=== PATIENT | male | born 1945 | race Caucasian/White ===

== ENCOUNTER → 2020-10-20 14:34 | Outpatient (BNVA) | payer MEDICARE, MEDICAID, SELFPAY | PROVIDERS: PCP Internal Medicine Geriatric Medicine; Visit Provider Urology | DX: N40.1 Benign prostatic hyperplasia with lower urinary tract symptoms (principal); R39.12 Poor urinary stream; N39.0 Urinary tract infection, site not specified; N13.8 Other obstructive and reflux uropathy | CPT/HCPCS: 81002; 99202 ==

== ENCOUNTER 2020-12-27 09:46 | Outpatient (REF) | payer MEDICARE, MEDICAID, SELFPAY ==
--- NOTE | ~2020-12-27 | US_ITS ---
EXAMINATION: US PELVIS LIMITED (BLADDER) CLINICAL INFORMATION: Poor urinary stream. COMPARISON: None TECHNIQUE: Real-time imaging of the bladder. FINDINGS: BLADDER: Well distended. The bladder wall appears thickened and trabeculated. There are 2 bladder diverticuli measuring 2.8 x 1.8 x 1.8 cm on the right and 1.2 x 1.3 x 1.1 cm on the left. There is increased soft tissue seen at the base of the bladder, question representing lobular contour of the prostate gland. The prostate gland protrudes into the base of the bladder. Bilateral ureteral jets are demonstrated. Prevoid bladder volume is 161 mL. Postvoid bladder volume is 34 mL. US/US bladder IMPRESSION: Thickened trabeculated bladder wall with small bilateral bladder diverticuli. 34 mL post void bladder residual. Abnormal soft tissue at the base of the bladder, question related to lobulated contour of the prostate gland.
[2020-12-27 12:50] LABS: Prostate Specific Antigen 0.49 ng/mL (<0.05-4.0)
== END 2020-12-27 09:47 | disposition home or self-care (01) ==
LOC: HO.US 09:46
PROVIDERS: PCP Internal Medicine Geriatric Medicine; Visit Provider Urology
DX: Z12.5 Encounter for screening for malignant neoplasm of prostate (principal); N13.8 Other obstructive and reflux uropathy; R39.12 Poor urinary stream
CPT/HCPCS: 36415; 76857; 84153

== ENCOUNTER → 2021-01-04 13:38 | Outpatient (BNVA) | payer MEDICARE, MEDICAID, SELFPAY | PROVIDERS: PCP Internal Medicine Geriatric Medicine; Visit Provider Urology | DX: N40.1 Benign prostatic hyperplasia with lower urinary tract symptoms (principal); N13.8 Other obstructive and reflux uropathy; N39.0 Urinary tract infection, site not specified; R39.12 Poor urinary stream | CPT/HCPCS: 52000; 99212 ==

== ENCOUNTER 2021-01-24 10:28 | Day surgery (SDC) | payer MEDICARE, MEDICAID, SELFPAY ==
[2021-01-18 13:12] VITALS: BMI 19.3
[2021-01-18 13:15] VITALS: BP 182/78; PULSE 65; RESP 16; O2SAT 98
--- NOTE | 2021-01-18 13:24 | HO.ANESPROP2 ---
Documented by User: Cleopatra Cliffordney 01/18/21 13:45 HPI - Anesthesia Eval Consult details Narrative: 75yo M for Laser Ablation Prostate w/Green Light Routine cardiac visit 11/2020: some SOB non cardiac, probably r/t long smoking hx (denies SOB at [facility]) Suboxone daily PMFSH Active Problems Active Problems: All Active Problems (Updated 01/18/21 @ 13:19 by America Lin) BPH w urinary obs/LUTS (Acute) Recurrent UTI (urinary tract infection) (Acute) Weak urinary stream (Acute) Past Medical History Medical History (Updated 01/24/21 @ 13:27 by Preethi Faye) BPH (benign prostatic hyperplasia) Chronic low back pain Constipation Erectile dysfunction History of endocarditis History of transesophageal echocardiography (RUDDY) HTN (hypertension) Hx of shortness of breath Hx: UTI (urinary tract infection) Opioid dependence PAF (paroxysmal atrial fibrillation) Family History Family history of problems with anesthesia: No Surgical History Surgical History History of back surgery Hx of cardiac catheterization Hx of mitral valve replacement History of Problems with Anesthesia: No Social History Social History Patient Tobacco Use Status: Former Tobacco user Quit Date: 2018 Tobacco use type: Cigarette Years Smoked: 50 Smoked in Last 30 Days: No Are you DNR?: No Advance Directives: No Advance Directives Information Provided: No Advance Directives on File: No Narrative Narrative: No recent illness. No CP or SOB with minimal actvity Meds Allergies Allergy/AdvReac Type Severity Reaction Status Date / Time enalapril [ENALAPRIL] Allergy Severe Angioedema Verified 01/18/21 09:32 hydrochlorothiazide Allergy Severe Angioedema Verified 01/18/21 09:32 trish inhibitors Allergy Severe Angioedema Uncoded 01/18/21 09:32 Home Medications Medication Instructions Recorded Confirmed Last Taken Type amlodipine 10 mg tablet 10 mg PO QAM 10/20/20 01/24/21 01/24/21 05:30 History aspirin 81 mg tablet,delayed 81 mg PO QAM 10/20/20 01/18/21 Unknown History release buprenorphine 8 mg-naloxone 2 mg 5 mg SUBLINGUAL BID 10/20/20 01/24/21 01/24/21 05:30 History sublingual film 4 mg docusate sodium 100 mg capsule 100 mg PO BID 10/20/20 01/18/21 Unknown History finasteride 5 mg tablet 5 mg PO BEDTIME 10/20/20 01/18/21 Unknown History folic acid 1 mg tablet 1 mg PO BEDTIME 10/20/20 01/18/21 Unknown History hydralazine 50 mg tablet 50 mg PO TID 10/20/20 01/24/21 01/24/21 05:30 History lisinopril 10 mg tablet 10 mg PO QAM 10/20/20 01/18/21 Unknown History mirtazapine 30 mg tablet 30 mg PO BEDTIME 10/20/20 Unknown History propranolol 120 mg capsule,24 120 mg PO QAM 10/20/20 01/24/21 01/24/21 05:30 History hr,extended release albuterol sulfate 2 puff PO Q4-6H PRN 01/18/21 01/18/21 Unknown History Exam Exam Date and Time: January 18, 2021 1324 Height,Weight and Vital Signs: Height 5 ft 6 in Weight 54.3 kg Last Vital Signs Pulse 65 01/18/21 13:15 Resp 16 01/18/21 13:15 BP 182/78 H 01/18/21 13:15 Pulse Ox 98 01/18/21 13:15 Pertinent Lab Results Pertinent Lab Results: Outside labs 08/2020 BMP WNL CBC WBC 4.5 HGB 10.8 (L) HCT 33.2 (L) PLT 111 (L) Narrative Narrative: EKG 11/2020 SB @ 59 Low voltage QRS Lateral infarct (unchanged from prior) ECHO 10/2019 Nml LV chamber size. Nml LV wall thickness Nml Regional wall motion. Nml LV systolic function. EF 55-60%. Indeterminate LV diastolic function. Mild dilated RV with nml sys function. Pulm artery sys pressure is elevated. Mod dilated LA. Mod dilated RA [place] bioprosthetic mitral valve well seated and functioning normally. Airway Mallampati Class: II TM Dist: >3cm Neck ROM: Full Denture: Upper and Lower Heart: RRR +M Lungs: CTAB Assessment and Plan Assessment Anesthesia Assessment: Anesthesia Plan Discussed and PAT Visit Documented by User: Preethi Faye 01/24/21 13:28 [facility] Past Medical History Medical History (Updated 01/24/21 @ 13:27 by Preethi Faye) BPH (benign prostatic hyperplasia) Chronic low back pain Constipation Erectile dysfunction History of endocarditis History of transesophageal echocardiography (RUDDY) HTN (hypertension) Hx of shortness of breath Hx: UTI (urinary tract infection) Opioid dependence PAF (paroxysmal atrial fibrillation) Surgical History Surgical History History of back surgery Hx of cardiac catheterization Hx of mitral valve replacement Social History Social History Patient Tobacco Use Status: Former Tobacco user Quit Date: 2018 Tobacco use type: Cigarette Years Smoked: 50 Smoked in Last 30 Days: No Are you DNR?: No Advance Directives: No Advance Directives Information Provided: No Advance Directives on File: No Meds Allergies Allergy/AdvReac Type Severity Reaction Status Date / Time enalapril [ENALAPRIL] Allergy Severe Angioedema Verified 01/18/21 09:32 hydrochlorothiazide Allergy Severe Angioedema Verified 01/18/21 09:32 trish inhibitors Allergy Severe Angioedema Uncoded 01/18/21 09:32 Home Medications Medication Instructions Recorded Confirmed Last Taken Type amlodipine 10 mg tablet 10 mg PO QAM 10/20/20 01/24/21 01/24/21 05:30 History aspirin 81 mg tablet,delayed 81 mg PO QAM 10/20/20 01/18/21 Unknown History release buprenorphine 8 mg-naloxone 2 mg 5 mg SUBLINGUAL BID 10/20/20 01/24/21 01/24/21 05:30 History sublingual film 4 mg docusate sodium 100 mg capsule 100 mg PO BID 10/20/20 01/18/21 Unknown History finasteride 5 mg tablet 5 mg PO BEDTIME 10/20/20 01/18/21 Unknown History folic acid 1 mg tablet 1 mg PO BEDTIME 10/20/20 01/18/21 Unknown History hydralazine 50 mg tablet 50 mg PO TID 03/06/0201/24/21 01/24/21 05:30 History lisinopril 10 mg tablet 10 mg PO QAM 10/20/20 01/18/21 Unknown History mirtazapine 30 mg tablet 30 mg PO BEDTIME 10/20/20 Unknown History propranolol 120 mg capsule,24 120 mg PO QAM 10/20/20 01/24/21 01/24/21 05:30 History hr,extended release albuterol sulfate 2 puff PO Q4-6H PRN 01/18/21 01/18/21 Unknown History Exam Height,Weight and Vital Signs: Vital Signs Temp Pulse Resp BP Pulse Ox 01/24/21 11:25 97.3 F 62 16 167/65 H 99 Airway Mallampati Class: II TM Dist: >3cm Neck ROM: Full Denture: Upper and Lower Heart: RRR + murmur Lungs: CTAB Assessment and Plan Assessment Anesthesia Assessment: Anesthesia Plan Discussed and Chart Reviewed Final Anesthetic Review NPO: Yes ASA Class: III Final Preanesthetic Review: No Changes in Pt Med Stat, Meds/Allgs Chart Reviewed, Consent Obtained/Reviewed and Anes Risks/Benef Reviewed Patient Risk: Intermediate Procedure Risk: Intermediate Assessment/Block/Sedation in SS: Assess/Block/Sedation-SS Anesthetic Plan Anesthetic Plan: GA Disposition: Standard PACU
[2021-01-24] MEDS: levoFLOXacin/D5W 500 MG/100 ML PIGGYBACK 100 MG IV (11:24)
[2021-01-24] MEDS: Lactated Ringers 1,000 ML 50 ML IVCONT (11:24)
[2021-01-24 11:25] VITALS: BP 167/65; PULSE 62; RESP 16; TEMP 36.3; O2SAT 99
--- NOTE | 2021-01-24 12:30 | P.HPSUR_ITS ---
Pre-Procedural Eval Section B Chief Complaint: Hyperplasia Details of Present Illness: BPH Relevant Family History (Specify if Yes): No Relevant Social History: None Present Medications: see Short Stay Collaborative assessment Medical History: No relevant PMH History of Previous Operations: Relevant previous surgery/procedure and date(s) Allergies: Allergies Allergy/AdvReac Type Severity Reaction Status Date / Time enalapril [ENALAPRIL] Allergy Severe Angioedema Verified 01/18/21 09:32 hydrochlorothiazide Allergy Severe Angioedema Verified 01/18/21 09:32 trish inhibitors Allergy Severe Angioedema Uncoded 01/18/21 09:32 Review of Systems Sugical H&P ROS: Negative: Constitution, Cardiovascular, Respiratory, Neurological, Psychiatric, Hem-Onc, Allergic/Immunologic, Gastrointestinal, Genitourinary, Musculoskeletal, Integumentary, Endocrine and Eyes/Ea rs/Nose/Throat Exam Surgical H&P Exam: Normal: HEENT, Normal: Heart, Normal: Lungs, Normal: Extremities, Normal: Abdomen, Normal: Skin and Normal: Neurological Plan Diagnosis/Plan: Unchanged (GreenLight laser prostatectomy) I have reviewed the history and physical and performed a pertinent physical examination on my patient. No changes have occurred unless specified.
--- NOTE | 2021-01-24 13:41 | W.PM.OPN ---
Operative Note Operative Note Date of Service: 01/24/21 Narrative: PreOperative Diagnosis: Bladder outlet obstruction Post Operative Diagnosis: Bladder outlet obstruction Procedure: GreenLight laser enucleation of the prostate Surgeon: Dr Bernardo Jones Anesthesia: General Indications for procedure: History of bladder outlet obstruction. Treated with alpha-chula and other medications. Still with symptoms. On cystoscopy in office has - prominent median lobe Recommendation for prostate procedure with laser enucleation of prostate. It has been discussed. Focus was placed on development of retrograde examination which is a normal part of this procedure. Procedure: After informed consent was verified the patient was brought to the operating room and placed in a supine position. Anesthesia was administered per protocol. Patient was placed in modified dorsal lithotomy position and prepped and draped in a sterile fashion. Safety pause time-out was confirmed. Antibiotics have been given. Twenty-four [place] laser cystoscope was inserted per urethra. No abnormalities found the anterior posterior urethra. The bladder was filled on both ureteric orifices were seen in normal position away from our area of interest. Using a GreenLight laser settings of 80 w incisions were made at the 5 and 7 o'clock position. They were taken down and then laterally on each side. They were brought from the bladder neck down to the level of the veru. These defined the lateral aspects of the median lobe area. The median lobe was ablated and enucleated tissue removed. Once the median lobe area had been cleaned attention was directed to the lateral lobes. We started with the patient's left lateral lobe. Firstly the 05:00 o'clock groove was further developed. This was moved in the lateral position to undermine the tissue on the lateral side. Focus was then placed on the laser at the 1 o'clock position in developing a secondary groove down to the level of bladder fibers. The intervening tissue between these 2 grooves was removed with a combination of enucleation ablation working from the apex toward the bladder neck. A similar procedure was repeated on the patient's right-hand side. When this was completed debris and pieces of prostate removed from the bladder. Both ureteric orifices were reviewed again in shown to be patent in away from any areas of energy damage. The apical area was reviewed in any stray ooze was controlled. A 22 [place] 30 cc balloon Monroy catheter was placed over stylet into the bladder. Clear efflux was obtained. 30 cc was placed in the balloon and gentle traction was placed. A snap was used to hold tension once the patient will be moved and transported. Once transportation its finish this novel be removed. A belladonna and opiate suppository was placed for postprocedure pain management. He tolerated procedure well was extubated in the operating and transferred in a stable condition to the recovery area. One hundred six kilojoule, lasing time 14 minutes Pathology: Prostate tissue Drains: Monroy catheter
[2021-01-24 13:50] VITALS: BP 134/51; PULSE 61; RESP 12; TEMP 36.3; O2SAT 99
[2021-01-24 13:55] VITALS: BP 148/66; PULSE 61; RESP 16; O2SAT 96
[2021-01-24 14:00] VITALS: BP 159/61; PULSE 60; RESP 16; O2SAT 96
[2021-01-24 14:05] VITALS: BP 158/66; PULSE 66; RESP 16; O2SAT 95
[2021-01-24 14:20] VITALS: BP 152/64; PULSE 63; RESP 16; TEMP 36.3; O2SAT 96
== END 2021-01-24 15:10 | disposition home or self-care (01) ==
PROVIDERS: PCP Internal Medicine Geriatric Medicine; Visit Provider Urology
PROC: (CPT 52648; principal; 2021-01-24 12:20)
DX: N40.1 Benign prostatic hyperplasia with lower urinary tract symptoms (principal); N13.8 Other obstructive and reflux uropathy; I10 Essential (primary) hypertension; I48.0 Paroxysmal atrial fibrillation; Z79.01 Long term (current) use of anticoagulants; Z79.82 Long term (current) use of aspirin; Z79.899 Other long term (current) drug therapy; Z87.891 Personal history of nicotine dependence; Z88.8 Allergy status to other drugs, medicaments and biological substances
CPT/HCPCS: 52649; 88305; J1100; J1956; J2405; J3010

== ENCOUNTER → 2021-01-27 11:18 | Outpatient (BNVA) | payer MEDICARE, MEDICAID, SELFPAY | PROVIDERS: PCP Internal Medicine Geriatric Medicine; Visit Provider Urology | DX: N40.1 Benign prostatic hyperplasia with lower urinary tract symptoms (principal); N13.8 Other obstructive and reflux uropathy; N39.0 Urinary tract infection, site not specified; R39.12 Poor urinary stream | CPT/HCPCS: 51700; 99212 ==

== ENCOUNTER 2021-05-04 16:33 | Outpatient (REF) | payer MEDICARE, MEDICAID, SELFPAY ==
--- NOTE | ~2021-05-04 | XR_ITS ---
EXAMINATION: XR CHEST CLINICAL INFORMATION: Abnormal weight loss COMPARISON: Previous chest x-ray February 2017 TECHNIQUE: 2 views of the chest were obtained. FINDINGS: The heart does not appear enlarged. There are new postsurgical changes. Hilar and mediastinal contours are unremarkable. The lungs are clear. There is no pleural effusion or pneumothorax. There are old left posterior lower rib fractures. There are median sternotomy wires. XR/XR chest 2V IMPRESSION: No evidence for acute disease in the chest. Cardiac postsurgical changes new in the interval from February 2017.
== END 2021-05-04 16:34 | disposition home or self-care (01) ==
LOC: HO.XRAY 16:33
PROVIDERS: PCP Internal Medicine Geriatric Medicine; Visit Provider Internal Medicine Geriatric Medicine
DX: R63.4 Abnormal weight loss (principal)
CPT/HCPCS: 71046

== ENCOUNTER 2021-06-21 13:41 | Outpatient (REF) | payer MEDICARE, MEDICAID, SELFPAY ==
[2021-06-21 16:15] LABS: Alanine Aminotransferase 10 U/L (0-40); Albumin Level 4.2 g/dL (3.5-5.0); Alkaline Phosphatase 62 U/L (39-117); Anion Gap 10 (12-20); Aspartate Amino Transferase 16 U/L (5-37); Bilirubin Total 0.4 mg/dL (0.0-1.0); Blood Urea Nitrogen 16 mg/dL (9-16); Calcium 9.1 mg/dL (8.4-10.2); Carbon Dioxide 30 mmol/L (22-29); Chloride 102 mmol/L (96-108); Estimated Glomerular Filt Rate 48; Glucose Random 102 mg/dL (60-115); Sodium 138 mmol/L (135-145); Total Protein 7.3 g/dL (6.5-8.0)
== END 2021-06-21 13:42 | disposition home or self-care (01) ==
LOC: HO.LAB 13:41
PROVIDERS: PCP Internal Medicine Geriatric Medicine; Referring Provider Internal Medicine Geriatric Medicine; Visit Provider Nurse Practitioner
DX: R63.4 Abnormal weight loss (principal); R09.89 Other specified symptoms and signs involving the circulatory and respiratory systems; R25.1 Tremor, unspecified
CPT/HCPCS: 36415; 80053; 99202

== ENCOUNTER 2023-07-18 10:31 | Outpatient (REF) | payer MEDICARE, MEDICAID, SELFPAY ==
[2023-07-18 11:13] LABS: MANUAL DIFF FLAG NO
[2023-07-18 11:36] LABS: Basophils Absolute Auto 0.1 X10*3/uL (0.0-0.2); Basophils Percent Auto 1.1 % (0-2); Eosinophils Absolute Auto 0.1 X10*3/uL (0.0-0.4); Eosinophils Percent Auto 1.1 % (0-4); Hemoglobin 13.3 g/dl (14.0-18.0); Imm Gran Abs Auto 0.02 X10*3/uL (0.00-0.03); Imm Gran Pct Auto 0.3 % (0.0-0.4); Lymphocytes Absolute Auto 2.8 X10*3/uL (1.2-4.9); Lymphocytes Percent Auto 38.9 % (20-40); Mean Corpuscular HGB Conc 31.7 g/dl (31.0-36.0); Mean Corpuscular Hemoglobin 28.2 pg (27.0-33.0); Mean Corpuscular Volume 89.2 fL (80.0-98.0); Monocytes Absolute Auto 0.6 X10*3/uL (0.1-1.2); Monocytes Percent Auto 7.5 % (2-11); Neutrophils Absolute Auto 3.7 x10*3/uL (2.0-8.3); Neutrophils Percent Auto 51.1 % (45-73); Platelet Count 196 X10*3/uL (160-400); Red Blood Count 4.71 X10*6/uL (4.60-5.80); Red Cell Distribution Width 12.2 % (11.0-16.0); White Blood Count 7.3 X10*3/uL (4.8-10.8)
[2023-07-18 12:12] LABS: Alanine Aminotransferase 9 U/L (0-40); Albumin Level 4.2 g/dL (3.5-5.0); Alkaline Phosphatase 78 U/L (39-117); Anion Gap 14 (12-20); Aspartate Amino Transferase 19 U/L (5-37); Bilirubin Direct 0.2 mg/dL (0.0-0.5); Bilirubin Total 0.6 mg/dL (0.0-1.0); Blood Urea Nitrogen 16 mg/dL (9-16); Calcium 9.7 mg/dL (8.4-10.2); Carbon Dioxide 29 mmol/L (22-29); Chloride 99 mmol/L (96-108); Estimated Glomerular Filt Rate > 60; Glucose Random 97 mg/dL (60-115); Potassium 3.4 mmol/L (3.3-5.1); Sodium 139 mmol/L (135-145); Total Protein 8.3 g/dL (6.5-8.0)
== END 2023-07-18 10:32 | disposition home or self-care (01) ==
LOC: HO.HHCL 10:31
PROVIDERS: Visit Provider Internal Medicine Geriatric Medicine
DX: I10 Essential (primary) hypertension (principal)
CPT/HCPCS: 36415; 80048; 80076; 85025

== ENCOUNTER 2023-09-12 10:27 | Outpatient (REF) | payer MEDICARE, MEDICAID, SELFPAY ==
[2023-09-12 12:26] LABS: Cholesterol 154 mg/dL (<200); HDL Cholesterol 33 mg/dL (>40); LDL Cholesterol Calculated 104 mg/dL (<100); Triglycerides 87 mg/dL (<150)
== END 2023-09-12 10:28 | disposition home or self-care (01) ==
LOC: HO.HHCL 10:27
PROVIDERS: Visit Provider Internal Medicine Geriatric Medicine
DX: I25.10 Atherosclerotic heart disease of native coronary artery without angina pectoris (principal)
CPT/HCPCS: 36415; 80061

== ENCOUNTER 2023-11-07 10:17 | Outpatient (REF) | payer MEDICARE, MEDICAID, SELFPAY ==
[2023-11-07 11:58] LABS: Anion Gap 9 (12-20); Blood Urea Nitrogen 15 mg/dL (9-16); Calcium 9.5 mg/dL (8.4-10.2); Carbon Dioxide 32 mmol/L (22-29); Chloride 103 mmol/L (96-108); Estimated Glomerular Filt Rate > 60; Glucose Random 103 mg/dL (60-115); Potassium 3.8 mmol/L (3.3-5.1); Sodium 140 mmol/L (135-145)
== END 2023-11-07 10:18 | disposition home or self-care (01) ==
LOC: HO.HHCL 10:17
PROVIDERS: Visit Provider Internal Medicine Geriatric Medicine
DX: I10 Essential (primary) hypertension (principal); F32.A Depression, unspecified
CPT/HCPCS: 36415; 80048

== ENCOUNTER 2024-05-29 13:54 | Outpatient (REF) | payer MEDICARE, MEDICAID, SELFPAY | END 2024-05-29 13:55 | disposition home or self-care (01) | LOC: HO.LNP 13:54 | PROVIDERS: PCP Internal Medicine Geriatric Medicine; Visit Provider Surgery | DX: L72.0 Epidermal cyst (principal) | CPT/HCPCS: 11403; 88304; 99202 ==

== ENCOUNTER 2024-05-29 13:54 | Outpatient (AMB) | payer MEDICARE, MEDICAID, SELFPAY ==
--- NOTE | 2024-05-29 13:57 | MHC.OFFVIS ---
Vital Signs 05/29/24 14:05 Height 5 ft 6 in Weight 121 lb BMI 19.5 Intake Visit Reasons: Skin cyst Intake Note: This patient presents for skin cyst assessment. Pt c/o; reports large cyst left chest wall, reports he developed this after heart surgery for valve 4-5 years ago, reports was never given antibiotics for this issue. Senior Medical Writer Required: Yes Senior Medical Writer Language: Appliance Assembler Services: Senior Medical Writer Offered & Declined (Daughter present during visit) Accompanied by: Daughter Allergies enalapril [ENALAPRIL] Allergy (Severe, Verified 05/29/24 14:06) Angioedema hydrochlorothiazide Allergy (Severe, Verified 05/29/24 14:06) Angioedema trish inhibitors Allergy (Severe, Uncoded 05/29/24 14:06) Angioedema Medication List - Last Reconciled 05/29/24 by Aubrey Evans MD albuterol sulfate 90 mcg/actuation 2 puffs PO Q4-6H PRN amlodipine 10 mg PO QAM aspirin 81 mg PO QAM buprenorphine-naloxone 8-2 mg 5 mg sublingual BID docusate sodium 100 mg PO BID finasteride 5 mg PO BEDTIME finasteride 5 mg PO DAILY 30 days folic acid 1 mg PO BEDTIME furosemide 20 mg PO DAILY hydralazine 50 mg PO TID hydralazine 25 mg PO BID lisinopril 10 mg PO QAM mirtazapine 30 mg PO BEDTIME naloxone 4 mg/actuation (Narcan) 1 spray intranasal ONCE PRN propranolol ER 120 mg PO QAM sertraline 50 mg PO DAILY tamsulosin 0.4 mg PO BEDTIME tramadol 50 mg PO Q6H PRN trimethoprim 100 mg PO Q12H 10 days HPI HPI Skin cyst: Details: 78-year-old male here for a cyst on the anterior chest wall. He has had this for years. This has been increasing in size. He occasionally notices some foul-smelling drainage. Wants this removed therefore. [facility] Medical History (Updated 05/29/24 @ 14:31 by Aubrey Evans MD) Epidermal inclusion cyst Opioid dependence PAF (paroxysmal atrial fibrillation) History of transesophageal echocardiography (RUDDY) History of endocarditis BPH (benign prostatic hyperplasia) HTN (hypertension) Hx of shortness of breath Hx: UTI (urinary tract infection) Erectile dysfunction Constipation Chronic low back pain Surgical History History of back surgery Hx of cardiac catheterization Hx of mitral valve replacement Social History Patient Tobacco Use Status: Former Tobacco user Tobacco use type: Cigarette Years Smoked: 50 Review of Systems Const Denies chills and Denies fever(s) Card Denies chest pain, Denies dyspnea and Denies dyspnea on exertion Resp Denies cough, Denies dyspnea and Denies dyspnea on exertion GI Denies hematochezia and Denies change in bowel habits Denies hematuria and Denies difficulty urinating Musc Denies back pain and Denies limited range of motion Neuro Denies focal weakness and Denies convulsions Psych Denies depression and Denies mood swings Physical Exam Vital Signs: BMI result Body Mass Index 19.5 Const General: comfortable and no acute distress Orientation/consciousness: patient oriented x3 Neck Neck: Yes no lymphadenopathy Chest Other: Well-defined cystic mass on the left anterior chest wall consistent with epidermal inclusion cyst, measuring about 2.5 cm Resp Auscultation: clear to auscultation bilaterally Cardio Rhythm: regular rhythm GI Palpation (GI): Soft to palpation, nontender and no guarding Neuro General: patient oriented x3 Office Procedures Excision Details: He was in supine position. The area of the cyst was prepped and draped. Lidocaine 1% was used for local anesthesia. I made an incision on the skin overlying the cyst using blade 15. And this was carried down through the full-thickness of the skin. I did sharp dissection with fine scissors until was able to visualize the cyst capsule. I sharply dissected around the cyst capsule until I was able to circumferentially separate this. This was sent as a specimen. This measured about 2.5 cm. I irrigated. I closed the incision with full-thickness nylon 3-0 simple interrupted sutures. Dressings were applied. The procedure was completed. There was minimal blood loss. 28874-zfdef/arms/legs 2.1-3cm Procedure code (CPT) selection complete Assessment & Plan Assessment & Plan (1) Epidermal inclusion cyst: Code(s): L72.0 - Epidermal cyst Category: Medical Plan: Excision of this epidermal inclusion cyst was done under local anesthesia. He tolerated the procedure well. He was given wound care instructions. He can take Tylenol or ibuprofen p.r.n. for pain. I will see him in the office in about 2 weeks for removal of sutures. Coding Level of Care Code New Pt Level 3 (72618) Diagnoses Epidermal inclusion cyst L72.0 CPT Codes Trunk/Arms/Legs - CPT: 30234-zciqf/arms/legs 2.1-3cm ([id number])
[2024-05-29 14:05] VITALS: BMI 19.5
== END 2024-05-29 14:21 | disposition home or self-care (01) ==
PROVIDERS: PCP Internal Medicine Geriatric Medicine; Visit Provider Surgery
DX: L72.0 Epidermal cyst (principal)
CPT/HCPCS: 11403; 99203

== ENCOUNTER 2024-06-12 13:17 | Outpatient (AMB) | payer MEDICARE, MEDICAID, SELFPAY ==
--- NOTE | 2024-06-12 13:18 | A.OFFVIS_ITS ---
Intake Visit Reasons: stitches to be removed Intake Note: This patient presents for suture removal status post excision of epidermal inclusion cyst. Pt c/o; reports some bleeding from the incision, reports no fever, chills, nausea or vomiting. Real Estate Sales Supervisor Required: Yes Real Estate Sales Supervisor Language: Patient Appointment Coordinator Services: Real Estate Sales Supervisor Present Real Estate Sales Supervisor Name: Jane Information Interpreted: non-clinical & clinical Accompanied by: Other Relationship Allergies enalapril [ENALAPRIL] Allergy (Severe, Verified 06/12/24 13:27) Angioedema hydrochlorothiazide Allergy (Severe, Verified 06/12/24 13:27) Angioedema trish inhibitors Allergy (Severe, Uncoded 06/12/24 13:27) Angioedema HPI HPI stitches to be removed: Details: He underwent excision of a cyst from the anterior chest wall last May 29, 2024. This was done under local anesthesia. He tolerated procedure well. He currently denies complaints. [facility] Medical History Epidermal inclusion cyst Opioid dependence PAF (paroxysmal atrial fibrillation) History of transesophageal echocardiography (RUDDY) History of endocarditis BPH (benign prostatic hyperplasia) HTN (hypertension) Hx of shortness of breath Hx: UTI (urinary tract infection) Erectile dysfunction Constipation Chronic low back pain Surgical History History of excision of epidermal inclusion cyst (~05/29/24) History of back surgery Hx of cardiac catheterization Hx of mitral valve replacement Social History Patient Tobacco Use Status: Former Tobacco user Tobacco use type: Cigarette Years Smoked: 50 Review of Systems Const Denies chills and Denies fever(s) Physical Exam Const General: comfortable and no acute distress Chest Other: Excision site is well healed, not infected, sutures intact Assessment & Plan Assessment & Plan (1) Epidermal inclusion cyst: Code(s): L72.0 - Epidermal cyst Category: Medical Plan Status post excision. I removed his sutures. The incision is well healed although there is some scabbing. His path report shows an epidermal cyst. He can follow up on a p.r.n. basis. Coding Level of Care Code Global (86462) Diagnoses Epidermal inclusion cyst L72.0
== END 2024-06-12 13:40 | disposition home or self-care (01) ==
LOC: HO.HGS 13:18
PROVIDERS: PCP Internal Medicine Geriatric Medicine; Visit Provider Surgery
DX: L72.0 Epidermal cyst (principal)
CPT/HCPCS: 99024

== ENCOUNTER → 2024-06-12 13:17 | Outpatient (BNVA) | payer MEDICARE, MEDICAID, SELFPAY | PROVIDERS: PCP Internal Medicine Geriatric Medicine; Visit Provider Surgery | DX: Z48.02 Encounter for removal of sutures (principal); Z87.2 Personal history of diseases of the skin and subcutaneous tissue | CPT/HCPCS: 99212 ==

== ENCOUNTER 2024-07-02 11:09 | Outpatient (REF) | payer MEDICARE, MEDICAID, SELFPAY ==
[2024-07-02 13:26] LABS: MANUAL DIFF FLAG NO
[2024-07-02 13:31] LABS: Basophils Absolute Auto 0.1 X10*3/uL (0.0-0.2); Basophils Percent Auto 1.2 % (0-2); Eosinophils Absolute Auto 0.1 X10*3/uL (0.0-0.4); Eosinophils Percent Auto 1.7 % (0-4); Hematocrit 34.7 % (42.0-52.0); Hemoglobin 10.9 g/dl (14.0-18.0); Imm Gran Abs Auto 0.01 X10*3/uL (0.00-0.03); Imm Gran Pct Auto 0.2 % (0.0-0.4); Lymphocytes Absolute Auto 1.5 X10*3/uL (1.2-4.9); Lymphocytes Percent Auto 26.4 % (20-40); Mean Corpuscular HGB Conc 31.4 g/dl (31.0-36.0); Mean Corpuscular Hemoglobin 29.1 pg (27.0-33.0); Mean Corpuscular Volume 92.5 fL (80.0-98.0); Mean Platelet Volume 12.4 fL (9.4-12.4); Monocytes Absolute Auto 0.4 X10*3/uL (0.1-1.2); Monocytes Percent Auto 7.6 % (2-11); Neutrophils Absolute Auto 3.7 x10*3/uL (2.0-8.3); Neutrophils Percent Auto 62.9 % (45-73); Platelet Count 167 X10*3/uL (160-400); Red Blood Count 3.75 X10*6/uL (4.60-5.80); Red Cell Distribution Width 13.2 % (11.0-16.0); White Blood Count 5.8 X10*3/uL (4.8-10.8)
[2024-07-02 13:50] LABS: Alanine Aminotransferase 10 U/L (0-40); Albumin Level 4.1 g/dL (3.5-5.0); Alkaline Phosphatase 70 U/L (39-117); Anion Gap 9 (12-20); Aspartate Amino Transferase 21 U/L (5-37); Bilirubin Total 0.5 mg/dL (0.0-1.0); Blood Urea Nitrogen 17 mg/dL (9-16); Calcium 9.1 mg/dL (8.4-10.2); Carbon Dioxide 32 mmol/L (22-29); Chloride 102 mmol/L (96-108); Estimated Glomerular Filt Rate 50; Glucose Random 100 mg/dL (60-115); Potassium 3.9 mmol/L (3.3-5.1); Sodium 139 mmol/L (135-145); Total Protein 7.4 g/dL (6.5-8.0)
[2024-07-02 14:02] LABS: HIV AB/AG Nonreactive (Nonreactive); HIV Num 1 0.04 S/CO (0.00-0.99); ~HepC Num1 0.41 S/CO (0.00-0.79); ~Hepatitis C Antibody Nonreactive (Nonreactive)
[2024-07-02 14:09] LABS: TSH reflex Free T4 2.24 uIU/mL (0.32-4.0)
[2024-07-02 14:10] LABS: Erythrocyte Sedimentation Rate 18 MM/HR (0-15)
== END 2024-07-02 11:10 | disposition home or self-care (01) ==
LOC: HO.HHCL 11:09
PROVIDERS: Visit Provider Internal Medicine Geriatric Medicine
DX: R63.4 Abnormal weight loss (principal)
CPT/HCPCS: 36415; 80053; 84443; 85025; 85652; 86803; 87389

== ENCOUNTER 2024-07-23 12:41 | Outpatient (REF) | payer MEDICARE, MEDICAID, SELFPAY ==
--- NOTE | 2024-07-24 08:01 | MHC.AU.MED ---
Medical Clearance for Hearing Instrumentation Date: 07/24/24 Patient Name: Samuel Escudero Date of : 1945 Primary Care Provider: Dr Harvinder Melvin We have seen your patient on 07/24/24 and have determined that they are a candidate for amplification (See accompanying report). Specifically, they would benefit from: Hearing aid use in both ears There is a statute that addresses Medical Evaluation Requirements prior to fitting a patient with a hearing aid. According to [place] statute [facility] CMR:6.03(1), (a) General. Except as provided in 265 CMR 6.03(1)(b), a scanner supervisor shall not sell a hearing aid unless the prospective user has presented to the scanner supervisor a written statement signed by a licensed physician that states that the patient's hearing loss has been medically evaluated and the patient may be considered a candidate for a hearing aid. The medical evaluation must have taken place within the preceding six months. Please note: Due to the [place] Statute referenced above, we cannot accept a signature other than that of a licensed physician. FIRE SAFETY INSPECTOR and PA signatures cannot be accepted. I am in agreement with the above recommendation. There is no medical contraindication for hearing instrumentation. Physician Signature Date Physician Name (Printed)
--- NOTE | 2024-07-24 08:15 | MHC.AU.HA1 ---
Hearing Aid Evaluation Date of Visit: 07/23/24 Physiology Teacher Used: Historical Information: Description of Hearing: Right ear: normal sloping to severe SNHL Left ear: profound SNHL Summary: Serbian is here for evaluation and hearing aid selection with his daughter who interpreted. He reportedly wore hearing aids over 20 years ago but has not worn any amplification since. Initially reported hesitation about trying hearing aids again but became more enthusiastic about the idea as we spoke about new options, acknowledges frustration with not being able to understand people. Discussed unilateral fitting vs bicros, would like to try bicros to start. Will request medical clearance and contact pt once aids arrive. Hearing Aid Prescription: Based on the individual?s shared listening needs, communication environments, dexterity, desire for connectivity, and personal preferences, the following prescription for amplification has been made: Right ear: Make, Model, Color: Oticon Real 2 miniRITE R, kayleigh black Battery Size: Rechargeable Medical Dir/Slim Tube: 2 85g Type of Earmold/Dome/CShell/SlimTip: 8mm dbl weaver Left ear: Left ear prescription to be same as Right Hearing Aid above: Make, Model, Color: Oticon Real 2 miniRITE R CROS, kayleigh black Battery Size: Rechargeable Medical Dir/Slim Tube: 2 cros Type of Earmold/Dome/CShell/SlimTip: 8mm open Accessories/Assistive Technology Recommended: manager psychology Plan of Care: Patient wishes to purchase hearing aids as prescribed Action Taken/Action Needed: Medical Clearance to be requested from PCP/ENT Hearing Instrument Fitting to be scheduled when materials arrive Primary Diagnosis: H90.3 Bilateral Sensorineural Hearing Loss Signature: Provider: Urban Martinez, CCC-A
== END 2024-07-23 12:42 | disposition home or self-care (01) ==
LOC: HO.SH 12:41
PROVIDERS: Visit Provider Family Medicine
DX: Z01.118 Encounter for examination of ears and hearing with other abnormal findings (principal); Z46.1 Encounter for fitting and adjustment of hearing aid; H90.3 Sensorineural hearing loss, bilateral
CPT/HCPCS: 92557; 92591

== ENCOUNTER 2024-08-28 10:35 | Outpatient (REF) | payer MEDICARE, MEDICAID, SELFPAY | END 2024-08-28 10:36 | disposition home or self-care (01) | LOC: HO.HAP 10:35 | PROVIDERS: Visit Provider Internal Medicine Geriatric Medicine | DX: Z46.1 Encounter for fitting and adjustment of hearing aid (principal); H90.3 Sensorineural hearing loss, bilateral | CPT/HCPCS: V5011; V5020; V5221; V5240 ==

== ENCOUNTER 2024-11-03 13:53 | Outpatient (REF) | payer MEDICARE, MEDICAID, SELFPAY ==
--- NOTE | ~2024-11-03 | XR_ITS ---
EXAMINATION: XR CHEST 2 VIEWS HISTORY: weight loss COMPARISON: Comparison is made with the prior examination dated 05/04/2021. FINDINGS: PA and lateral views of the chest are submitted. In the hyperinflated, consistent with COPD. The lungs are clear. There is no pleural effusion, pneumothorax, or pulmonary vascular congestion. The heart is normal in size. The patient is status post median sternotomy and valve replacement. The aorta is calcified. The bones are intact. XR/XR chest 2V IMPRESSION: COPD. No acute cardiopulmonary abnormality. Electronically signed by: Mic Dumont MD 11/03/2024 02:35 PM EDT
[2024-11-03 16:12] LABS: MANUAL DIFF FLAG NO
[2024-11-03 16:25] LABS: Basophils Absolute Auto 0.1 X10*3/uL (0.0-0.2); Basophils Percent Auto 1.5 % (0-2); Eosinophils Absolute Auto 0.1 X10*3/uL (0.0-0.4); Eosinophils Percent Auto 1.1 % (0-4); Hematocrit 35.5 % (42.0-52.0); Imm Gran Abs Auto 0.01 X10*3/uL (0.00-0.03); Imm Gran Pct Auto 0.2 % (0.0-0.4); Lymphocytes Absolute Auto 2.1 X10*3/uL (1.2-4.9); Lymphocytes Percent Auto 31.8 % (20-40); Mean Corpuscular Volume 93.7 fL (80.0-98.0); Mean Platelet Volume 12.9 fL (9.4-12.4); Monocytes Absolute Auto 0.5 X10*3/uL (0.1-1.2); Monocytes Percent Auto 6.9 % (2-11); Neutrophils Absolute Auto 3.8 x10*3/uL (2.0-8.3); Neutrophils Percent Auto 58.5 % (45-73); Platelet Count 211 X10*3/uL (160-400); Red Blood Count 3.79 X10*6/uL (4.60-5.80); Red Cell Distribution Width 12.8 % (11.0-16.0); White Blood Count 6.5 X10*3/uL (4.8-10.8)
[2024-11-03 16:42] LABS: Alanine Aminotransferase 9 U/L (0-40); Albumin Level 4.1 g/dL (3.5-5.0); Anion Gap 12 (12-20); Aspartate Amino Transferase 25 U/L (5-37); Bilirubin Total 0.5 mg/dL (0.0-1.0); Blood Urea Nitrogen 23 mg/dL (9-16); Calcium 9.7 mg/dL (8.4-10.2); Carbon Dioxide 29 mmol/L (22-29); Chloride 104 mmol/L (96-108); Estimated Glomerular Filt Rate 44; Glucose Random 85 mg/dL (60-115); Iron 57 mcg/dL (45-160); Percent Iron Saturation 26 % (15-50); Potassium 4.9 mmol/L (3.3-5.1); Sodium 140 mmol/L (135-145); Total Iron Binding Capacity 221 mcg/dL (228-428); Total Protein 7.6 g/dL (6.5-8.0); Unsaturated Iron Binding 164 ug/dL
[2024-11-03 17:02] LABS: Alkaline Phosphatase 55 U/L (39-117)
[2024-11-03 17:03] LABS: Erythrocyte Sedimentation Rate 20 MM/HR (0-15); Vitamin D 25-OH Total 14.2 ng/mL (>30)
[2024-11-03 17:17] LABS: Ferritin 240 ng/mL (20-250)
[2024-11-04 05:21] LABS: HIV AB/AG Nonreactive (Nonreactive); HIV Num 1 0.09 S/CO (0.00-0.99); ~HepC Num1 0.35 S/CO (0.00-0.79); ~Hepatitis C Antibody Nonreactive (Nonreactive)
[2024-11-04 05:33] LABS: HBS Num1 0.66 mIU/mL (0-7.99); HBc Num1 0.09 S/CO (0.00-0.79); HBsAGNum1 0.27 S/CO (0.00-0.99); Hepatitis B Core Antibody Nonreactive (Nonreactive); Hepatitis B Surface Antigen Negative (Negative); ~Hepatitis B Surface Antibody NONREACTIVE (Nonreactive)
== END 2024-11-03 13:54 | disposition home or self-care (01) ==
LOC: HO.HHCL 13:53
PROVIDERS: Family Medicine; Visit Provider Internal Medicine Geriatric Medicine
DX: Z00.01 Encounter for general adult medical examination with abnormal findings (principal); R63.4 Abnormal weight loss; D64.9 Anemia, unspecified; Z91.81 History of falling
CPT/HCPCS: 36415; 71046; 80053; 82306; 82728; 83540; 84443; 85025; 85652; 86704; 86706; 86803; 87340; 87389

== ENCOUNTER → 2024-11-03 14:08 | Outpatient (BNV) | payer MEDICARE, MEDICAID, SELFPAY | PROVIDERS: Visit Provider Radiology Diagnostic Radiology | DX: J44.9 Chronic obstructive pulmonary disease, unspecified (principal) | CPT/HCPCS: 71046 ==

== ENCOUNTER 2025-02-17 10:23 | Outpatient (REF) | payer MEDICARE, MEDICAID, SELFPAY ==
--- OUTSIDE RECORDS SUMMARY | 2025-02-17 11:16 | XMS_ITS | Clinical Summary ---
Author Organization [facility] Facility Address [address] [address] Care Team Providers Care Automation Architect Name Role Phone Luis Perdomo MD Primary Care Provider [phone] Allergies Active Allergy Reactions Criticality Noted Date Comments Tomi Inhibitors Swelling 09/02/2021 Hydrochlorothiazide 09/02/2021 Medications Aspirin Low Dose 81 MG EC tablet Take 81 mg by mouth 1 Active Suboxone 8-2 MG per SL film DISSOLVE 1/2 FILM UNDER THE TONGUE TWICE DAILY 1 Active docusate sodium (COLACE) 100 MG capsule TAKE 1 CAPSULE BY MOUTH TWICE DAILY IN THE MORNING AND IN THE EVENING 1 Active finasteride (PROSCAR) 5 MG tablet Take 5 mg by mouth at bed time 1 Active folic acid (FOLVITE) 1 MG tablet Take 1,000 mcg by mouth at bed time 1 Active Narcan 4 MG/0.1ML liquid FOR SUSPECTED OPIOID OVERDOSE. SPRAY 0.1mL IN ONE NOSTRIL. REPEAT IN ALTERNATE NOSTRIL 2-3 MINUTES IF NEEDED. SEEK MEDICAL ATTENTION IMMEDIATELY EVEN IF PT RESPONDS. 1 Active propranolol LA (INDERAL LA) 120 MG 24 hr capsule Take 120 mg by mouth 1 Active sertraline (ZOLOFT) 50 MG tablet 1 Active cyanocobalamin (VITAMIN B-12) 1000 MCG tablet Take 1,000 mcg by mouth 1 (one) time each day Active albuterol HFA (PROVENTIL HFA;VENTOLIN HFA) 108 (90 Base) MCG/ACT inhaler Inhale 2 puffs every 6 (six) hours if needed for wheezing Active terazosin (HYTRIN) 2 MG capsule Take 2 mg by mouth every night Active amLODIPine (NORVASC) 10 MG tabletIndicatio ns:Essential (primary) hypertension,St age 3b chronic kidney disease (HCC) TAKE 1 TABLET BY MOUTH EVERY EVENING 90 tablet 3 3 Active Active Problems Problem Noted Date Diagnosed Date Stage 3b chronic kidney disease 09/05/2021 Essential (primary) hypertension 07/11/2021 Vitamin B12 deficiency 07/11/2021 Social History Tobacco Use Types Packs/Day Years Used Date Smoking Tobacco: Never Assessed Sex and Gender Information Value Date Recorded Sex Assigned at Not on file Legal Sex Male 4:54 PM EST Gender Identity Not on file Sexual Orientation Not on file Last Filed Vital Signs Vital Sign Reading Time Taken Comments Blood Pressure 160/60 09/05/2021 1:31 PM EST Pulse 75 09/05/2021 1:31 PM EST Temperature - - Respiratory Rate - - Oxygen Saturation 98% 09/05/2021 1:31 PM EST Inhaled Oxygen Concentration - - Weight 54.7 kg (120 lb 9.6 oz) 09/05/2021 1:31 P M EST Height - - Body Mass Index - - Plan of Treatment Health Maintenance Due Date Last Done Comments Pneumococcal Vaccine: 50+ Ye ars (1 of 2 - PCV) 1966 Influenza Vaccine (#1) 2025 Hepatitis B Vaccine Aged Out No longe r eligible based on patient's age to complete this topic Insurance Medicare Medicaid [place] Care Teams Automation Architect Relationship Specialty Start Date End Date Luis Perdomo MD PCP - General Nephrology 09/05/21
--- OUTSIDE RECORDS SUMMARY | 2025-02-17 11:16 | XMS_ITS | Clinical Summary ---
Author Organization [employer] Address [address] [place] [address] Care Team Providers Care Sexual Assault Counselor Name Role Phone Name, Harvinder CLAROS Primary Care Provider [phone] Laz Smith MD Unavailable [phone] Letha Luna MD Unavailable Allergies Active Allergy Reactions Criticality Noted Date Comments Tomi Inhibitors Angioedema,Swelling 03/10/2011 Hydrochlorothiazide 03/10/2011 Other reaction(s): Question allergic reaction Medications * This document contains information received from the source organization and may not represent a complete record from that organization. naloxone (Narcan) 4 mg/0.1 mL nasal spray Administer 0.1 mL into affected nostril(s). spray 0.1 milliliter by intranasal route in 1 nostril may repeat dose every 2-3 minutes as needed alternating nostrils with each dose 04/06/20 21 Active Blood Pressure Monitor kitIndications :Hypertension, unspecified type Use to check blood pressure daily as directed 1 kit 05/30/20 23 Active albuterol 108 (90 Base) MCG/ACT inhaler Inhale 2 puffs every 4 (four) hours. 18 g 2 11/05/19 24 Active hydrALAZINE (Apresoline) 25 MG tablet Take 25 mg by mouth 3 times daily. 05/05/20 24 Active atorvastatin (Lipitor) 40 MG tablet TAKE 1 Tablet BY MOUTH EVERY MORNING 90 tablet 1 09/16/19 25 Active fluticasone (Flonase) 50 MCG/ACT nasal sprayIndicatio ns:Postnasal drip INSTILL 2 SPRAYS IN EACH NOSTRIL ONCE DAILY IN THE MORNING 48 g 1 10/16/19 25 Active cholecalcifero l (Vitamin D-3) 25 MCG (1000 UT) tabletIndicati ons:Vitamin D Deficiency Take 1 tablet (25 mcg) by mouth Once per day. 90 tablet 3 11/11/19 25 026 Active sertraline (Zoloft) 50 MG tablet TAKE 2 TABLETS BY MOUTH EVERY MORNING 60 tablet 11 11/27/19 25 Active propranolol LA (Inderal LA) 60 MG 24 hr capsule TAKE 1 CAPSULE BY MOUTH EVERY MORNING DO NOT BREAK, CRUSH, DISSOLVE OR CHEW 30 capsule 11 11/27/19 25 Active amLODIPine-brodie sartan (Exforge) 10-320 MG tablet TAKE 1 TABLET BY MOUTH EVERY MORNING 30 tablet 11 11/27/19 25 Active Aspirin Low Dose 81 MG EC tablet TAKE 1 TABLET BY MOUTH EVERY MORNING 90 tablet 1 12/09/19 25 Active Multiple Vitamin (Multivitamin) tablet TAKE 1 TABLET BY MOUTH EVERY EVENING 90 tablet 1 12/09/19 25 Active furosemide (Lasix) 20 MG tablet TAKE 1 TABLET BY MOUTH EVERY MORNING 30 tablet 3 12/20/19 25 Active docusate sodium (Colace) 100 MG capsule TAKE 1 CAPSULE BY MOUTH TWICE DAILY IN THE MORNING AND IN THE EVENING 180 capsule 1 01/08/20 25 Active Buprenorphine HCl-Naloxone HCl (Suboxone) 8-2 MG SL filmIndication s:Uncomplicate d opioid dependence (CMS/HCC) Place 1 Film under the tongue Once per day. 28 Film 02/05/20 25 025 Active nicotine (Nicoderm, Step 3) 7 MG/24HR patchIndicatio ns:Nicotine Dependence Place 1 patch on the skin 1 (one) time each day at the same time. 30 patch 2 02/18/20 25 Active Buprenorphine HCl-Naloxone HCl (Suboxone) 8-2 MG SL filmIndication s:Uncomplicate d opioid dependence (CMS/HCC) Place 1 Film under the tongue Once per day. 28 Film 01/08/20 25 025 Discontinued(R eorder (will not trigger notification to Pharmacy)) Active Problems Problem Noted Date Diagnosed Date Mild depression 12/05/2023 Coronary artery disease invo lving [place] coronary artery of [place] heart without angina pectoris 08/21/2023 Essential tremor 05/31/2023 History of open reduction an d internal fixation (ORIF) procedure 07/13/2022 Stage 3b chronic kidney disease 09/05/2021 Mitral valve replaced 12/03/2018 Paroxysmal atrial fibrillation 12/03/2018 Overview (02/20/2023): Brief episode post MVR back in 2019 Acute bacterial endocarditis 10/18/2018 Anemia 10/18/2018 Benign prostatic hyperplasia with urinary obstru ction 10/18/2018 Memory problem 10/18/2018 Lacunar infarction 10/18/2018 Vitamin B12 deficiency 10/18/2018 Constipation 07/28/2016 Opioid dependence 06/16/2016 Assessment & Plan (11/04/2024 9:15 PM EDT): - long-term maintenance stage - overdose risk: Average (risk factors are age and chronic medical conditions) - co-prescribing of high-risk medications: none - continue current Suboxone dose - continue current recovery effort & support - review harm reduction and overdose prevention Assessment & Plan (12/04/2023 11:03 PM EDT): - long-term maintenance stage - overdose risk: Average (risk factors are age and chronic medical conditions) - co-prescribing of high-risk medications: none - continue current Suboxone dose - continue current recovery effort & support - review harm reduction and overdose prevention Assessment & Plan (11/07/2023 5:03 AM EDT): - long-term maintenance stage - overdose risk: Average (risk factors are age and chronic medical conditions) - co-prescribing of high-risk medications: none - continue current Suboxone dose - continue current recovery effort & support - review harm reduction and overdose prevention Assessment & Plan (10/10/2023 5:34 AM EST): - long-term maintenance stage - overdose risk: Average (risk factors are age and chronic medical conditions) - continue current Suboxone dose - continue current recovery effort & support - review harm reduction and overdose prevention Assessment & Plan (06/20/2023 10:01 AM EST): - long-term maintenance stage - overdose risk: Average (risk factors are age and chronic medical conditions) - continue current Suboxone dose - continue current recovery effort & support - review harm reduction and overdose prevention Assessment & Plan (12/06/2022 1:33 PM EDT): - long-term maintenance stage - continue current Suboxone dose - improve recovery support - continue education on the importance of medication adherence - improve communication - pt will be starting CDTM; our pharmacist will also be able to help patient improve adherence Assessment & Plan (09/13/2022 12:16 PM EST): - long-term maintenance stage - continue current Suboxone dose - continue current recovery support - continue education on overdose prevention and harm reduction Chronic pain syndrome 08/15/2013 Hypertension 08/21/2012 Kidney stone 08/21/2012 Smoker 08/21/2012 Erectile dysfunction 08/21/2012 Resolved Problems Problem Noted Date Diagnosed Date Resolved Date Blurring of visual image 07/13/2022 Creatinine elevation 07/13/2022 023 Adverse effect of anticoagulant 07/13/2022 07/13/2022 Overview (07/13/2022): Anticoagulated on Coumadin ( as per nextgen) Anticoagulated 07/13/2022 02/20/2023 Bacteremia 10/18/2018 05/31/2023 Encounters Date Type Department Care Team Description 02/17/2025 9:30 AM EDT Office Visit [address] [address] Harvinder Melvin MD Memory problem (Primary Dx); Smoker; Stage 3b chronic kidney disease (CMS/HCC) 02/17/2025 Travel 02/16/2025 Telephone [facility] [address] [place], [place] [phone] Radha Trejo MA CHARTPREP 02/16/2025 Telephone [facility] [address], [place] [phone] Arianne Dukes, KATHLEEN OBAT Communication 02/09/[address] [facility] [address], [place] [phone] Harvinder Melvin MD Chart Prep 02/04/2025 Refill [facility] [address] [place] [address] Karie Mondragon RN Uncomplicated opioid dependence ([facility]/HCC) 02/03/2025 Patient Outreach [facility] [address] [place] [phone] Harvinder Melvin MD Pre-visit Planning ([facility] screening unable to complete. ) 01/14/2025 9:30 AM EDT Clinical Support [facility] [address] [place] [phone] Arianne Dukes RN Uncomplicated opioid dependence (CMS/HCC) (Primary Dx) 01/14/2025 Travel 01/07/2025 Refill [facility] [address] [place] [phone] Nilesh Lazo RN Uncomplicated opioid dependence ([facility]/HCC) 01/06/2025 Refill [facility] [address] [place] [phone] Harvinder Melvin MD 12/22/2024 11:00 AM EDT Clinical Support [facility] [address] [place] [phone] Arianne Dukes RN Uncomplicated opioid dependence ([facility]/HCC) (Primary Dx) 12/22/2024 Travel 12/19/2024 Refill [facility] [address] [place] [phone] Harvinder Melvin MD 12/10/2024 Refill [facility] [address] [place] [phone] Arianne Dukes RN Uncomplicated opioid dependence ([facility]/HCC) 12/07/2024 Refill [facility] [address] [place] [phone] Harvinder Melvin MD 11/26/2024 Refill [facility] [address] [place] [phone] Harvinder Melvin MD 11/19/2024 9:45 AM EDT Telemedicine [facility] [address] [place] [phone] Arianne Dukes RN Uncomplicated opioid dependence ([facility]/HCC) 11/19/2024 Travel from Last 3 Months Immunizations Immunization Administration Dates Next Due Influenza High-dose Quadriva lent Preservative Free 05/30/2023,05/01/2022,06/09/2021,05/05 Influenza injectable quadriv alent IIV4 with preservative 06/16/2016,05/04/2015 Influenza, High Dose Seasona l, Preservative Free 05/12/2024,07/23/2019 Influenza, Split (incl. mannie [place] antigen) 08/21/2012 Moderna Covid-19 Vaccine 12+ 11/30/2021, 07/06/2021,11/04/2020,10/07 Pfizer Covid-19 Vaccine 12+ 05/12/2024, Pneumococcal Conjugate PCV 13 02/17/2016 Pneumococcal Polysaccharide PPSV23 09/17/2019, RSV Bivalent 09/20/2023 TD (adult), 2 Lf tetanus tox oid, preservative free, adsorbed 08/13/2003 Tdap 09/29/2014 Zoster, Recombinant 02/17/2020,08/14/2019 Family History Medical History Relation Name Comments No Known Problems Brother 1 Macho No Known Problems Brother 2 Kvng No Known Problems Brother 3 David Not that maria dolores villegas is aware of Anxiety disorder Daughter 1 Amy Arthritis Daughter 1 Amy Asthma Daughter 1 Amy Depression Daughter 1 Amy Fibromyalgia Daughter 1 Amy Asthma Daughter 2 Jamitza No Known Problems Father [place] No Known Problems Maternal Grandfather No Known Problems Maternal Grandmother Pa ssed away at 102-was blind Arthritis Mother Alejandria No Known Problems Paternal Grandfather No Known Problems Paternal Grandmother No Known Problems Sister 1 Radha No Known Problems Sister 2 Amy Cancer Sister 3 Lashell No Known Problems Sister 5 Cancer Son [place] Relation Name Status Comments Brother 1 Macho Alive Brother 2 Kvng Alive Brother 3 David Alive Daughter 1 Amy Alive Daughter 2 Jamitza Alive Father [place] Maternal Grandfather Maternal Grandmother Mother Alejandria Paternal Grandfather Paternal Grandmother Sister 1 Radha Alive Sister 2 Amy Alive Sister 3 Lashell Alive Sister 4 Kaben Alive Sister 5 Alive Son [place] Social History Tobacco Use Types Packs/Day Years Used Date Smoking Tobacco: Former Cigarettes 2 64.6 S tarted: 07/02/1960 Smokeless Tobacco: Never Tobacco Cessation:Counseling Given: Not Answered Alcohol Use Standard Drinks/Week Comments Never 0 (1 standard drink = 0.6 oz pure alcohol) (Previous Alcoholic) Started drinking alcohol at 8-9 years old for approx 40 years and stopped approx 20 years ago Depression Answer Date Recorded Patient Health Questionnaire-9 Score 1 07/02/2024 Patient Health Questionnaire-9 Score 1 07/02/2024 Last PHQ-9: Questionnaire Data Not on file 1 09/01/2023 Housing Stability Answer Date Recorded What is your housing situation today? I have emerald leal 05/30/[address] you li ve. Do you have problems with any of the following? None of the above 05/30/2023 Food Insecurity Answer Date Recorded Within the past 12 months, y ou worried that your food would run out before you got money to buy more: Never True 2023 Within the past 12 months,th e food you bought just didn't last and you didn't have enough money to get more: Sometimes True 07/02/2024 Transportation Answer Date Recorded In the past 12 months, has l ack of transportation kept you from medical appts, meetings, work or from getting things needed for daily living? No 05/30/2023 Utilities Answer Date Recorded In the past 12 months, has t he electric, gas, oil or water company threatened to shut off services in your home? No 05/30/2023 Depression Answer Date Recorded Patient Health Questionnaire-2 Score 0 07/02/2024 Internet Access Answer Date Recorded Internet Access Q1 No 07/02/2024 Internet Access Q2 I do not want or need it 06/14 Sex and Gender Information Value Date Recorded Sex Assigned at Male 06/12/2022 10:15 AM EDT Legal Sex Male 10:15 AM EDT Gender Identity Male 06/12/2022 10:15 AM EDT Sexual Orientation Straight 06/12/2022 10 :15 AM EDT Last Filed Vital Signs Vital Sign Reading Time Taken Comments Blood Pressure 110/64 02/17/2025 9:51 AM EDT Pulse 67 02/17/2025 9:51 AM EDT Temperature 36.4 C (97.5 F) 02/17/2025 9:51 AM EDT Respiratory Rate 18 02/17/2025 9:51 AM EDT Oxygen Saturation 94% 11/03/2024 1:31 PM EDT Inhaled Oxygen Concentration - - Weight 50.2 kg (110 lb 9.6 oz) 02/17/2025 9:51 A M EDT Height 167.6 cm (5' 6 ) 02/17/2025 9:51 AM EDT Body Mass Index 17.85 02/17/2025 9:51 AM EDT Plan of Treatment Upcoming Encounters Date Type Department Care Team (Late st Contact Info) Description 02/18/2025 11:30 AM EDT Office Visit [address] [address] Letha Luna MD [address] [place] [phone] 03/11/2025 9:30 AM EDT Clinical Support [address] [address] Karie Mondragon RN 05/21/2025 9:00 AM EDT Office Visit [address] [phone] Name, MD Harvinder [address] [place] [phone] Health Maintenance Due Date Last Done Comments DTaP/Tdap/Td Vaccines (2 - Td or Tdap) 09/29/2024 09/29/2014, 08/13/2003 COVID-19 Vaccine ( season) 2024 05/12/2024, 11/12/2023, 11/30/2021, Additional history exists Influenza Vaccine (#1) 2025 , 05/30/2023, 05/01/2022, Additional history exists Alcohol/Substance Use Screening 07/02/2025 07/02/2024 Depression Screening 07/02/2025 07/02/2024, 07/02/20 24 SDOH Screening 07/02/2025 07/02/2024 Tobacco Screening 02/17/2026 02/17/2025 Lipid Panel 09/12/2028 09/12/2023, 05/30/2022 Pneumococcal Vaccine: 50+ Years Completed 09/17/2019, 02/17/2016, 01/15/2000 Zoster Vaccines Completed 02/17/2020, 08/14/2019 RSV Patients and Patients Aged 60 years or older Completed 09/20/2023 Hepatitis C Screening Completed 11/03/2024, 024 HIB Vaccines Aged Out No longer eligi ble based on patient's age to complete this topic HPV Vaccines Aged Out No longer eligi ble based on patient's age to complete this topic Hepatitis A Vaccines Aged Out No long er eligible based on patient's age to complete this topic Hepatitis B Vaccines Aged Out No long er eligible based on patient's age to complete this topic IPV Vaccines Aged Out No longer eligi ble based on patient's age to complete this topic Meningococcal B Vaccine Aged Out No l onger eligible based on patient's age to complete this topic Meningococcal Vaccine Aged Out No artur madeleine eligible based on patient's age to complete this topic RSV under 20 months Aged Out No longe r eligible based on patient's age to complete this topic Rotavirus Vaccines Aged Out No longer eligible based on patient's age to complete this topic Goals Goal Patient Goal Type Associated Problems Recent Progress Patient-Stated? Author Record your blood pressure once per day Blood Pressure No Puia, Christina, PharmD Blood Pressure < 140/90 Blood Pressure 110/64(2024 9:51 AM EDT) No Tucker, Christina, PharmD Increase coping skills to promote long-term recovery and improve ability to perform daily activities General On track( 025 11:47 AM EDT) No Arianne Dukes, packing room inspector Procedure Name Priority Date/Time Associated Diagnosis Comments POCT NEIL-14 URINE DRUG SCREEN Routine 01/14/2025 10:20 AM EDT Uncomplicated opioid dependence (CMS/HCC) POCT NEIL-14 URINE DRUG SCREEN Routine 12/22/2024 11:23 AM EDT Uncomplicated opioid dependence (CMS/HCC) HEPATITIS C AB W/REFL TO HCV RNA, QN, PCR Routine 11/03/2024 2:01 PM EDT Weight loss Anemia, unspecified type LIPID PANEL, STANDARD Routine 09/12/2023 10:29 AM EST Coronary artery disease involving [place] coronary artery of [place] heart without angina pectoris from Last 3 Months or Most Recently Relevant to Health Maintenance Results * POCT NEIL-14 Urine Drug Screen (01/14/2025 10:20 AM EDT) Only the most recent of2 resultswithin the time period is included. THC Negative Cocaine Screen, Urine Negative Opiate Screen, Urine Negative Methamphetamine Screen Urine Negative Amphetamine Screen, Urine Negative Benzodiazepines Screen, Urine Negative Barbiturate Screen, Urine Negative Methadone Screen, Urine Negative Buprenophine Screen, Urine Positive TCA, Urine Negative MDMA Urine Negative ng/mL Oxycodone Screen, Urine Negative Phencyclidine (PCP), Urine Negative Fentanyl, Urine Negative Urine Urine specimen obtained by clean catch procedure / Unknown 01/14/2025 10:20 AM EDT Letha Luna MD POINT OF CARE TEST ENTER/EDIT OR DERABLES Final Result * Hepatitis C Antibody with Reflex to HCV, RNA, Quantitative, Real-Time PCR (11/03/2024 2:01 PM EDT) Pathologist [facility] Hepatitis C Antibody Nonreactive Nonreactive [facility] Comment:Antibodies to HCV no t detected; does not exclude early acuteHCV infection. Blood Venous blood specimen / Unknown 11/03/2024 2:01 PM EDT 11/03/2024 4:02 PM EDT Harvinder Melvin MD LAB BLOOD ORDERABLES Final Resul t [facility] [address] [place] [phone] * (ABNORMAL) Lipid Panel, Standard (09/12/2023 10:29 AM EST) Triglycerides 87 <150 mg/dL [facility] Comment:Desirable Triglyceri de: less than 150 mg/dLBorderline High Triglyceride 150-199 mg/dLHigh Triglyceride: 200-499 mg/dLVery High Triglyceride: greater than or equal to 5OO mg/dL Cholesterol 154 <200 mg/dL [facility] Comment:Desirable Cholestero l: less than 200 mg/dLBorderline High Cholesterol: 200-239 mg/dLHigh Cholesterol: greater than 239 mg/dL LDL Cholesterol Calculated 104(H) <100 mg/dL [facility] Comment:Desirable LDL: less than 100 mg/dLNear Optimal/Above Optimal LDL: 110- 129 mg/dLBorderline High LDL: 130-159 mg/dLHigh LDL: 160-189 mg/dLVery High LDL: greater than or equal to 190 mg/dL HDL Cholesterol 33(L) >40 mg/dL [facility] Comment:Desirable HDL: great er than 40 mg/dL Note: This HDL assay may give artificially low results in patients with liver disease. Blood Venous blood specimen / Unknown 09/12/2023 10:29 AM EST 09/12/2023 11:51 AM EST us Harvinder Name LAB BLOOD ORDERABLES Final Resul t [facility] [address] [place] [phone] from Last 3 Months or Most Recently Relevant to Health Maintenance Insurance [facility] STANDARD MEDICARE Care Teams Sexual Assault Counselor Relationship Specialty Start Date End Date Name, MD Harvinder [address] [place] [address] PCP - General Family Medicine 11/17/15 Laz Smith MD [address] [place] [address] Cardiology 12/10/18 Letha Luna MD [address] [place] [address] Referring Physician Alcohol and Drug Specialist 07/05/16
--- OUTSIDE RECORDS SUMMARY | 2025-02-17 11:16 | XMS_ITS | Clinical Summary ---
Author Organization [facility] [address] [facility] Address [address] [facility] [place] [address] Phone Care Team Providers Care Athletic Director Name Role Phone Name, Harvinder CLAROS Primary Care Provider [phone] Allergies No known active allergies Medications amLODIPine-vals anson (EXFORGE) 10-320 mg per tablet Take 1 Tablet by mouth daily. Active aspirin 81 mg EC tablet TAKE 1 TABLET BY MOUTH EVERY MORNING 10/26/2022 Active atorvastatin (LIPITOR) 40 mg tablet Take 1 Tablet by mouth daily. Active buprenorphine-n aloxone (SUBOXONE) 8-2 mg per SL film Place under the tongue daily. Active docusate sodium (COLACE) 100 mg capsule Take 100 mg by mouth 2 times daily. Active folic acid (FOLVITE) 1 mg tablet Take 1 mg by mouth daily. Active furosemide (LASIX) 20 mg tablet TAKE 1 TABLET BY MOUTH EVERY MORNING 02/16/2023 Active hydrALAZINE (APRESOLINE) 25 mg tablet Take 2 Tablets by mouth 3 times daily. 03/05/2024 Active losartan (COZAAR) 50 mg tablet Take 1 Tablet by mouth daily. Active propranolol LA (INDERAL LA) 60 mg 24 hr capsule Take 1 Tablet by mouth every morning. Active Active Problems Problem Noted Date Diagnosed Date A-fib (CMS/HCC V24, CMS/HCC V28) 06/25/2023 Assessment & Plan (10/06/2024 3:18 PM EST): Denies perception of recurrence of arrhythmia. Status post left atrial appendage closure as outlined above. Will update monitor to further evaluate for recurrence. Continue propranolol Orders: ECG 12 lead Cardiac event monitor; Future CAD (coronary artery disease) 06/25/2023 Assessment & Plan (10/06/2024 3:18 PM EST): Denies any anginal symptoms at this time. He will continue on his current medications including aspirin, statin and beta-chula. Orders: Lipid panel with reflex to direct LDL; Future Essential hypertension 11/15/2020 Overview (10/03/2024): Last Assessment & Plan: BP reasonably well controlled. Follow on current regimen with BB, CCB, and VIKTORIA- I. Assessment & Plan (10/06/2024 3:18 PM EST): Acceptable during today's exam with a reading of 130/60. Continue his current dose of amlodipine/valsartan, hydralazine, losartan and Lasix. Educated on the importance of diet lifestyle to help further assist in reducing blood pressure. The patient was encouraged to follow low-salt low-fat diet, make purposeful strides towards weight loss, and engage in routine aerobic exercise as tolerated. Social History Tobacco Use Types Packs/Day Years Used Date Smoking Tobacco: Former Smokeless Tobacco: Never Alcohol Use Standard Drinks/Week Comments Not Currently 0 (1 standard drink = 0.6 oz pur e alcohol) Sex and Gender Information Value Date Recorded Sex Assigned at Not on file Legal Sex Male 4:34 AM EST Gender Identity Not on file Sexual Orientation Not on file Obstetrics History Last Filed Vital Signs Vital Sign Reading Time Taken Comments Blood Pressure 130/60 10/06/2024 9:34 AM EST Pulse 61 10/06/2024 9:34 AM EST Temperature - - Respiratory Rate - - Oxygen Saturation 95% 10/06/2024 9:34 AM EST Inhaled Oxygen Concentration - - Weight 49.9 kg (110 lb) 10/06/2024 9:34 AM EST Height 167.6 cm (5' 6 ) 10/06/2024 9:34 AM EST Body Mass Index 17.75 10/06/2024 9:34 AM EST Plan of Treatment Upcoming Encounters Date Type Department Care Team (Late st Contact Info) Description 04/21/2025 1:00 PM EDT Office Visit [facility] - [facility] [address] [facility] [address] [place] [phone] Laz Smith MD [address] [facility] [address] [place] [address] Health Maintenance Due Date Last Done Comments Hepatitis A Vaccines (1 of 2 - Risk 2-dose series) 1964 Falls Risk Assessment 07/16/2022 Medicare Annual Wellness Visit 07/16/2022 Social Influencers of Health Screening 07/16/2022 DTaP,Tdap,and Td Vaccines (3 - Td or Tdap) 09/29/2024 09/29/2014, 08/13/2003 COVID-19 Vaccine (2023- season) 2024 05/12/2024, 11/12/2023, 11/30/2021, Additional history exists Hypertension/CHF/CAD Annual BMP Blood Test 02/04/2025 02/05/2024, 02/05/2024 Influenza Vaccine (#1) 2025 , 05/30/2023, 05/01/2022, Additional history exists Depression Screening 07/02/2025 07/02/2024 Cholesterol Screening (Lipid Panel) 09/12/2028 09/12/2023 Pneumococcal Vaccine: 50+ Years Completed 09/17/2019, 02/17/2016, 01/15/2000 Zoster Vaccines Completed 02/17/2020, 08/14/2019 RSV Immunization Adult Patients Completed 09/20/2023 Hepatitis C Screening Completed 07/02/2024 HIB Vaccines Aged Out No longer eligi [...] on patient's age to complete this topic MMR Vaccines Aged Out No longer eligi ble based on patient's age to complete this topic Meningococcal ACWY Vaccine Aged Out N o longer eligible based on patient's age to complete this topic Meningococcal B Vaccine Aged Out No l onger eligible based on patient's age to complete this topic RSV Immunization Patients Under 20 months Aged Out No longer eligible based on patient's age to complete this topic Varicella Vaccines Aged Out No longer eligible based on patient's age to complete this topic Procedures Procedure Name Priority Date/Time Associated Diagnosis Comments ANNUAL BMP BLOOD TEST Routine 02/05/2024 from Last 3 Months or Most Recently Relevant to Health Maintenance Results * Annual BMP Blood Test (02/05/2024) Annual BMP Blood Test abstracted Historical Provider HEALTH MAINTENANCE Final Result from Last 3 Months or Most Recently Relevant to Health Maintenance Insurance MEDICARE MEDICAID - [place] Advance Directives Documents on File Type Date Recorded Patient [employer] Professional Expl anation Health Care Decision (hx) 08/15/2020 AD CANTRELL DIRECTIVE Health Care Decision (hx) 08/15/2020 AD CANTRELL DIRECTIVE Health Care Decision (hx) 08/15/2020 AD CANTRELL DIRECTIVE Health Care Decision (hx) 08/15/2020 AD CANTRELL DIRECTIVE Care Teams Athletic Director Relationship Specialty Start Date End Date Name, MD Harvinder [address] [place] [address] PCP - General 10/27/18
[2025-02-17 12:23] LABS: MANUAL DIFF FLAG NO
[2025-02-17 12:28] LABS: Hematocrit 35.6 % (42.0-52.0); Hemoglobin 11.3 g/dl (14.0-18.0); Imm Gran Abs Auto 0.02 X10*3/uL (0.00-0.03); Imm Gran Pct Auto 0.3 % (0.0-0.4); Lymphocytes Absolute Auto 2.7 X10*3/uL (1.2-4.9); Mean Corpuscular HGB Conc 31.7 g/dl (31.0-36.0); Mean Corpuscular Hemoglobin 29.4 pg (27.0-33.0); Mean Corpuscular Volume 92.5 fL (80.0-98.0); NRBC Abs Auto 0.000 X10*3/uL (0.0-0.012); NRBC Pct Auto 0.0 /100WBC (0.0-0.2); Platelet Count 211 X10*3/uL (160-400); Red Blood Count 3.85 X10*6/uL (4.60-5.80); White Blood Count 7.6 X10*3/uL (4.8-10.8)
[2025-02-17 12:52] LABS: Microalbum/Creatinine Ratio Ur 6.6 ug/mg cr (<30)
[2025-02-17 12:54] LABS: Anion Gap 12 (12-20); Blood Urea Nitrogen 21 mg/dL (9-16); Calcium 9.1 mg/dL (8.4-10.2); Carbon Dioxide 28 mmol/L (22-29); Chloride 101 mmol/L (96-108); Estimated Glomerular Filt Rate 31; Potassium 4.2 mmol/L (3.3-5.1); Sodium 137 mmol/L (135-145)
== END 2025-02-17 10:24 | disposition home or self-care (01) ==
LOC: HO.HHCL 10:23
PROVIDERS: PCP Internal Medicine Geriatric Medicine; Visit Provider Internal Medicine Geriatric Medicine
DX: N18.32 Chronic kidney disease, stage 3b (principal)
CPT/HCPCS: 36415; 80048; 82043; 82570; 85025

== ENCOUNTER 2025-03-27 14:49 | Outpatient (AMB) | payer MEDICARE, MEDICAID, SELFPAY ==
--- OUTSIDE RECORDS SUMMARY | 2025-03-27 14:52 | XMS_ITS | Clinical Summary ---
Author Organization [facility] Address [address] [facility] [place] [address] Phone Care Team Providers Care Inspector Multifocal Lens Name Role Phone Name, Harvinder CLAROS Primary Care Provider [phone] Allergies No known active allergies Medications amLODIPine-valsar arteaga (EXFORGE) 10-320 mg per tablet Take 1 Tablet by mouth daily. Active aspirin 81 mg EC tablet TAKE 1 TABLET BY MOUTH EVERY MORNING 3 Active atorvastatin (LIPITOR) 40 mg tablet Take 1 Tablet by mouth daily. Active buprenorphine-nal oxone (SUBOXONE) 8-2 mg per SL film Place under the tongue daily. Active docusate sodium (COLACE) 100 mg capsule Take 100 mg by mouth 2 times daily. Active folic acid (FOLVITE) 1 mg tablet Take 1 mg by mouth daily. Active furosemide (LASIX) 20 mg tablet TAKE 1 TABLET BY MOUTH EVERY MORNING 3 Active losartan (COZAAR) 50 mg tablet Take 1 Tablet by mouth daily. Active propranolol LA (INDERAL LA) 60 mg 24 hr capsule Take 1 Tablet by mouth every morning. Active hydrALAZINE (APRESOLINE) 25 mg tabletIndications :Essential (primary) hypertension Take 2 tablets by mouth 3 times a day 504 tablet 1 5 Active Active Problems Problem Noted Date Diagnosed [...] Description 04/21/2025 1:00 PM EDT Office Visit [facility] - [facility] [address] [facility] 154 [place] [phone] Laz Smith MD 300 [facility] 154 [place] [address] Health Maintenance Due Date Last Done Comments Hepatitis A Vaccines (1 of 2 - Risk 2-dose series) 1964 Falls Risk Assessment 07/16/2022 Medicare Annual Wellness Visit 07/16/2022 Social Influencers of Health Screening 07/16/2022 Depression Screening 08/13/2024 DTaP,Tdap,and Td Vaccines (3 - Td or Tdap) 09/29/2024 09/29/2014, 08/13/2003 COVID-19 Vaccine ( season) 2024 05/12/2024, 11/12/2023, 11/30/2021, Additional history exists Hypertension/CHF/CAD Annual BMP Blood Test 02/04/2025 02/05/2024, 02/05/2024 Influenza Vaccine (#1) 2025 , 05/30/2023, 05/01/2022, Additional history exists Cholesterol Screening (Lipid Panel) 09/12/2028 09/12/2023 Pneumococcal [...] Test (02/05/2024) Annual BMP Blood Test abstracted us Historical Provider HEALTH MAINTENANCE Final Result from Last 3 Months or Most Recently Relevant to Health Maintenance Insurance [place]ICARE [place] - [place] Advance Directives Documents on File Type Date Recorded 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
--- OUTSIDE RECORDS SUMMARY | 2025-03-27 14:52 | XMS_ITS | Clinical Summary ---
Author Organization [facility] Address [address] [address] Care Team Providers Care Barge Pilot Name Role Phone Luis Perdomo MD Primary Care Provider [phone] Allergies Active Allergy Reactions Criticality Noted Date [...] Medicaid [place] Care Teams Barge Pilot Relationship Specialty Start Date End Date Luis Perdomo MD PCP - General Nephrology 09/05/21
--- OUTSIDE RECORDS SUMMARY | 2025-03-27 14:52 | XMS_ITS | Clinical Summary ---
Author Organization [employer] Address [address] [facility] 7[address] [place] [address] Care Team Providers Care Travel Trailer Components Assembler Name Role Phone Name, Harvinder CLAROS Primary Care Provider [phone] Laz Smith MD Unavailable [phone] Letha Luna MD Unavailable Allergies Active Allergy [...] BREAK, CRUSH, DISSOLVE OR CHEW 30 capsule 11/27/19 25 Active amLODIPine-brodie sartan (Exforge) 10-320 [...] EVENING 180 capsule 1 01/08/20 25 Active nicotine (Nicoderm, Step 3) 7 MG/24HR patchIndicatio ns:Nicotine Dependence Place 1 patch on the skin 1 (one) time each day at the same time. 30 patch 2 02/18/20 25 Active empagliflozin (Jardiance) 10 MGIndications: Stage 3b chronic kidney disease (CMS/HCC) Take 1 tablet (10 mg) by mouth Once per day. 30 tablet 02/20/20 25 026 Active Buprenorphine HCl-Naloxone HCl (Suboxone) 8-2 MG SL filmIndication s:Uncomplicate d opioid dependence (CMS/HCC) Place 1 Film under the tongue Once per day. 28 Film 03/12/20 25 025 Active Buprenorphine HCl-Naloxone HCl (Suboxone) 8-2 MG SL filmIndication s:Uncomplicate d opioid dependence (CMS/HCC) Place 1 Film under the tongue Once per day. 28 Film 02/05/20 25 025 Discontinued(R eorder (will not trigger notification to Pharmacy)) Active Problems Problem Noted Date Diagnosed Date Mild depression 12/05/2023 Coronary artery disease invo lving [place] coronary artery of [place] heart without angina pectoris 08/21/2023 Essential tremor [...] 07/28/2016 Opioid dependence 06/16/2016 Assessment & Plan (03/25/2025 10:28 AM EDT): - long-term maintenance stage - overdose risk: Average (risk factors are age and chronic medical conditions) - co-prescribing of high-risk medications: none - continue current Suboxone dose - continue current recovery effort & support - review harm reduction and overdose prevention Assessment & Plan (02/18/2025 5:57 AM EDT): - long-term maintenance stage - overdose risk: Average (risk factors are age and chronic medical conditions) - co-prescribing of high-risk medications: none - continue current Suboxone dose - continue current recovery effort & support - review harm reduction and overdose prevention Assessment & Plan (11/04/2024 9:15 PM EDT): [...] Encounters Date Type Department Care Team Description 03/25/2025 9:15 AM EDT Telemedicine [facility] [place] [address] Letha Luna MD Uncomplicated opioid dependence (CMS/HCC) (Primary Dx) 03/25/2025 Travel 03/12/2025 Refill [facility] [place] [address] Karie Mondragon RN Uncomplicated opioid dependence (CMS/HCC) 02/24/2025 [address] [place] [place] [address] Karie Mondragon RN 02/19/2025 Results Follow-Up [address] [place] [address] Harvinder Melvin MD Basic Metabolic Panel, CBC auto differential, Albumin, Random Urine W/Creatinine 02/18/2025 11:30 AM EDT Office Visit [facility] [address] Letha Luna MD Uncomplicated opioid dependence (CMS/HCC) (Primary Dx) 02/18/2025 Travel 02/17/2025 9:30 AM EDT Office Visit [facility] [place] [address] Harvinder Melvin MD Memory problem (Primary Dx); Weight loss; History of falling; Stage 3b chronic kidney disease (CMS/HCC); Smoker 02/17/2025 Travel 02/16/[address] [address] Radha Trejo [place] CHARTPREP 02/16/[address] [address] Arianne Dukes, KATHLEEN OBAT Communication 02/09/[address] [address] Harvinder Melvin MD Chart Prep 02/04/[address] [address] Karie Mondragon RN Uncomplicated opioid dependence (CMS/HCC) 02/03/2025 Patient Outreach [facility] [address] [place] [phone] Harvinder Melvin MD Pre-visit Planning ([facility] screening unable to complete. ) 01/14/2025 9:30 AM EDT Clinical Support [address] [address] Arianne Dukes, KATHLEEN Uncomplicated opioid dependence ([facility]) (Primary Dx) 01/14/2025 Travel 01/07/[address] [address] Nilesh Lazo RN Uncomplicated opioid dependence ([facility]/HCC) 01/06/[address] [address] Harvinder Melvin MD from Last 3 Months Immunizations Immunization Administration [...] Known Problems Brother 3 David Not that d bakari is aware of Anxiety disorder Daughter 1 Amy Arthritis Daughter 1 Amy Asthma Daughter 1 Amy Depression Daughter 1 Amy Fibromyalgia Daughter 1 Amy Asthma Daughter 2 Jamitza No Known Problems Father [place] Citizen No Known Problems Maternal Grandfather No Known Problems Maternal Grandmother Pa ssed away at 102-was blind Arthritis Mother Alemathewdrankush No Known Problems Paternal Grandfather No Known Problems Paternal Grandmother No Known Problems Sister 1 Radha No Known Problems Sister 2 Amy Cancer Sister 3 Lashell No Known Problems Sister 5 Cancer Son [place] Citizen Relation Name Status Comments Brother 1 Macho Alive Brother 2 Kvng Alive Brother 3 David Alive Daughter 1 Amy Alive Daughter 2 Jamitza Alive Father [place] Citizen Maternal Grandfather Maternal Grandmother Mother Lisa Paternal Grandfather Paternal Grandmother Sister 1 Radha Alive Sister 2 Amy Alive Sister 3 Lashell Alive Sister 4 Kaben Alive Sister 5 Alive Son [place] Citizen Social History Tobacco Use Types Packs/Day Years Used Date Smoking Tobacco: Former Cigarettes 2 64.7 S tarted: 07/02/1960 Smokeless Tobacco: Never Tobacco [...] is your housing situation today? I have emeraldrowena leal 05/30/[address] you [...] Care Team (Late st Contact Info) Description 04/15/2025 10:45 AM EDT Clinical Support [facility] [address] [place] [phone] Arianne Dukes, KATHLEEN [address] [place] [phone] 05/21/2025 9:00 AM EDT Office Visit [facility] [address] [place] [phone] Name, MD Harvinder [address] [place] [phone] Health Maintenance Due Date Last Done Comments DTaP/Tdap/Td Vaccines (2 - Td or Tdap) 09/29/2024 09/29/2014, 08/13/2003 COVID-19 Vaccine ( season) 2024 05/12/2024, 11/12/2023, 11/30/2021, Additional history exists Influenza Vaccine (#1) 2025 , 05/30/2023, 05/01/2022, Additional history exists Alcohol/Substance Use Screening 07/02/2025 07/02/2024 Depression Screening 07/02/2025 07/02/2024, 07/02/20 SDOH Screening 07/02/2025 07/02/2024 Tobacco Screening 03/25/2026 03/25/2025 Lipid Panel 09/12/2028 09/12/2023, 05/30/2022 Pneumococcal Vaccine: [...] pressure once per day Blood Pressure No Christina Ceballos, PharmD Blood Pressure < 140/90 Blood Pressure 110/64(2024 9:51 AM EDT) No Christina Ceballos PharmD Increase coping skills to promote long-term recovery and improve ability to perform daily activities General On track( 025 11:47 AM EDT) No Arianne Dukes, personal lines account executive Procedure Name Priority Date/Time Associated Diagnosis Comments ALBUMIN, RANDOM URINE W/CREATININE Routine 02/17/2025 10:30 AM EDT Stage 3b chronic kidney disease (CMS/HCC) CBC WITH AUTO DIFFERENTIAL Routine 02/17/2025 10:30 AM EDT Stage 3b chronic kidney disease (CMS/HCC) BASIC METABOLIC PANEL Routine 02/17/2025 10:30 AM EDT Stage 3b chronic kidney disease (CMS/HCC) POCT NEIL-14 URINE DRUG SCREEN Routine 01/14/2025 10:20 AM EDT Uncomplicated opioid dependence (CMS/HCC) HEPATITIS C AB W/REFL TO HCV RNA, QN, PCR Routine 11/03/2024 2:01 PM EDT Weight loss Anemia, unspecified type LIPID PANEL, STANDARD Routine 09/12/2023 10:29 AM EST Coronary artery disease involving [place] coronary artery of [place] heart without angina pectoris from Last 3 Months or Most Recently Relevant to Health Maintenance Results * Albumin, Random Urine W/Creatinine (02/17/2025 10:30 AM EDT) Creatinine, Urine 196.68 mg/dL [facility] Microalbumin Urine 13.0 mg/L [facility] Microalbum Creatinine Ratio Ur 6.6 <30 ug/mg cr [facility] Comment:Albumin/Creatinine R atio Reference Ranges: Normal: < 30 ug/mg creatinine Microalbuminuria: 30 - 300 ug/mg creatinineClinical Albuminuria: > 300 ug/mg creatinine Urine (Urine, Random) 02/17/2025 10:30 AM EDT 02/17/2025 12:14 PM EDT us Harvinder Melvin MD LAB URINE ORDERABLES Final Resul t [facility] [address] [place] [phone] * (ABNORMAL) CBC auto differential (02/17/2025 10:30 AM EDT) White Blood Count 7.6 4.8 - 10.8 X10*3/uL [facility] Red Blood Count 3.85(L) 4.60 - 5.80 X10*6/uL [facility] Hemoglobin 11.3(L) 14.0 - 18.0 g/dl [facility] Hematocrit 35.6(L) 42.0 - 52.0 % [facility] Mean Corpuscular Volume 92.5 80.0 - 98.0 fL [facility] Mean Corpuscular Hemoglobin 29.4 27.0 - 33.0 pg [facility] Mean Corpuscular HGB Conc 31.7 31.0 - 36.0 g/dl [facility] Red Cell Distribution Width 13.0 11.0 - 16.0 % [facility] Platelet Count 211 160 - 400 X10*3/uL [facility] Mean Platelet Volume 11.3 9.4 - 12.4 fL [facility] Neutrophils Percent Auto 54.0 45 - 73 % [facility] Imm Gran Pct Auto 0.3 0.0 - 0.4 % [facility] Lymphocytes Percent Auto 35.3 20 - 40 % [facility] Monocytes Percent Auto 7.4 2 - 11 % [facility] Eosinophils Percent Auto 1.4 0 - 4 % [facility] Basophils Percent Auto 1.6 0 - 2 % [facility] NRBC Pct Auto 0.0 0.0 - 0.2 /100WBC [facility] Neutrophils Absolute Auto 4.1 2.0 - 8.3 x10*3/uL [facility] Imm Gran Abs Auto 0.02 0.00 - 0.03 X10*3/uL [facility] Lymphocytes Absolute Auto 2.7 1.2 - 4.9 X10*3/uL [facility] Monocytes Absolute Auto 0.6 0.1 - 1.2 X10*3/uL [facility] Eosinophils Absolute Auto 0.1 0.0 - 0.4 X10*3/uL [facility] Basophils Absolute Auto 0.1 0.0 - 0.2 X10*3/uL [facility] NRBC Abs Auto 0.000 0.0 - 0.012 X10*3/uL [facility] Blood Venous blood specimen / Unknown 02/17/2025 10:30 AM EDT 02/17/2025 12:18 PM EDT us Harvinder Melvin MD LAB BLOOD ORDERABLES Final Resul t Performing Organization Address City/[facility]/ZIP Co de Phone Number [facility] [address] [place] [address] [phone] * (ABNORMAL) Basic Metabolic Panel (02/17/2025 10:30 AM EDT) Sodium 137 135 - 145 mmol/L [facility] Potassium 4.2 3.3 - 5.1 mmol/L [facility] Chloride 101 96 - 108 mmol/L [facility] Carbon Dioxide 28 22 - 29 mmol/L [facility] Anion Gap 12 12 - 20 [facility] Urea Nitrogen (BUN) 21(H) 9 - 16 mg/dL [facility] Creatinine, Serum 2.11(H) 0.5 - 1.4 mg/dL [facility] Estimated Glomerular Filt Rate 31 [facility] Comment:Chronic Kidney Disea se: Estimated GFR < 60 mL/min/1.79q5Ddqerw Kidney Disease: Estimated GFR < 15 mL/min/1.73m2 Glucose 95 60 - 115 mg/dL [facility] Calcium 9.1 8.4 - 10.2 mg/dL [facility] Blood Venous blood specimen / Unknown 02/17/2025 10:30 AM EDT 02/17/2025 12:16 PM EDT us Harvinder Melvin MD LAB BLOOD ORDERABLES Final Resul t [facility] [address] [place] [phone] [phone] * POCT NEIL-14 Urine Drug Screen (01/14/2025 10:20 AM EDT) Pathologist [facility] THC Negative Cocaine Screen, Urine Negative Opiate [...] Real-Time PCR (11/03/2024 2:01 PM EDT) Pathologist [facility] Hepatitis C Antibody Nonreactive Nonreactive [facility] Comment:Antibodies to HCV no t detected; does not exclude early acuteHCV infection. Blood Venous blood specimen / Unknown 11/03/2024 2:01 PM EDT 11/03/2024 4:02 PM EDT Harvinder Melvin MD LAB BLOOD ORDERABLES Final Resul t [facility] [address] [place] [phone] [phone] * (ABNORMAL) Lipid Panel, Standard (09/12/2023 10:29 AM EST) Pathologist [facility] Triglycerides 87 <150 mg/dL [facility] Comment:Desirable Triglyceri de: less than 150 mg/dLBorderline High Triglyceride 150-199 mg/dLHigh Triglyceride: 200-499 mg/dLVery High Triglyceride: greater than or equal to 5OO mg/dL Cholesterol 154 <200 mg/dL [facility] Comment:Desirable Cholestero l: less than 200 mg/dLBorderline High Cholesterol: 200-239 mg/dLHigh Cholesterol: greater than 239 mg/dL LDL Cholesterol Calculated 104(H) <100 mg/dL [facility] Comment:Desirable LDL: less than 100 mg/dLNear Optimal/Above Optimal LDL: 110- 129 mg/dLBorderline High LDL: 130-159 mg/dLHigh LDL: 160-189 mg/dLVery High LDL: greater than or equal to 190 mg/dL HDL Cholesterol 33(L) >40 mg/dL [facility] Comment:Desirable HDL: great er than 40 mg/dL Note: This HDL assay may give artificially low results in patients with liver disease. Blood Venous blood specimen / Unknown 09/12/2023 10:29 AM EST 09/12/2023 11:51 AM EST us Harvinder Name LAB BLOOD ORDERABLES Final Resul t [facility] [address] [place] [phone] from Last 3 Months or Most Recently Relevant to Health Maintenance Insurance [facility] STANDARD MEDICARE Care Teams Travel Trailer Components Assembler Relationship Specialty Start Date End Date Name, MD [place] [address] PCP - General Family Medicine 11/17/15 [place] [address] Cardiology 12/10/18 Leth[place] [address] Referring Physician Alcohol and Drug Specialist 07/05/16
--- NOTE | 2025-03-27 15:11 | HO.NEPHOV ---
Vital Signs 03/27/25 15:12 Height 5 ft 6 in Weight 110 lb BMI 17.8 BP 100/32 L Blood Pressure Location Lt brachial Position Sitting Pulse 63 Pulse Source Pulse Oximeter Pulse Oximetry (%) 97 Intake Visit Reasons: ENP: CKD STG 3-# not in service Ssis Ssrs Developer Required: No Ssis Ssrs Developer Services: Ssis Ssrs Developer Offered & Declined Ssis Ssrs Developer Name: Daughter will translate Accompanied by: Daughter Allergies enalapril (ENALAPRIL) Allergy (Severe, Verified 03/27/25 15:15) Angioedema hydrochlorothiazide Allergy (Severe, Verified 03/27/25 15:15) Angioedema trish inhibitors Allergy (Severe, Uncoded 06/12/24 13:27) Angioedema HPI Comments Details: The patient is a 79-year-old male presenting with decreased kidney function. Chronic kidney disease has been present for years, with a recent decline to 31% kidney function. No prior nephrology consultation. Essential hypertension is managed with medication, but recent low blood pressure led to dosage adjustment. Early dementia is noted. Former smoker, now quit. Reports fatigue and low fluid intake. MEDICAL HISTORY: - Chronic Kidney Disease - Essential Hypertension - Early Dementia MEDICATIONS: - Amlodipine/Valsartan 10/320 mg for hypertension, reduced to 5/160 mg due to low blood pressure SOCIAL HISTORY: - Former smoker, currently abstinent - Reports low fluid intake, advised to increase water consumption DIAGNOSTIC RESULTS: - Labs: Kidney function at 31% [facility] Medical History (Updated 03/27/25 @ 15:20 by Dick Garcia MD) Chronic kidney disease, stage 3b Epidermal inclusion cyst Opioid dependence PAF (paroxysmal atrial fibrillation) History of transesophageal echocardiography (RUDDY) History of endocarditis BPH (benign prostatic hyperplasia) HTN (hypertension) Hx of shortness of breath Hx: UTI (urinary tract infection) Erectile dysfunction Constipation Chronic low back pain Surgical History History of excision of epidermal inclusion cyst (~05/29/24) History of back surgery Hx of cardiac catheterization Hx of mitral valve replacement Social History Patient Tobacco Use Status: Former Tobacco user Tobacco use type: Cigarette Years Smoked: 50 Physical Exam Vital Signs: Last Vital Signs Pulse 63 03/27/25 15:12 BP 100/32 L 08/15/25 15:12 Pulse Ox 97 03/27/25 15:12 BMI result Body Mass Index 17.8 Const General: comfortable Nutritional Appearance: well nourished Orientation/consciousness: patient oriented x3 HEENT Head: No normal to inspection Mouth: moist mucous membranes Neck Neck: Yes supple and Yes no JVD Resp Auscultation: clear to auscultation bilaterally and no rales Cardio Jugular venous distension: no JVD Palpation: no palpable S3 and no palpable S4 Heart sounds: no rubs GI Palpation (GI): Soft to palpation and nontender Percussion: No Fluid wave present General: Yes no CVA tenderness Back/Spine/Pelvis Back: no CVA tenderness Skin General skin exam: no rashes or lesions noted Neuro General: patient oriented x3 Extrem General: Yes no pedal edema and No clubbing Results Reviewed Nephrology Results: Hgb, (14.0-18.0) 11.3 g/dl L 02/17/25 WBC, (4.8-10.8) 7.6 X10*3/uL 02/17/25 Plt Count, (160-400) 211 X10*3/uL 02/17/25 Sodium, (135-145) 137 mmol/L 02/17/25 Potassium, (3.3-5.1) 4.2 mmol/L 02/17/25 Chloride, (96-108) 101 mmol/L 02/17/25 Carbon Dioxide, (22-29) 28 mmol/L 02/17/25 BUN, (9-16) 21 mg/dL H 02/17/25 Creatinine, (0.5-1.4) 2.11 mg/dL H 02/17/25 Calcium, (8.4-10.2) 9.1 mg/dL Δ 02/17/25 Urine Creatinine 196.68 mg/dL 02/17/25 Assessment & Plan Assessment & Plan (1) KEDAR (acute kidney injury): Code(s): N17.9 - Acute kidney failure, unspecified Category: Medical Plan KEDAR superimposed on CKD. KEDAR may be due to hypoperfusion. Obstruction should be ruled out. Other less likely causes include glomerular nephritis/interstitial disease. We will rule that out. For now since the blood pressure is low, I will decrease amlodipine/valsartan 10/320 down to 5/160 Workup as outlined below. Returned to clinic in the next few weeks Orders: Orders Creatinine Urine 3 Weeks N17.9 - Acute kidney failure, unspecified Comprehensive Met. Panel 3 Weeks N17.9 - Acute kidney failure, unspecified Complete Blood Count Auto Diff 3 Weeks N17.9 - Acute kidney failure, unspecified US renal BI 03/27/25 N17.9 - Acute kidney failure, unspecified UA and rflx microscopic 3 Weeks N17.9 - Acute kidney failure, unspecified Total Protein Urine Random 3 Weeks N17.9 - Acute kidney failure, unspecified Medications: New amlodipine-valsartan 5-160 mg 1 tab PO DAILY 30 tabs 1RF Coding Level of Care Code New Pt Level 4 (82563) Diagnoses KEDAR (acute kidney injury) N17.9
[2025-03-27 15:12] VITALS: BP 100/32; PULSE 63; O2SAT 97; BMI 17.8
== END 2025-03-27 15:33 | disposition home or self-care (01) ==
LOC: HO.HKA 14:50
PROVIDERS: PCP Internal Medicine Geriatric Medicine; Visit Provider Internal Medicine Hypertension Specialist
DX: N17.9 Acute kidney failure, unspecified (principal)
CPT/HCPCS: 99204

== ENCOUNTER → 2025-03-27 14:49 | Outpatient (BNVA) | payer MEDICARE, MEDICAID, SELFPAY | PROVIDERS: PCP Internal Medicine Geriatric Medicine; Visit Provider Internal Medicine Hypertension Specialist | DX: N17.9 Acute kidney failure, unspecified (principal) | CPT/HCPCS: 99202 ==

== ENCOUNTER 2025-04-15 13:11 | Outpatient (REF) | payer MEDICARE, MEDICAID, SELFPAY ==
--- OUTSIDE RECORDS SUMMARY | 2025-04-15 10:45 | XMS_ITS | Encounter Summary ---
Author Organization [employer] Address [address] [facility] 7t [place] [address] Care Team Providers Care Ceo And Founder Name Role Phone Name, Harvinder CLAROS Primary Care Provider [phone] Laz Smith MD Unavailable [phone] Letha Luna MD Unavailable Reason for Visit * Reason Comments OBAT F/U Encounter Details Date Type Department Care Team (Latest Contact Info) Description 04/15/2025 10:45 AM EDT Clinical Support [facility] [address] [place] [address] Arianne Dukes, RN [address] [place] [address] Uncomplicated opioid dependence (CMS/HCC) (Primary Dx) Social [...] the past 12 months, has t he [employer], gas, oil or water [employer] threatened to shut off services in your [...] 11/03/25 Behavioral health - sees Radha BILLY TECHNICAL SERVICES REPRESENTATIVE reviewed by provider. Last PCP visit: 02/17/25 [...] Today 04/15/25 Mouthswab collected, unable to urinate Macanese seen today for follow up for opioid use disorder. Reports he often does not need his whole Rx and has been cutting his films. He would like to taper down in the future. Today he would like to picker / packer 8/2 mg Rx but will cue 4/1 [...] Description 05/13/2025 10:15 AM EDT Clinical Support [facility] [address] [place] [phone] Arianne Dukes RN [address] [place] [phone] 05/21/2025 9:00 AM EDT Office Visit [facility] [address] [place] [phone] Name, MD Harvinder [address] [place] [address] Scheduled Orders Name Type Priority Associated Diagnoses Orde r Schedule Drug Toxicology Monitoring Base Panel, w/Confirmation, Oral Fluid Lab Routine Uncomplicated opioid dependence (CMS/[facility]) Ordered: 04/15/2025 documented as of this encounter [...] documented as of this encounter Care Teams Ceo And Founder Relationship Specialty Start Date End Date Name, MD Harvinder [address] [place] [phone] PCP - General Family Medicine 11/17/15 Laz Smith MD [address] [place] [address] Cardiology 12/10/18 Letha Luna MD [address] [place] [address] Referring Physician Alcohol and Drug Specialist 07/05/16 documented as of this encounter
--- OUTSIDE RECORDS SUMMARY | 2025-04-15 15:29 | XMS_ITS | Encounter Summary ---
Author Organization [employer] Address [address] [facility] 7t [place] [address] Care Team Providers Care Performance Makeup Artist Name Role Phone Name, Harvinder CLAROS Primary Care Provider [phone] Aubrey Evans MD Unavailable [phone] Laz Smith MD Unavailable [phone] Letha Luna MD Unavailable Reason for Visit * Reason Comments Med Refill Encounter Details Date Type Department Care Team (Late st Contact Info) Description 01/16/2024 Refill [facility] [address] [place], [place] [phone] Name, MD Harvinder [address] [place], [place] [phone] Social History Tobacco Use Types Packs/Day Years Used Date Smoking Tobacco: Never Smokeless Tobacco: Never Alcohol Use Standard Drinks/Week Comments Never 0 (1 standard drink = 0.6 oz pur e alcohol) Depression Answer Date Recorded Patient Health Questionnaire-9 Score 6 01/10/2024 Patient Health Questionnaire-9 Score 6 01/10/2024 Last PHQ-9: Questionnaire Data Not on file 0 01/10/2024 Housing Stability Answer Date Recorded What is [...] got money to buy more: Never True 05/30/2023 Within the past 12 months,th e food you bought just didn't last and you didn't have enough money to get more: Never True Transportation Answer Date Recorded In the past [...] Answer Date Recorded Patient Health Questionnaire-2 Score 2 01/10/2024 Sex and Gender Information Value Date Recorded Sex Assigned at Male 06/12/2022 10:15 AM EDT Legal Sex Male 10:15 AM EDT Gender Identity Male 06/12/2022 10:15 AM EDT Sexual Orientation Straight 06/12/2022 10 :15 AM EDT documented as of this encounter Plan of Treatment Upcoming Encounters Date Type Department Care Team (Late st Contact Info) Description 05/13/2025 10:15 AM EDT Clinical Support [facility] [address] [place] [phone] Arianne Dukes, KATHLEEN [address] [place] [address] 05/21/2025 9:00 AM EDT Office Visit [facility] [address] [place] [phone] NameHarvinder MD [address] [place] [address] documented as of this encounter Goals Goal Patient Goal Type Associated Problems Recent Progress Patient-Stated? Author Record your blood pressure once per day Blood Pressure No Puia, Christina, PharmD Blood Pressure < 140/90 Blood Pressure 110/64( 025 9:51 AM EDT) No Puia, Christina, PharmD documented as of this encounter Visit Diagnoses Not on filedocumented in this encounter Additional Health Concerns Assessment Noted Time PHQ-9 Depression Total Score: 6 01/10/20 24 9:13 AM EDT documented as of this encounter Care Teams Performance Makeup Artist Relationship Specialty Start Date End Date NameHarvinder MD [address] [place] [phone] PCP - General Family Medicine 11/17/15 Aubrey Evans MD [address] [place] [address] General Surgery 05/29/24 06/12/24 Laz Smith MD [address] [place] [address] [place] [address] Cardiology 12/10/18 Letha Luna MD [address] [place] [address] Referring Physician Alcohol and Drug Specialist 07/05/16 documented as of this encounter
--- OUTSIDE RECORDS SUMMARY | 2025-04-15 15:29 | XMS_ITS | Encounter Summary ---
Author Organization [employer] Address [address] [facility] [address] [place] [address] Care Team Providers Care Freight Solicitor Name Role Phone Name, Harvinder CLAROS Primary Care Provider [phone] Aubrey Evans MD Unavailable [phone] Laz Smith MD Unavailable [phone] Letha Luna MD Unavailable Reason for Visit * Reason Comments Med Refill Encounter Details Date Type Department Care Team (Late st Contact Info) Description 01/23/2024 Refill [facility] [address] [place], [place] [phone] Letha Luna MD [address] [place] [address] Uncomplicated opioid dependence (CMS/HCC) Social History Tobacco Use Types Packs/Day Years [...] Description 05/13/2025 10:15 AM EDT Clinical Support [facility] [address] [place] [address] Arianne Dukes, RN [address] [place] [phone] 05/21/2025 9:00 AM EDT Office Visit [facility] [address] [place] [phone] Harvinder Melvin MD [address] [place] [phone] documented as of this encounter Goals Goal Patient Goal Type Associated Problems Recent Progress Patient-Stated? Author Record your blood pressure once per day Blood Pressure No Puia, Christina, PharmD Blood Pressure < 140/90 Blood Pressure 110/64( 025 9:51 AM EDT) No Puia, Christina, PharmD documented as of this encounter Visit Diagnoses Diagnosis Uncomplicated opioid dependence (CMS/HCC) documented in this encounter Additional Health Concerns Assessment Noted Time PHQ-9 Depression Total Score: 6 01/10/20 24 9:13 AM EDT documented as of this encounter Care Teams Freight Solicitor Relationship Specialty Start Date End Date Harvinder Melvin MD [address] [place] [address] PCP - General Family Medicine 11/17/15 Aubrey Evans MD [address] [place] [address] General Surgery 05/29/24 06/12/24 Laz Smith MD [address] [place] [phone] Cardiology 12/10/18 Letha Luna MD [address] [place] [address] Referring Physician Alcohol and Drug Specialist 07/05/16 documented as of this encounter
--- OUTSIDE RECORDS SUMMARY | 2025-04-15 15:29 | XMS_ITS | Clinical Summary ---
Author Organization [employer] Address [address] [facility] 7t [place] [address] Care Team Providers Care Mattress Weaver Name Role Phone Name, Harvinder CLAROS Primary Care Provider [phone] Laz Smith MD Unavailable Letha Luna MD Unavailable Allergies Active Allergy [...] 1 Film under the tongue Once per day for 28 days. 28 Film 04/08/20 25 025 Active Buprenorphine HCl-Naloxone HCl (Suboxone) 8-2 MG SL filmIndication s:Uncomplicate d opioid dependence (CMS/HCC) Place 1 Film under the tongue Once per day. 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 08/21/2023 Essential tremor [...] Encounters Date Type Department Care Team Description 04/15/2025 10:45 AM EDT Clinical Support [facility] [place] [address] Arianne Dukes RN Uncomplicated opioid dependence (CMS/HCC) (Primary Dx) 04/15/2025 Travel 04/08/2025 Refill [facility] [place] [address] Arianne Dukes RN Uncomplicated opioid dependence (CMS/HCC) 03/25/2025 9:15 AM EDT Telemedicine [facility] [place] [address] Letha Luna MD Uncomplicated opioid dependence (CMS/HCC) (Primary Dx) 03/25/2025 Travel 03/12/2025 Refill [facility] [place] [address] Karie Mondragon RN Uncomplicated opioid dependence (CMS/HCC) 02/24/2025 Telephone [facility] [place] [address] Karie Mondragon RN 02/19/2025 Results Follow-Up [facility] [place] [address] Harvinder Melvin MD Basic Metabolic Panel, CBC auto differential, Albumin, Random Urine W/Creatinine 02/18/2025 11:30 AM EDT Office Visit [facility] [place] [address] Letha Luna MD Uncomplicated opioid dependence (CMS/HCC) (Primary Dx) 02/18/2025 Travel 02/17/2025 9:30 AM EDT Office Visit [facility] [place] [address] Harvinder Melvin MD Memory problem (Primary Dx); Weight loss; History of falling; Stage 3b chronic kidney disease (CMS/HCC); Smoker 02/17/2025 Travel 02/16/2025 Telephone [facility] [place] [address] Radha Trejo MA CHARTPREP 02/16/[address] [address] Arianne Dukes, KATHLEEN OBAT Communication 02/09/[address] [address] Harvinder Melvin MD Chart Prep 02/04/[address] [address] Karie Mondragon RN Uncomplicated opioid dependence (CMS/HCC) 02/03/2025 Patient Outreach [address] [address] Harvinder Melvin MD Pre-visit Planning (SDOH screening unable to complete. ) 01/14/2025 9:30 AM EDT Clinical Support [address] [address] Arianne Dukes RN Uncomplicated opioid dependence ([facility]/HCC) (Primary Dx) 01/14/2025 Travel from Last 3 Months Immunizations Immunization Administration Dates Next Due Influenza High-dose Quadriva lent Preservative Free 05/30/2023,05/01/2022,06/09/2021,05/05 Influenza injectable quadriv alent IIV4 with preservative 06/16/2016,05/04/2015 Influenza, High Dose Seasona l, Preservative Free 05/12/2024,07/23/2019 Influenza, Split (incl. mannie fied surface antigen) 08/21/2012 Moderna Covid-19 Vaccine 12+ 11/30/2021, 07/06/2021,11/04/2020,10/07 Pfizer Covid-19 Vaccine 12+ 05/12/2024, 4 Pneumococcal Conjugate PCV 13 02/17/2016 Pneumococcal Polysaccharide [...] Daughter 2 Jamitza No Known Problems Father Icelandic No Known Problems Maternal Grandfather No Known Problems Maternal Grandmother Domingo ssed away at 102-was blind Arthritis Mother Alemathewdrankush No Known Problems Paternal Grandfather No Known Problems Paternal Grandmother No Known Problems Sister 1 Radha No Known Problems Sister 2 Amy Cancer Sister 3 Lashell No Known Problems Sister 5 Cancer Son Icelandic Relation Name Status Comments Brother 1 Macho Alive Brother 2 Kvng Alive Brother 3 David Alive Daughter 1 Amy Alive Daughter 2 Jamitza Alive Father Icelandic Maternal Grandfather Maternal Grandmother Mother Lisa Paternal Grandfather Paternal Grandmother Sister 1 Radha Alive Sister 2 Amy Alive Sister 3 Lashell Alive Sister 4 Kaben Alive Sister 5 Alive Son Icelandic Social History Tobacco Use Types Packs/Day Years Used Date Smoking Tobacco: Former Cigarettes 2 64.8 S tarted: 07/02/1960 Smokeless Tobacco: Never Tobacco [...] Description 05/13/2025 10:15 AM EDT Clinical Support [facility] [address] [place] [address] Arianne Dukes, RN [address] [place] [address] 05/21/2025 9:00 AM EDT Office Visit [facility] [address] [place] [address] Name, MD Harvinder [address] [place] [address] Health Maintenance Due Date Last Done Comments DTaP/Tdap/Td Vaccines (2 - Td or Tdap) 09/29/2024 09/29/2014, 08/13/2003 COVID-19 Vaccine ( season) 2025 05/12/2024, 11/12/2023, 11/30/2021, Additional history exists Influenza [...] this topic Meningococcal Vaccine Aged Out No atrur madeleine eligible based on patient's age to [...] Blood Pressure 110/64(2024 9:51 AM EDT) No Damienia, Christina, PharmD Increase coping skills to promote long-term recovery and improve ability to perform daily activities General On track( 025 12:14 PM EDT) No Arianne Dukes, reinforcing metal worker Procedure Name Priority Date/Time Associated Diagnosis Comments [...] 10:29 AM EST Coronary artery disease involving 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 from Last 3 Months or Most Recently Relevant to Health Maintenance Results * Albumin, Random Urine W/Creatinine (02/17/2025 10:30 AM EDT) Creatinine, Urine 196.68 mg/dL [facility] Microalbumin Urine 13.0 mg/L [facility] Microalbum Creatinine Ratio Ur 6.6 <30 ug/mg cr [facility] Comment:Albumin/Creatinine R atio Reference Ranges: Normal: < 30 ug/mg creatinine Microalbuminuria: 30 - 300 ug/mg creatinineClinical Albuminuria: > 300 ug/mg creatinine Urine (Urine, Random) 02/17/2025 10:30 AM EDT 02/17/2025 12:14 PM EDT us Harvinder Name MD LAB URINE ORDERABLES Final Resul t [facility] [address] [place], [place] [phone] * (ABNORMAL) CBC auto differential (02/17/2025 10:30 AM EDT) White Blood Count 7.6 4.8 - 10.8 X10*3/uL [facility] Red Blood Count 3.85(L) 4.60 - 5.80 X10*6/uL [facility] Hemoglobin 11.3(L) 14.0 - 18.0 g/dl [facility] Hematocrit 35.6(L) 42.0 - 52.0 % [facility] Mean Corpuscular Volume 92.5 80.0 - 98.0 fL [facility] Mean Corpuscular Hemoglobin 29.4 27.0 - 33.0 pg [facility] Mean Corpuscular HGB Conc 31.7 31.0 - 36.0 g/dl [facility] Red Cell Distribution Width 13.0 11.0 - 16.0 % [facility] Platelet Count 211 160 - 400 X10*3/uL [facility] Mean Platelet Volume 11.3 9.4 - 12.4 fL [facility] Neutrophils Percent Auto 54.0 45 - 73 % [facility] Imm Gran Pct Auto 0.3 0.0 - 0.4 % [facility] Lymphocytes Percent Auto 35.3 20 - 40 % [facility] Monocytes Percent Auto 7.4 2 - 11 % [facility] Eosinophils Percent Auto 1.4 0 - 4 % [facility] Basophils Percent Auto 1.6 0 - 2 % [facility] NRBC Pct Auto 0.0 0.0 - 0.2 /100WBC [facility] Neutrophils Absolute Auto 4.1 2.0 - 8.3 x10*3/uL [facility] Imm Gran Abs Auto 0.02 0.00 - 0.03 X10*3/uL [facility] Lymphocytes Absolute Auto 2.7 1.2 - 4.9 X10*3/uL [facility] Monocytes Absolute Auto 0.6 0.1 - 1.2 X10*3/uL [facility] Eosinophils Absolute Auto 0.1 0.0 - 0.4 X10*3/uL [facility] Basophils Absolute Auto 0.1 0.0 - 0.2 X10*3/uL [facility] NRBC Abs Auto 0.000 0.0 - 0.012 X10*3/uL [facility] Blood Venous blood specimen / Unknown 02/17/2025 10:30 AM EDT 02/17/2025 12:18 PM EDT us Harvinder Melvin MD LAB BLOOD ORDERABLES Final Resul t [facility] [address] [place] [address] [phone] * (ABNORMAL) Basic Metabolic Panel (02/17/2025 10:30 AM EDT) Sodium 137 135 - 145 mmol/L [facility] Potassium 4.2 3.3 - 5.1 mmol/L [facility] Chloride 101 96 - 108 mmol/L [facility] Carbon Dioxide 28 22 - 29 mmol/L [facility] Anion Gap 12 12 - 20 [facility] Urea Nitrogen (BUN) 21(H) 9 - 16 mg/dL [facility] Creatinine, Serum 2.11(H) 0.5 - 1.4 mg/dL [facility] Estimated Glomerular Filt Rate 31 [facility] Comment:Chronic Kidney Disea se: Estimated GFR < 60 mL/min/1.27e3Ofixfi Kidney Disease: Estimated GFR < 15 mL/min/1.73m2 Glucose 95 60 - 115 mg/dL [facility] Calcium 9.1 8.4 - 10.2 mg/dL [facility] Blood Venous blood specimen / Unknown 02/17/2025 10:30 AM EDT 02/17/2025 12:16 PM EDT us Harvinder Melvin MD LAB BLOOD ORDERABLES Final Resul t Performing Organization Address [facility] Co de Phone Number [facility] [address] [place] [phone] * POCT NEIL-14 Urine Drug Screen (01/14/2025 10:20 AM EDT) THC Negative Cocaine Screen, Urine Negative Opiate [...] PCR (11/03/2024 2:01 PM EDT) Pathologist [facility] Hepatitis C Antibody Nonreactive Nonreactive [facility] Comment:Antibodies to HCV no t detected; does not exclude early acuteHCV infection. Blood Venous blood specimen / Unknown 11/03/2024 2:01 PM EDT 11/03/2024 4:02 PM EDT us Harvinder Melvin MD LAB BLOOD ORDERABLES Final Resul t Performing Organization Address [facility] Co de Phone Number [facility] [address] [place] [phone] * (ABNORMAL) Lipid Panel, Standard (09/12/2023 10:29 AM EST) Triglycerides 87 <150 mg/dL [facility] Comment:Desirable Triglyceri de: less than 150 mg/dLBorderline High Triglyceride 150-199 mg/dLHigh Triglyceride: 200-499 mg/dLVery High Triglyceride: greater than or equal to 5OO mg/dL Cholesterol 154 <200 mg/dL [facility] Comment:Desirable Cholestero l: less than 200 mg/dLBorderline High Cholesterol: 200-239 mg/dLHigh Cholesterol: greater than 239 mg/dL LDL Cholesterol Calculated 104(H) <100 mg/dL [facility] Comment:Desirable LDL: less than 100 mg/dLNear Optimal/Above Optimal LDL: 110- 129 mg/dLBorderline High LDL: 130-159 mg/dLHigh LDL: 160-189 mg/dLVery High LDL: greater than or equal to 190 mg/dL HDL Cholesterol 33(L) >40 mg/dL [facility] Comment:Desirable HDL: great er than 40 mg/dL Note: This HDL assay may give artificially low results in patients with liver disease. Blood Venous blood specimen / Unknown 09/12/2023 10:29 AM EST 09/12/2023 11:51 AM EST us Harvinder Name LAB BLOOD ORDERABLES Final Resul t [facility] [address] [place] [phone] [phone] from Last 3 Months or Most Recently Relevant to Health Maintenance Insurance [facility] STANDARD MEDICARE Care Teams Mattress Weaver Relationship Specialty Start Date End Date Name, MD Harvinder [address] [place] [address] PCP - General Family Medicine 11/17/15 Laz Smith MD [address] [place] [address] Cardiology 12/10/18 Letha Luna MD [address] [place] [address] Referring Physician Alcohol and Drug Specialist 07/05/16
--- OUTSIDE RECORDS SUMMARY | 2025-04-15 15:29 | XMS_ITS | Clinical Summary ---
Author Organization [facility] Facility Address [address] [address] Care Team Providers Care Homicide Squad Lieutenant Name Role Phone Luis Perdomo MD Primary Care Provider [phone] Allergies Active Allergy Reactions Criticality Noted Date [...] Medicaid [place] Care Teams Homicide Squad Lieutenant Relationship Specialty Start Date End Date Luis Perdomo MD PCP - General Nephrology 09/05/21
--- OUTSIDE RECORDS SUMMARY | 2025-04-15 15:29 | XMS_ITS | Encounter Summary ---
Author Organization [employer] Address [address] [facility] [address]t [place] [address] Care Team Providers Care Human Resources Representative Name Role Phone Name, Harvinder CLAROS Primary Care Provider [phone] Aubrey Evans MD Unavailable [phone] Laz Smith MD Unavailable [phone] Letha Luna MD Unavailable Reason for Visit * Reason Comments Med Refill Encounter Details Date Type Department Care Team (Late st Contact Info) Description 06/09/2024 Refill [facility] [address] [place], [place] [phone] Name, MD Harvinder [address] [place], [place] [phone] Social History Tobacco Use Types Packs/Day Years Used Date Smoking Tobacco: Never Smokeless Tobacco: Never Alcohol Use Standard Drinks/Week Comments Never 0 (1 standard drink = 0.6 oz pur e alcohol) Depression Answer Date Recorded Patient Health Questionnaire-9 Score 3 04/29/2024 Patient Health Questionnaire-9 Score 3 04/29/2024 Last PHQ-9: Questionnaire Data Not on file 0 04/29/2024 Housing Stability Answer Date Recorded What is [...] Date Recorded Patient Health Questionnaire-2 Score 2 04/29/2024 Sex and Gender Information Value Date Recorded Sex Assigned at Male 06/12/2022 10:15 AM EDT Legal Sex Male 10:15 AM EDT Gender Identity Male 06/12/2022 10:15 AM EDT Sexual Orientation Straight 06/12/2022 10 :15 AM EDT documented as of this encounter Plan of Treatment Upcoming Encounters Date Type Department Care Team (Late st Contact Info) Description 05/13/2025 10:15 AM EDT Clinical Support [facility] [address] [place] [phone] Arianne Dukes, KATHLEEN [address] [place] [address] 05/21/2025 9:00 AM EDT Office Visit [facility] [address] [place] [phone] NameHarvinder MD [address] [place] [address] documented as of this encounter Goals Goal [...] Assessment Noted Time PHQ-9 Depression Total Score: 3 04/29/20 24 8:52 AM EDT documented as of this encounter Care Teams Human Resources Representative Relationship Specialty Start Date End Date NameHarvinder MD [address] [place] [address] PCP - General Family Medicine 11/17/15 Aubrey Evans MD [address] [place] [address] General Surgery 05/29/24 06/12/24 Laz Smith MD [address] [place] [address] [place] [address] Cardiology 12/10/18 Letha Luna MD [address] [place] [address] Referring Physician Alcohol and Drug Specialist 07/05/16 documented as of this encounter
--- OUTSIDE RECORDS SUMMARY | 2025-04-15 15:29 | XMS_ITS | Clinical Summary ---
Author Organization [facility] Address [address] [facility] [place] [address] Phone Care Team Providers Care Cold Press Operator Name Role Phone Name, Harvinder CLAROS Primary Care Provider [phone] Allergies No known active allergies Medications amLODIPine-valsar [...] Description 04/21/2025 1:00 PM EDT Office Visit [facility] [address] [facility] [address] [place] [address] Laz Smith MD [address] [place] [address] [place] [address] Health Maintenance Due Date Last Done Comments Hepatitis A Vaccines (1 of 2 - Risk 2-dose series) 1964 Falls Risk Assessment 07/16/2022 Medicare Annual Wellness Visit 07/16/2022 Social Influencers of Health Screening 07/16/2022 Depression Screening 08/13/2024 DTaP,Tdap,and Td Vaccines (3 - Td or Tdap) 09/29/2024 09/29/2014, 08/13/2003 Hypertension/CHF/CAD Annual BMP Blood Test 02/04/2025 02/05/2024, 02/05/2024 COVID-19 Vaccine ( season) 2025 05/12/2024, 11/12/2023, [...] Documents on File Type Date Recorded Patient Edm Operator Expl anation Health Care Decision (hx) 08/15/2020 AD CANTRELL DIRECTIVE Health Care Decision (hx) 08/15/2020 AD CANTRELL DIRECTIVE Health Care Decision (hx) 08/15/2020 AD CANTRELL DIRECTIVE Health Care Decision (hx) 08/15/2020 AD CANTRELL DIRECTIVE Care Teams Cold Press Operator Relationship Specialty Start Date End Date Name, MD Harvinder [address] [place] [address] PCP - General 10/27/18
--- OUTSIDE RECORDS SUMMARY | 2025-04-15 15:29 | XMS_ITS | Encounter Summary ---
Author Organization [employer] Address [address] [facility] 7t [place] [address] Care Team Providers Care Clinical Project Manager Name Role Phone Name, Harvinder CLAROS Primary Care Provider [phone] Aubrey Evans MD Unavailable [phone] Laz Smith MD Unavailable [phone] Letha Luna MD Unavailable Reason for Visit * Reason Comments Med Refill Encounter Details Date Type Department Care Team (Late st Contact Info) Description 06/09/2023 Refill [facility] [address] [place], [place] [phone] Name, MD Harvinder [address] [place], [place] [phone] Hypertension, unspecified type Social History Tobacco Use Types Packs/Day Years Used Date Smoking Tobacco: Never Smokeless Tobacco: Never Alcohol Use Standard Drinks/Week Comments Never 0 (1 standard drink = 0.6 oz pur e alcohol) Depression Answer Date Recorded Patient Health Questionnaire-9 Score 4 02/20/2023 Housing Stability Answer Date Recorded What is [...] Date Recorded Patient Health Questionnaire-2 Score 2 02/20/2023 Sex and Gender Information Value Date Recorded Sex Assigned at Male 06/12/2022 10:15 AM EDT Legal Sex Male 10:15 AM EDT Gender Identity Male 06/12/2022 10:15 AM EDT Sexual Orientation Straight 06/12/2022 10 :15 AM EDT documented as of this encounter Plan of Treatment Upcoming Encounters Date Type Department Care Team (Late st Contact Info) Description 05/13/2025 10:15 AM EDT Clinical Support [address] [address] Arianne Dukes RN [address] [place] [address] 05/21/2025 9:00 AM EDT Office Visit [address] [address] Name, MD Harvinder [address] [place] [address] documented as of this encounter Goals Goal Patient Goal Type Associated Problems Recent Progress Patient-Stated? Author Record your blood pressure once per day Blood Pressure No Puia, Christina, PharmD Blood Pressure < 140/90 Blood Pressure 110/64( 025 9:51 AM EDT) No Puia, Christina, PharmD documented as of this encounter Visit Diagnoses Diagnosis Hypertension, unspecified type documented in this encounter Additional Health Concerns Assessment Noted Time PHQ-9 Depression Total Score: 4 02/21/20 23 3:58 PM EDT documented as of this encounter Care Teams Clinical Project Manager Relationship Specialty Start Date End Date Name, MD Harvinder [address] [place] [address] PCP - General Family Medicine 11/17/15 Aubrey Evans MD [address] [place] [address] General Surgery 05/29/24 06/12/24 Laz Smith MD [address] [place] [address] Cardiology 12/10/18 Letha Luna MD [address] [place] [phone] Referring Physician Alcohol and Drug Specialist 07/05/16 documented as of this encounter
--- OUTSIDE RECORDS SUMMARY | 2025-04-15 15:29 | XMS_ITS | Encounter Summary ---
Author Organization [employer] Address [address] [facility] 7t [place] [address] Care Team Providers Care Dean Of Education Name Role Phone Name, Harvinder CLAROS Primary Care Provider [phone] Aubrey Evans MD Unavailable [phone] Laz Smith MD Unavailable [phone] Letha Luna MD Unavailable Reason for Visit * Reason Comments Med Refill Encounter Details Date Type Department Care Team (Late st Contact Info) Description 01/29/2024 Refill [facility] [address] [place], [place] [phone] Name, MD Harvinder [address] [place], [place] [phone] Social History Tobacco Use Types Packs/Day Years [...] Description 05/13/2025 10:15 AM EDT Clinical Support [facility] [address] [place] [address] Arianne Dukes, KATHLEEN [address] [place] [address] 05/21/2025 9:00 AM EDT Office Visit [facility] [address] [place] [phone] NameHarvinder MD [address] [place] [address] documented as of this encounter Goals Goal [...] documented as of this encounter Care Teams Dean Of Education Relationship Specialty Start Date End Date NameHarvinder MD [address] [place] [address] PCP - General Family Medicine 11/17/15 Aubrey Evans MD [address] [place] [address] General Surgery 05/29/24 06/12/24 Laz Smith MD [address] [place] [address] [place] [address] Cardiology 12/10/18 Letha Luna MD [address] [place] [address] Referring Physician Alcohol and Drug Specialist 07/05/16 documented as of this encounter
--- OUTSIDE RECORDS SUMMARY | 2025-04-15 15:29 | XMS_ITS | Encounter Summary ---
Author Organization [facility] [facility] Address [address] [place] [address] 7 [place] [address] Care Team Providers Care Environmental Health Specialist Name Role Phone Name, Harvinder CLAROS Primary Care Provider [phone] Aubrey Evans MD Unavailable [phone] Laz Smith MD Unavailable [phone] Letha Luna MD Unavailable Reason for Visit * Reason Comments Med Refill Encounter Details Date Type Department Care Team (Late Contact Info) Description 05/14/2023 Refill [facility] [address] [place] [address] [phone] Name, MD Harvinder [address] [place] [address] [phone] Social History Tobacco Use Types Packs/Day Years Used Date Smoking Tobacco: Never Smokeless Tobacco: Never Alcohol Use Standard Drinks/Week Comments Never 0 (1 standard drink = 0.6 oz pur e alcohol) Depression Answer Date Recorded Patient Health Questionnaire-9 Score 4 02/20/2023 Depression Answer Date Recorded Patient Health Questionnaire-2 Score 2 02/20/2023 Sex and Gender Information Value Date Recorded Sex Assigned at Male 06/12/2022 10:15 AM EDT Legal Sex Male 10:15 AM EDT Gender Identity Male 06/12/2022 10:15 AM EDT Sexual Orientation Straight 06/12/2022 10 :15 AM EDT documented as of this encounter Plan of Treatment Upcoming Encounters Date Type Department Care Team (Late Contact Info) Description 05/13/2025 10:15 AM EDT Clinical Support [facility] [address] [place] [phone] Arianne Dukes, RN [address] [place] [phone] 05/21/2025 9:00 AM EDT Office Visit [facility] [address] [place] [phone] Name, MD Harvinder [address] [place] [address] documented as of this encounter Goals Goal [...] documented as of this encounter Care Teams Environmental Health Specialist Relationship Specialty Start Date End Date Name, MD Harvinder [address] [place] [phone] PCP - General Family Medicine 11/17/15 Aubrey Evans MD [address] [place] [address] General Surgery 05/29/24 06/12/24 Laz Smith MD [address] [place] [address]39 Cardiology 12/10/18 Letha Luna MD [address] [place] [address] Referring Physician Alcohol and Drug Specialist 07/05/16 documented as of this encounter
--- OUTSIDE RECORDS SUMMARY | 2025-04-15 15:29 | XMS_ITS | Encounter Summary ---
Author Organization [employer] Address [address] [facility] 7t [place] [address] Care Team Providers Care Healthcare Administration Internship Name Role Phone Name, Harvinder CLAROS Primary Care Provider [phone] Laz Smith MD Unavailable [phone] Letha Luna MD Unavailable Reason for Visit * Reason Comments Med Refill Encounter Details Date Type Department Care Team (Late st Contact Info) Description 08/31/2024 Refill [facility] [address] [place], [place] [phone] Name, MD Harvinder [address] [place] [address] Postnasal drip Social History Tobacco Use Types Packs/Day Years [...] Description 05/13/2025 10:15 AM EDT Clinical Support [facility] [address] [place] [phone] Arianne Dukes, RN [address] [place] [phone] 05/21/2025 9:00 AM EDT Office Visit [facility] [address] [place] [phone] Name, MD Harvinder [address] [place] [address] 24[address] documented as of this encounter Goals Goal Patient Goal Type Associated Problems Recent Progress Patient-Stated? Author Record your blood pressure once per day Blood Pressure No Puia, Christina, PharmD Blood Pressure < 140/90 Blood Pressure 110/64( 025 9:51 AM EDT) No Puia, Christina, PharmD documented as of this encounter Visit Diagnoses Diagnosis Postnasal drip documented in this encounter Additional Health Concerns Assessment Noted Time PHQ-9 Depression Total Score: 1 11/20/20 24 9:46 AM EST documented as of this encounter Care Teams Healthcare Administration Internship Relationship Specialty Start Date End Date Name, [place] [address] PCP - General Family Medicine 11/17/15 [place] [address] Cardiology 12/10/18 [place] [address] Referring Physician Alcohol and Drug Specialist 07/05/16 documented as of this encounter
--- OUTSIDE RECORDS SUMMARY | 2025-04-15 15:29 | XMS_ITS | Encounter Summary ---
Author Organization [employer] Address [address] [facility] [address] 7t [place] [address] Care Team Providers Care Crew Leader/Control Room Operator Name Role Phone Name, Harvinder CLAROS Primary Care Provider [phone] Laz Smith MD Unavailable [phone] Letha Luna MD Unavailable Encounter Details Date Type Department Care Team (Latest Contact Info) Description 04/15/2025 Travel Social History Tobacco Use Types Packs/Day Years [...] Description 05/13/2025 10:15 AM EDT Clinical Support [facility] [address] [place] [phone] Arianne Dukes, RN [address] [place] [address] 15[address] 05/21/2025 9:00 AM EDT Office Visit [facility] [address] [place] [address] NameHarvinder MD [address] [place] [place] [address] documented as of this encounter Goals Goal [...] documented as of this encounter Care Teams Crew Leader/Control Room Operator Relationship Specialty Start Date End Date Harvinder [place] [address] PCP - General Family Medicine 11/17/15 [place] [address] Cardiology 12/10/18 Letha Luna MD [address] [place] [address] Referring Physician Alcohol and Drug Specialist 07/05/16 documented as of this encounter
--- OUTSIDE RECORDS SUMMARY | 2025-04-15 15:29 | XMS_ITS | Encounter Summary ---
Author Organization [facility] Address [address] [place] [address] 7 [place] [address] Care Team Providers Care Forensic Analyst Name Role Phone Name, Harvinder CLAROS Primary Care Provider Christina Ceballos PharmD Unavailable Aubrey Evans MD Unavailable Laz Smith MD Unavailable Letha Luna MD Unavailable Encounter Details Date Type Department Care Team (Late st Contact Info) Description 07/05/2022 Abstract [facility]INE [address] [place] [address] [phone] Provider, MD Jen Social History Tobacco Use Types Packs/Day Years [...] Description 05/13/2025 10:15 AM EDT Clinical Support [facility] [address] [place] [phone] Arianne Dukes RN [address] [place] [address] 05/21/2025 9:00 AM EDT Office Visit [facility] [address] [place] [address] [phone] Name, MD Harvinder [address] [place] [address] documented as of this encounter Visit Diagnoses Not on filedocumented in this encounter Care Teams Forensic Analyst Relationship Specialty Start Date End Date Name, MD Harvinder [address] [place] [address] PCP - General Family Medicine 11/17/15 Christina Ceballos PharmD [address] [place] [address]39 Pharmacist Internal Medicine 12/28/22 02/21/23 Aubrey Evans MD [address] [place] [address]331 General Surgery 05/29/24 06/12/24 Laz Smith MD [address] [place] [address] Cardiology 12/10/18 Letha Luna MD [address] [place] [address] Referring Physician Alcohol and Drug Specialist 07/05/16 documented as of this encounter
== END 2025-04-15 13:12 | disposition home or self-care (01) ==
LOC: HO.HHCLNP 13:11
PROVIDERS: Visit Provider Family Medicine
DX: F11.20 Opioid dependence, uncomplicated (principal)
CPT/HCPCS: 36415; 80307

== ENCOUNTER 2025-04-17 16:10 | Outpatient (REF) | payer MEDICARE, MEDICAID, SELFPAY ==
--- OUTSIDE RECORDS SUMMARY | 2025-04-15 10:45 | XMS_ITS | Encounter Summary ---
Author Organization [employer] Address [address] [facility] 7t [place] [address] Care Team Providers Care Ocean Export Account Manager Name Role Phone Name, Harvinder CLAROS Primary Care Provider [phone] Laz Smith MD Unavailable [phone] Letha Luna MD Unavailable Reason for Visit * Reason Comments OBAT F/U Encounter Details Date Type Department Care Team (Latest Contact Info) Description 04/15/2025 10:45 AM EDT Clinical Support [facility] [address] [place] [address] Arianne Dukes, RN [address] [place] [address] Uncomplicated opioid dependence (CMS/HCC) (Primary Dx) Social History Tobacco Use Types Packs/Day Years Used Date Smoking Tobacco: Former Cigarettes 2 64.8 S tarted: 07/02/1960 Smokeless Tobacco: Never Alcohol Use Standard Drinks/Week Comments Never 0 [...] the past 12 months, has t he [employer], gas, oil or water [employer] threatened to shut off services in your [...] Orientation Straight 06/12/2022 10 :15 AM EDT documented as of this encounter Progress Notes * Arianne Dukes, KATHLEEN - 04/15/2025 10:45 AM EDT Samuel Escudero is a 79 y.o. male who presents for OBAT RV Patient on current Suboxone dose of 8/2 mg on a 4 week schedule. Pt has been in the program for 8 years, 9 months. Induction date: 07/05/16. LFTs due 11/03/25 Behavioral health - sees Radha BILLY CONDUCTOR YARD reviewed by provider. Last PCP visit: 02/17/25 Oral health: Edentulous. Discussed about oral health. 09/13/22. Last visit: Patient states he is feeling cold, which he attributes it to AC. He states he has not eaten breakfast yet, but has appetite. He states his daughter usually prepares meals for him. He states he will come to an in-person appointment on 04/15/25. Today 04/15/25 Mouthswab collected, unable to urinate Cypriot seen today for follow up for opioid use disorder. Reports he often does not need his whole Rx and has been cutting his films. He would like to taper down in the future. Today he would like to clam picker 8/2 mg Rx but will cue 4/1 mg for next time. Plan: Suboxone dosing schedule of 8/2 mg daily and management of side effects reviewed. Recovery support,harm reduction (including Narcan), and behavioral health attendance reviewed. Appointment for 4 weeks. Patient expressed understanding and agreement with continuing plan of care. This information has been disclosed to you from records protected by federal confidentiality rules (42 CFR Part 2). The federal rules prohibit you from making any further disclosure of information inthis record that identifies a patient as having or having had a substance use disorder either directly, by reference to publicly available information, or through verification of such identification by another person unless further disclosure is expressly permitted by the written consent of the individual whose information is being disclosed or as otherwise permitted by (see2.3.1). The federal rules restrict any use of the information to investigate or prosecute with regard to a crime any patient with a substance use disorder, except as provided at 2.12??(5) and 2.65. documented in this encounter Plan of Treatment Upcoming Encounters Date Type Department Care Team (Late st Contact Info) Description 05/13/2025 10:15 AM EDT Clinical Support [facility] [address] [place] [phone] Arianne Dukes RN [address] [place] [phone] 05/21/2025 9:00 AM EDT Office Visit [facility] [address] [place] [phone] Name, MD Harvinder [address] [place] [phone] Scheduled Orders Name Type Priority Associated Diagnoses Orde r Schedule Drug Toxicology Monitoring Base Panel, w/Confirmation, Oral Fluid Lab Routine Uncomplicated opioid dependence (CMS/[facility]) Ordered: 04/15/2025 documented as of this encounter Goals Goal Patient Goal Type Associated Problems Recent Progress Patient-Stated? Author Record your blood pressure once per day Blood Pressure No Christina Ceballos, PharmD Blood Pressure < 140/90 Blood Pressure 110/64(2024 9:51 AM EDT) No Christina Ceballos, PharmD Increase coping skills to promote long-term recovery and improve ability to perform daily activities General On track( 025 12:14 PM EDT) No Arianne Dukes, RN documented as of this encounter Visit Diagnoses Diagnosis Uncomplicated opioid dependence (CMS/HCC)- Primary documented in this encounter Additional Health Concerns Assessment Noted Time PHQ-9 Depression Total Score: 1 07/02/20 24 9:46 AM EST documented as of this encounter Care Teams Ocean Export Account Manager Relationship Specialty Start Date End Date Name, MD Harvinder [address] [place] [phone] PCP - General Family Medicine 11/17/15 Laz Smith MD [address] [place] [phone] Cardiology 12/10/18 Letha Luna MD [address] [place] [phone] Referring Physician Alcohol and Drug Specialist 07/05/16 documented as of this encounter
--- OUTSIDE RECORDS SUMMARY | 2025-04-17 16:12 | XMS_ITS | Clinical Summary ---
Author Organization [facility] Address [address] [address] Care Team Providers Care Pick Up Name Role Phone Luis Perdomo MD Primary Care Provider [phone] Allergies Active Allergy Reactions Criticality Noted Date [...] Medicaid [place] Care Teams Pick Up Relationship Specialty Start Date End Date Luis Perdomo MD PCP - General Nephrology 09/05/21
--- OUTSIDE RECORDS SUMMARY | 2025-04-17 16:13 | XMS_ITS | Encounter Summary ---
Author Organization [employer] Address [address] [facility] [address] 7t [place] [address] Care Team Providers Care Recruiting Assistant Name Role Phone Name, Harvinder CLAROS Primary Care Provider [phone] Laz Smith MD Unavailable [phone] Letha Luna MD Unavailable Encounter Details Date [...] Description 05/13/2025 10:15 AM EDT Clinical Support [facility] [address] [place] [address] Arianne Dukes, RN [address] [place] [address] 05/21/2025 9:00 AM EDT Office Visit [facility] [address] [place] [address] NameHarvinder MD [address] [place] [address] 132[address] documented as of this encounter Goals Goal [...] documented as of this encounter Care Teams Recruiting Assistant Relationship Specialty Start Date End Date Har[place] [address] PCP - General Family Medicine 11/17/15 [place] [address] Cardiology 12/10/18 Letha Luna MD [address] [place] [address] Referring Physician Alcohol and Drug Specialist 07/05/16 documented as of this encounter
--- OUTSIDE RECORDS SUMMARY | 2025-04-17 16:13 | XMS_ITS | Encounter Summary ---
Author Organization [employer] Address [address] [facility] 7t [place] [address] Care Team Providers Care Social Organization Professor Name Role Phone Name, Harvinder CLAROS Primary Care Provider [phone] Laz Smith MD Unavailable [phone] Letha Luna MD Unavailable Reason for Visit * Reason Comments Med Refill Encounter Details Date Type Department Care Team (Late st Contact Info) Description 08/31/2024 Refill [facility] [address] [place] [address] Name, MD Harvinder [address] [place] [address] Postnasal drip Social History Tobacco Use Types [...] Description 05/13/2025 10:15 AM EDT Clinical Support [facility] MED[facility]INE [address] [place] [address] Arianne Dukes, RN [address] [place] [address] 05/21/2025 9:00 AM EDT Office Visit [facility] [address] [place] [address] 0[address] Name, MD Harvinder [address] [place] [address] 124[address] documented as of this encounter Goals Goal [...] documented as of this encounter Care Teams Social Organization Professor Relationship Specialty Start Date End Date Name, MD [place] [address] PCP - General Family Medicine 11/17/15 Laz [place] [address] Cardiology 12/10/18 Letha [place] [address] Referring Physician Alcohol and Drug Specialist 07/05/16 documented as of this encounter
--- OUTSIDE RECORDS SUMMARY | 2025-04-17 16:13 | XMS_ITS | Clinical Summary ---
Author Organization [employer] Address [address] [facility] 7t [place] [address] Care Team Providers Care Candy Department Manager Name Role Phone Name, Harvinder CLAROS Primary Care Provider [phone] Laz Smith MD Unavailable [phone] Letha Luna MD Unavailable Allergies Active Allergy [...] depression 12/05/2023 Coronary artery disease invo lving [place] coronary artery of [place] heart without angina pectoris 08/21/2023 Essential tremor [...] Description 04/15/2025 10:45 AM EDT Clinical Support [facility] [place] [address] Arianne Dukes RN Uncomplicated opioid dependence (CMS/HCC) (Primary Dx) 04/15/2025 Travel 04/08/2025 Refill [facility] [place] [address] Arianne Dukes RN Uncomplicated opioid dependence (CMS/HCC) 03/25/2025 9:15 AM EDT Telemedicine [facility] [place] [address] Letha Luna MD Uncomplicated opioid dependence (CMS/HCC) (Primary Dx) 03/25/2025 Travel 03/12/2025 Refill [facility] [place] [address] Karie Mondragon RN Uncomplicated opioid dependence (CMS/HCC) 02/24/2025 Telephone [facility] [place] [address] Karie Mondragon RN 02/19/2025 Results Follow-Up [facility] [place] [address] Harvinder Melvin MD Basic Metabolic Panel, CBC auto differential, Albumin, Random Urine W/Creatinine 02/18/2025 11:30 AM EDT Office Visit [facility] [place] [address] Letha Luna MD Uncomplicated opioid dependence (CMS/HCC) (Primary Dx) 02/18/2025 Travel 02/17/2025 9:30 AM EDT Office Visit [facility] [place] [address] Harvinder Melvin MD Memory problem (Primary Dx); Weight loss; History of falling; Stage 3b chronic kidney disease (CMS/HCC); Smoker 02/17/2025 Travel 02/16/2025 Telephone [facility] [place] [address] Radha Trejo MA CHARTPREP 02/16/2025 [address] [place] [address] Arianne Dukes, KATHLEEN OBAT Communication 02/09/[address] [address] Harvinder Melvin MD Chart Prep 02/04/[address] [address] Karie Mondragon RN Uncomplicated opioid dependence ([facility]) 02/03/2025 Patient Outreach [address] [address] Harvinder Melvin MD Pre-visit Planning ([facility] screening unable to complete. ) from Last 3 Months Immunizations Immunization Administration [...] Daughter 2 Jamitza No Known Problems Father Pakistani No Known Problems Maternal Grandfather No Known Problems Maternal Grandmother Domingo ssed away at 102-was blind Arthritis Mother Alejandria No Known Problems Paternal Grandfather No Known Problems Paternal Grandmother No Known Problems Sister 1 Radha No Known Problems Sister 2 Amy Cancer Sister 3 Lashell No Known Problems Sister 5 Cancer Son Pakistani Relation Name Status Comments Brother 1 Macho Alive Brother 2 Kvng Alive Brother 3 David Alive Daughter 1 Amy Alive Daughter 2 Jamitza Alive Father Pakistani Maternal Grandfather Maternal Grandmother Mother Lisa Paternal Grandfather Paternal Grandmother Sister 1 Radha Alive Sister 2 Amy Alive Sister 3 Lashell Alive Sister 4 Kaben Alive Sister 5 Alive Son Pakistani Social History Tobacco Use Types Packs/Day Years [...] Description 05/13/2025 10:15 AM EDT Clinical Support [address] [address] Arianne Dukes, RN [address] [place] [address] 05/21/2025 9:00 AM EDT Office Visit [address] [address] Name, MD Harvinder [address] [place] [address] Health Maintenance Due Date Last Done Comments [...] 025 12:14 PM EDT) No Arianne Dukes, manager balance Procedure Name Priority Date/Time Associated Diagnosis Comments ALBUMIN, RANDOM URINE W/CREATININE Routine 02/17/2025 10:30 AM EDT Stage 3b chronic kidney disease (CMS/HCC) CBC WITH AUTO DIFFERENTIAL Routine 02/17/2025 10:30 AM EDT Stage 3b chronic kidney disease (CMS/HCC) BASIC METABOLIC PANEL Routine 02/17/2025 10:30 AM EDT Stage 3b chronic kidney disease (CMS/HCC) HEPATITIS C AB W/REFL TO HCV RNA, QN, PCR Routine 11/03/2024 2:01 PM EDT Weight loss Anemia, unspecified type LIPID PANEL, STANDARD Routine 09/12/2023 10:29 AM EST Coronary artery disease involving [place] coronary artery of [place] heart without angina pectoris from Last 3 Months or Most Recently Relevant to Health Maintenance Results * Albumin, Random Urine W/Creatinine (02/17/2025 10:30 AM EDT) Creatinine, Urine 196.68 mg/dL [facility] Microalbumin Urine 13.0 mg/L [facility] Microalbum Creatinine Ratio Ur 6.6 <30 ug/mg cr [facility] Comment:Albumin/Creatinine R atio Reference Ranges: Normal: < 30 ug/mg creatinine Microalbuminuria: 30 - 300 ug/mg creatinineClinical Albuminuria: > 300 ug/mg creatinine Urine (Urine, Random) 02/17/2025 10:30 AM EDT 02/17/2025 12:14 PM EDT us Harvinder Name LAB URINE ORDERABLES Final Resul t [facility] [address] [place] [phone] * (ABNORMAL) CBC auto differential (02/17/2025 10:30 AM EDT) White Blood Count 7.6 4.8 - 10.8 X10*3/uL [facility] Red Blood Count 3.85(L) 4.60 - 5.80 X10*6/uL [facility] Hemoglobin 11.3(L) 14.0 - 18.0 g/dl [facility] Hematocrit 35.6(L) 42.0 - 52.0 % [facility] Mean Corpuscular Volume 92.5 80.0 - 98.0 fL [facility] Mean Corpuscular Hemoglobin 29.4 27.0 - 33.0 pg [facility] Mean Corpuscular HGB Conc 31.7 31.0 - 36.0 g/dl [facility] Red Cell Distribution Width 13.0 11.0 - 16.0 % [facility] Platelet Count 211 160 - 400 X10*3/uL [facility] Mean Platelet Volume 11.3 9.4 - 12.4 fL [facility] Neutrophils Percent Auto 54.0 45 - 73 % [facility] Imm Gran Pct Auto 0.3 0.0 - 0.4 % [facility] Lymphocytes Percent Auto 35.3 20 - 40 % [facility] Monocytes Percent Auto 7.4 2 - 11 % [facility] Eosinophils Percent Auto 1.4 0 - 4 % [facility] Basophils Percent Auto 1.6 0 - 2 % [facility] NRBC Pct Auto 0.0 0.0 - 0.2 /100WBC [facility] Neutrophils Absolute Auto 4.1 2.0 - 8.3 x10*3/uL [facility] Imm Gran Abs Auto 0.02 0.00 - 0.03 X10*3/uL [facility] Lymphocytes Absolute Auto 2.7 1.2 - 4.9 X10*3/uL [facility] Monocytes Absolute Auto 0.6 0.1 - 1.2 X10*3/uL [facility] Eosinophils Absolute Auto 0.1 0.0 - 0.4 X10*3/uL [facility] Basophils Absolute Auto 0.1 0.0 - 0.2 X10*3/uL [facility] NRBC Abs Auto 0.000 0.0 - 0.012 X10*3/uL [facility] Blood Venous blood specimen / Unknown 02/17/2025 10:30 AM EDT 02/17/2025 12:18 PM EDT us Harvinder Melvin MD LAB BLOOD ORDERABLES Final Resul t Performing Organization Address [facility] Co de Phone Number [facility] [address] [place] [phone] * (ABNORMAL) Basic Metabolic Panel (02/17/2025 10:30 AM EDT) Sodium 137 135 - 145 mmol/L [facility] Potassium 4.2 3.3 - 5.1 mmol/L [facility] Chloride 101 96 - 108 mmol/L [facility] Carbon Dioxide 28 22 - 29 mmol/L [facility] Anion Gap 12 12 - 20 [facility] Urea Nitrogen (BUN) 21(H) 9 - 16 mg/dL [facility] Creatinine, Serum 2.11(H) 0.5 - 1.4 mg/dL [facility] Estimated Glomerular Filt Rate 31 [facility] Comment:Chronic Kidney Disea se: Estimated GFR < 60 mL/min/1.52d2Upcsoc Kidney Disease: Estimated GFR < 15 mL/min/1.73m2 Glucose 95 60 - 115 mg/dL [facility] Calcium 9.1 8.4 - 10.2 mg/dL [facility] Blood Venous blood specimen / Unknown 02/17/2025 10:30 AM EDT 02/17/2025 12:16 PM EDT us Harvinder Melvin MD LAB BLOOD ORDERABLES Final Resul t Performing Organization Address [facility] Co de Phone Number [facility] [address] [place] [phone] * Hepatitis C Antibody with Reflex to HCV, RNA, Quantitative, Real-Time PCR (11/03/2024 2:01 PM EDT) Hepatitis C Antibody Nonreactive Nonreactive [facility] Comment:Antibodies to HCV no t detected; does not exclude early acuteHCV infection. Blood Venous blood specimen / Unknown 11/03/2024 2:01 PM EDT 11/03/2024 4:02 PM EDT us Harvinder Melvin MD LAB BLOOD ORDERABLES Final Resul t Performing Organization Address [facility] de Phone Number [facility] [address] [place] [phone] * (ABNORMAL) Lipid Panel, Standard (09/12/2023 10:29 AM EST) Triglycerides 87 <150 mg/dL [facility] Comment:Desirable Triglyceri de: less than 150 mg/dLBorderline High Triglyceride 150-199 mg/dLHigh Triglyceride: 200-499 mg/dLVery High Triglyceride: greater than or equal to 5OO mg/dL Cholesterol 154 <200 mg/dL [facility] Comment:Desirable Cholestero l: less than 200 mg/dLBorderline High Cholesterol: 200-239 mg/dLHigh Cholesterol: greater than 239 mg/dL LDL Cholesterol Calculated 104(H) <100 mg/dL [facility] Comment:Desirable LDL: less than 100 mg/dLNear Optimal/Above Optimal LDL: 110- 129 mg/dLBorderline High LDL: 130-159 mg/dLHigh LDL: 160-189 mg/dLVery High LDL: greater than or equal to 190 mg/dL HDL Cholesterol 33(L) >40 mg/dL [facility] Comment:Desirable HDL: great er than 40 mg/dL Note: This HDL assay may give artificially low results in patients with liver disease. Blood Venous blood specimen / Unknown 09/12/2023 10:29 AM EST 09/12/2023 11:51 AM EST us Harvinder Melvin MD LAB BLOOD ORDERABLES Final Resul t Performing Organization Address [facility] Co de Phone Number [facility] [address] [place] [phone] from Last 3 Months or Most Recently Relevant to Health Maintenance Insurance [facility] STANDARD [place]IC[place] [id number] Care Teams Candy Department Manager Relationship Specialty Start Date End Date Name, MD Harvinder [address] [place], [place] PCP - General Family Medicine 11/17/15 Laz Smith MD [address] [place], [place] Cardiology 12/10/18 Letha Luna MD [address] [place] [address] Referring Physician Alcohol and Drug Specialist 07/05/16
--- OUTSIDE RECORDS SUMMARY | 2025-04-17 16:13 | XMS_ITS | Encounter Summary ---
Author Organization [employer] Address [address] [facility] 7t [place] [address] Care Team Providers Care Construction Project Assistant Name Role Phone Name, Harvinder CLAROS Primary Care Provider [phone] Aubrey Evans MD Unavailable [phone] Laz Smith MD Unavailable [phone] Letha Luna MD Unavailable Reason for Visit * Reason Comments Med Refill Encounter Details Date Type Department Care Team (Late st Contact Info) Description 06/09/[address] [facility] [address] [place], [place] [phone] Name, MD Harvinder [address] [place], [place] [phone] Hypertension, unspecified type Social History Tobacco Use [...] Description 05/13/2025 10:15 AM EDT Clinical Support [address] [address] Arianne Dukes RN [address] [place] [address] 05/21/2025 9:00 AM EDT Office Visit [address] [address] Name, MD Harvinder [address] [place] [address] documented as of this encounter Goals Goal [...] documented as of this encounter Care Teams Construction Project Assistant Relationship Specialty Start Date End Date Name, MD Harvinder [address] [place] [phone] PCP - General Family Medicine 11/17/15 Aubrey Evans MD [address] [place] [phone] General Surgery 05/29/24 06/12/24 Laz Smith MD [address] [place] [address] Cardiology 12/10/18 Letha Luna MD [address] [place] [address] Referring Physician Alcohol and Drug Specialist 07/05/16 documented as of this encounter
--- OUTSIDE RECORDS SUMMARY | 2025-04-17 16:13 | XMS_ITS | Encounter Summary ---
Author Organization [employer] Address 75 [facility] 7t [place] [address] Care Team Providers Care Magnetic Resonance Imaging Director Name Role Phone Name, Harvinder CLAROS Primary Care Provider [phone] Aubrey Evans MD Unavailable [phone] Laz Smith MD Unavailable [phone] Letha Luna MD Unavailable Reason for Visit * Reason Comments Med Refill Encounter Details Date Type Department Care Team (Late st Contact Info) Description 01/16/2024 Refill [facility] 230 [place], [place] [phone] Name, MD Harvinder 230 [place], [place] [phone] Social History Tobacco Use Types Packs/Day Years [...] Description 05/13/2025 10:15 AM EDT Clinical Support [facility] [address] [place] [address] 85371 Arianne Dukes, KATHLEEN [address] [place] [address] 11615 05/21/2025 9:00 AM EDT Office Visit [facility] [address] [place] [address] 22087 NameHarvinder MD [address] [place] [address] 16282 documented as of this encounter Goals Goal [...] documented as of this encounter Care Teams Magnetic Resonance Imaging Director Relationship Specialty Start Date End Date NameHarvinder MD [address] [place] [address] 34087 PCP - General Family Medicine 11/17/15 Aubrey Evans MD [address] [place] [address] General Surgery 05/29/24 06/12/24 Laz Smith MD [address] [place] [address] [place] [address] 42768 Cardiology 12/10/18 Letha Luna MD [address] [place] [address] 14031 Referring Physician Alcohol and Drug Specialist 07/05/16 documented as of this encounter
--- OUTSIDE RECORDS SUMMARY | 2025-04-17 16:13 | XMS_ITS | Encounter Summary ---
Author Organization [employer] [facility] Address [address] [place] [address] 7 [place] [address] Care Team Providers Care Medical Affairs Specialist Name Role Phone Name, Harvinder CLAROS Primary Care Provider Christina Ceballos PharmD Unavailable [phone] Aubrey Evans MD Unavailable Laz Smith MD Unavailable [phone] Letha Luna MD Unavailable Encounter Details Date Type Department Care Team (Late st Contact Info) Description 07/05/2022 Abstract [facility] [address] [place] [address] [phone] Provider, MD Jen Social History Tobacco Use [...] Description 05/13/2025 10:15 AM EDT Clinical Support [facility] [address] [place] [address] 14345 Arianne Dukes RN [address] [place] [address] 54347 05/21/2025 9:00 AM EDT Office Visit [facility] [address] [place] [address] [phone] Name, MD Harvinder [address] [place] [address] 51359 documented as of this encounter Visit Diagnoses Not on filedocumented in this encounter Care Teams Medical Affairs Specialist Relationship Specialty Start Date End Date Name, MD Harvinder [address] [place] [address] 87681 PCP - General Family Medicine 11/17/15 Christina Ceballos PharmD [address] [place] [address] 08849 Pharmacist Internal Medicine 12/28/22 02/21/23 Aubrey Evans MD [address] [place] [address] 31640 General Surgery 05/29/24 06/12/24 Laz Smith MD [address] [place] [address] 11605 Cardiology 12/10/18 Letha Luna MD [address] [place] [address] 44162 Referring Physician Alcohol and Drug Specialist 07/05/16 documented as of this encounter
--- OUTSIDE RECORDS SUMMARY | 2025-04-17 16:13 | XMS_ITS | Encounter Summary ---
Author Organization [employer] Address 75 [facility] 7t [place] [address] Care Team Providers Care Narcotics Agent Name Role Phone Name, Harvinder CLAROS Primary Care Provider [phone] Aubrey Evans MD Unavailable [phone] Laz Smith MD Unavailable [phone] Letha Luna MD Unavailable Reason for Visit * Reason Comments Med Refill Encounter Details Date Type Department Care Team (Late st Contact Info) Description 06/09/2024 Refill [facility] 230 [place], [place] [phone] Name, MD Harvinder 230 [place], [place] [phone] Social History Tobacco Use Types Packs/Day Years [...] Description 05/13/2025 10:15 AM EDT Clinical Support [facility] [address] [place] [address] 28024 Arianne Dukes, KATHLEEN [address] [place] [address] 89929 05/21/2025 9:00 AM EDT Office Visit [facility] [address] [place] [address] 24629 NameHarvidner MD [address] [place] [address] 18359 documented as of this encounter Goals Goal [...] documented as of this encounter Care Teams Narcotics Agent Relationship Specialty Start Date End Date NameHarvinder MD [address] [place] [address] 03575 PCP - General Family Medicine 11/17/15 Aubrey Evans MD [address] [place] [address] General Surgery 05/29/24 06/12/24 Laz Smith MD [address] [place] [address] [place] [address] 70277 Cardiology 12/10/18 Letha Luna MD [address] [place] [address] 49793 Referring Physician Alcohol and Drug Specialist 07/05/16 documented as of this encounter
--- OUTSIDE RECORDS SUMMARY | 2025-04-17 16:13 | XMS_ITS | Encounter Summary ---
Author Organization [employer] Address [address] [place] [address] 7 [place] [address] Care Team Providers Care Kiln Firer Name Role Phone Name, Harvinder CLAROS Primary Care Provider [phone] Aubrey Evans MD Unavailable [phone] Laz Smith MD Unavailable [phone] Letha Luna MD Unavailable Reason for Visit * Reason Comments Med Refill Encounter Details Date Type Department Care Team (Late Contact Info) Description 05/14/2023 Refill [facility] [address] [place] [address] [phone] Name, MD Harvinder [address] [place] [address] [phone] Social History Tobacco Use Types Packs/Day Years [...] Description 05/13/2025 10:15 AM EDT Clinical Support [facility] [address] [place] [address] 77626 Arianne Dukes, RN [address] [place] [address] 87568 05/21/2025 9:00 AM EDT Office Visit [facility] [address] [place] [address] 87176 Name, MD Harvinder [address] [place] [address] documented as of this encounter Goals Goal [...] documented as of this encounter Care Teams Kiln Firer Relationship Specialty Start Date End Date Name, MD Harvinder [address] [place] [address] 61151 PCP - General Family Medicine 11/17/15 Aubrey Evans MD [address] [place] [address] 10777 General Surgery 05/29/24 06/12/24 Laz Smith MD [address] [place] [address] 93611 Cardiology 12/10/18 Letha Luna MD [address] [place] [address] 49757 Referring Physician Alcohol and Drug Specialist 07/05/16 documented as of this encounter
--- OUTSIDE RECORDS SUMMARY | 2025-04-17 16:13 | XMS_ITS | Encounter Summary ---
Author Organization [employer] Address [address] [facility] 7t [place] [address] Care Team Providers Care Manager Immunology Name Role Phone Name, Harvinder CLAROS Primary Care Provider [phone] Aubrey Evans MD Unavailable [phone] Laz Smith MD Unavailable [phone] Letha Luna MD Unavailable Reason for Visit * Reason Comments Med Refill Encounter Details Date Type Department Care Team (Late st Contact Info) Description 01/23/2024 Refill [facility] 230 [place], [place] [phone] Letha Luna MD 230 [place] [address] Uncomplicated opioid dependence (CMS/HCC) Social History Tobacco [...] Description 05/13/2025 10:15 AM EDT Clinical Support [facility] [address] [place] [address] 21832 Arianne Dukes, RN [address] [place] [address] 90083 05/21/2025 9:00 AM EDT Office Visit [facility] [address] [place] [address] 41795 Harvinder Melvin MD [address] [place] [address] 14882 documented as of this encounter Goals Goal [...] documented as of this encounter Care Teams Manager Immunology Relationship Specialty Start Date End Date Harvinder Melvin MD 230 [place] [address] PCP - General Family Medicine 11/17/15 Aubrey Evans MD [address] [place] [address] 77484 General Surgery 05/29/24 06/12/24 Laz Smith MD [address] [place] [address] 94980 Cardiology 12/10/18 Letha Luna MD 230 [place] [address] Referring Physician Alcohol and Drug Specialist 07/05/16 documented as of this encounter
--- OUTSIDE RECORDS SUMMARY | 2025-04-17 16:13 | XMS_ITS | Clinical Summary ---
Author Organization [employer] Address [address] [facility] [place] [address] Phone Care Team Providers Care Manager Heart Failure Name Role Phone Name, Harvinder CLAROS Primary Care Provider [phone] Allergies No known active allergies Medications amLODIPine-valsar [...] Description 04/21/2025 1:00 PM EDT Office Visit [facility] [address] [facility] [address] [place] [address] Laz Smith MD [address] [place] [address] [place] [phone] Health Maintenance Due Date Last Done Comments [...] Documents on File Type Date Recorded Patient Qm Nurse Expl anation Health Care Decision (hx) 08/15/2020 AD CANTRELL DIRECTIVE Health Care Decision (hx) 08/15/2020 AD CANTRELL DIRECTIVE Health Care Decision (hx) 08/15/2020 AD CANTRELL DIRECTIVE Health Care Decision (hx) 08/15/2020 AD CANTRELL DIRECTIVE Care Teams Manager Heart Failure Relationship Specialty Start Date End Date Name, MD Harvinder [address] [place], [place] PCP - General 10/27/18
--- OUTSIDE RECORDS SUMMARY | 2025-04-17 16:13 | XMS_ITS | Encounter Summary ---
Author Organization [employer] Address 75 [facility] 7t [place] [address] Care Team Providers Care Wire Spring Relay Adjuster Name Role Phone Name, Harvinder CLAROS Primary Care Provider [phone] Aubrey Evans MD Unavailable [phone] Laz Smith MD Unavailable [phone] Letha Luna MD Unavailable Reason for Visit * Reason Comments Med Refill Encounter Details Date Type Department Care Team (Late st Contact Info) Description 01/29/2024 Refill [facility] 230 [place], [place] [phone] Name, MD Harvinder 230 [place], [place] [phone] Social History Tobacco Use Types Packs/Day Years [...] Description 05/13/2025 10:15 AM EDT Clinical Support [facility] [address] [place] [address] 08441 Arianne Dukes, KATHLEEN [address] [place] [address] 06877 05/21/2025 9:00 AM EDT Office Visit [facility] [address] [place] [address] 80974 NameHarvinder MD [address] [place] [address] 08372 documented as of this encounter Goals Goal [...] documented as of this encounter Care Teams Wire Spring Relay Adjuster Relationship Specialty Start Date End Date NameHarvinder MD [address] [place] [address] 12507 PCP - General Family Medicine 11/17/15 Aubrey Evans MD [address] [place] [address] General Surgery 05/29/24 06/12/24 Laz Smith MD [address] [place] [address] [place] [address] 74868 Cardiology 12/10/18 Letha Luna MD [address] [place] [address] 47795 Referring Physician Alcohol and Drug Specialist 07/05/16 documented as of this encounter
[2025-04-17 16:26] LABS: MANUAL DIFF FLAG NO
[2025-04-17 17:07] LABS: Hematocrit 33.2 % (42.0-52.0); Hemoglobin 10.7 g/dl (14.0-18.0); Imm Gran Abs Auto 0.01 X10*3/uL (0.00-0.03); Imm Gran Pct Auto 0.2 % (0.0-0.4); Lymphocytes Absolute Auto 1.9 X10*3/uL (1.2-4.9); Mean Corpuscular HGB Conc 32.2 g/dl (31.0-36.0); Mean Corpuscular Hemoglobin 30.0 pg (27.0-33.0); Mean Corpuscular Volume 93.0 fL (80.0-98.0); NRBC Abs Auto 0.000 X10*3/uL (0.0-0.012); NRBC Pct Auto 0.0 /100WBC (0.0-0.2); Platelet Count 162 X10*3/uL (160-400); Red Blood Count 3.57 X10*6/uL (4.60-5.80); White Blood Count 4.9 X10*3/uL (4.8-10.8)
[2025-04-17 18:18] LABS: Alanine Aminotransferase 13 U/L (0-40); Albumin Level 4.2 g/dL (3.5-5.0); Alkaline Phosphatase 64 U/L (39-117); Anion Gap 13 (12-20); Aspartate Amino Transferase 23 U/L (5-37); Blood Urea Nitrogen 22 mg/dL (9-16); Calcium 8.9 mg/dL (8.4-10.2); Carbon Dioxide 27 mmol/L (22-29); Chloride 102 mmol/L (96-108); Estimated Glomerular Filt Rate 42; Potassium 4.2 mmol/L (3.3-5.1); Sodium 138 mmol/L (135-145); Total Protein 7.4 g/dL (6.5-8.0)
== END 2025-04-17 16:11 | disposition home or self-care (01) ==
LOC: HO.LAB 16:10
PROVIDERS: PCP Internal Medicine Geriatric Medicine; Visit Provider Internal Medicine Hypertension Specialist
DX: N17.9 Acute kidney failure, unspecified (principal)
CPT/HCPCS: 36415; 80053; 85025

== ENCOUNTER 2025-04-23 09:08 | Outpatient (REF) | payer MEDICARE, MEDICAID, SELFPAY ==
--- NOTE | ~2025-04-23 | US_ITS ---
EXAMINATION: US RETROPERITONEAL LIMITED (RENAL ONLY) CLINICAL INFORMATION: AKF. N17.9. COMPARISON: None available. TECHNIQUE: Real-time ultrasound of the kidneys using grayscale technique. FINDINGS: RIGHT KIDNEY: 9 x 6 x 6 cm (SAG x AP x TRV). Normal echotexture. Normal renal cortical thickness. Mild pelvicalyceal ectasia. No solid or cystic lesion. LEFT KIDNEY: 9 x 4 x 3 cm (SAG x AP x TRV). Normal echotexture. Normal renal cortical thickness. No hydronephrosis. No solid or cystic lesion. There is a 4 mm hyperechoic lesion at the corticomedullary junction of the lower pole. US/US renal BI IMPRESSION: 4 mm nonobstructing calculus, left kidney. Mild pelvicalyceal ectasia, right kidney.. Electronically signed by: John Nugent MD 04/23/2025 09:48 AM EDT
--- OUTSIDE RECORDS SUMMARY | 2025-04-23 10:30 | XMS_ITS | Encounter Summary ---
Author Organization [employer] Address 75 [facility] 7t [place] [address] Care Team Providers Care Snag Grinder Name Role Phone Name, Harvinder CLAROS Primary Care Provider [phone] Aubrey Evans MD Unavailable [phone] Laz Smith MD Unavailable [phone] Letha Luna MD Unavailable Reason for Visit * Reason Comments Med Refill Encounter Details Date Type Department Care Team (Late st Contact Info) Description 06/09/2023 Refill [facility] 230 [place], [place] [phone] Name, MD Harvinder 230 [place], [place] [phone] Hypertension, unspecified type Social History Tobacco Use [...] Description 05/13/2025 10:15 AM EDT Clinical Support [address] [address] Arianne Dukes RN [address] [place] [address] 99013 05/21/2025 9:00 AM EDT Office Visit [address] [address] Name, MD Harvinder [address] [place] [address] 54251 documented as of this encounter Goals Goal [...] documented as of this encounter Care Teams Snag Grinder Relationship Specialty Start Date End Date Name, MD Harvinder [address] [place] [address] 55738 PCP - General Family Medicine 11/17/15 Aubrey Evans MD [address] [place] [address] 54564 General Surgery 05/29/24 06/12/24 Laz Smith MD [address] [place] [address] 99200 Cardiology 12/10/18 Letha Luna MD [address] [place] [address] 51120 Referring Physician Alcohol and Drug Specialist 07/05/16 documented as of this encounter
--- OUTSIDE RECORDS SUMMARY | 2025-04-23 10:30 | XMS_ITS | Clinical Summary ---
Author Organization [facility] Address [address] [address] Care Team Providers Care Client Solutions Specialist Name Role Phone Luis Perdomo MD Primary Care Provider [phone] Allergies Active Allergy Reactions Criticality Noted Date [...] Medicaid [place] Care Teams Client Solutions Specialist Relationship Specialty Start Date End Date Luis Perdomo MD PCP - General Nephrology 09/05/21
--- OUTSIDE RECORDS SUMMARY | 2025-04-23 10:30 | XMS_ITS | Encounter Summary ---
Author Organization [employer] Address [address] [place] [address] 7 [place] [address] Care Team Providers Care Cleaning Maid Name Role Phone Name, Harvinder CLAROS Primary Care Provider [phone] Aubrey Evans MD Unavailable [phone] Laz Smith MD Unavailable [phone] Letha Luna MD Unavailable Reason for Visit * Reason Comments Med Refill Encounter Details Date Type Department Care Team (Late Contact Info) Description 05/14/2023 Refill [facility] [address] [place] [address] [phone] Name, MD Harvinder [address] [place] [address] [phone] Social History Tobacco Use Types Packs/Day Years [...] 10:15 AM EDT Clinical Support [facility] [address] [place] [address] 75342 Arianne Dukes, RN [address] [place] [address] 38164 05/21/2025 9:00 AM EDT Office Visit [facility] [address] [place] [address] 83760 Name, MD Harvinder [address] [place] [address] documented as of this encounter Goals Goal [...] documented as of this encounter Care Teams Cleaning Maid Relationship Specialty Start Date End Date Name, MD Harvinder [address] [place] [address] 45036 PCP - General Family Medicine 11/17/15 Aubrey Evans MD [address] [place] [address] 30995 General Surgery 05/29/24 06/12/24 Laz Smith MD [address] [place] [address] 06050 Cardiology 12/10/18 Letha Luna MD [address] [place] [address] 69318 Referring Physician Alcohol and Drug Specialist 07/05/16 documented as of this encounter
--- OUTSIDE RECORDS SUMMARY | 2025-04-23 10:30 | XMS_ITS | Encounter Summary ---
Author Organization [employer] Address 75 [facility] 7t [place] [address] Care Team Providers Care Elastic Cutter Name Role Phone Name, Harvinder CLAROS Primary Care Provider [phone] Laz Smith MD Unavailable [phone] Letha Luna MD Unavailable Reason for Visit * Reason Comments Med Refill Encounter Details Date Type Department Care Team (Late st Contact Info) Description 08/31/[address] [facility] 230 [place] [address] Name, MD Harvinder 230 [place] [address] Postnasal drip Social History Tobacco Use Types [...] Description 05/13/2025 10:15 AM EDT Clinical Support [facility] [address] [place] [address] 23850 Arianne Dukes, RN [address] [place] [address] 88628 05/21/2025 9:00 AM EDT Office Visit [facility] [address] [place] [address] 95923 Name, MD Harvinder [address] [place] [address] 27269 documented as of this encounter Goals Goal [...] documented as of this encounter Care Teams Elastic Cutter Relationship Specialty Start Date End Date Name, [place] [address] PCP - General Family Medicine 11/17/15 [place] [address] Cardiology 12/10/18 [place] [address] Referring Physician Alcohol and Drug Specialist 07/05/16 documented as of this encounter
--- OUTSIDE RECORDS SUMMARY | 2025-04-23 10:30 | XMS_ITS | Encounter Summary ---
Author Organization [employer] Address 75 [facility] 7t [place] [address] Care Team Providers Care Library Paraprofessional Name Role Phone Name, Harvinder CLAROS Primary Care Provider [phone] Aubrey Evans MD Unavailable [phone] Laz Smith MD Unavailable [phone] Letha Luna MD Unavailable Reason for Visit * Reason Comments Med Refill Encounter Details Date Type Department Care Team (Late st Contact Info) Description 01/23/2024 Refill [facility] 230 [place], [place] [phone] Letha Luna MD 230 [place] [address] Uncomplicated opioid dependence (CMS/HCC) Social History Tobacco [...] Description 05/13/2025 10:15 AM EDT Clinical Support [facility] [address] [place] [address] 47710 Arianne Dukes, RN [address] [place] [address] 18688 05/21/2025 9:00 AM EDT Office Visit [facility] [address] [place] [address] 77518 Harvinder Melvin MD [address] [place] [address] 50313 documented as of this encounter Goals Goal [...] documented as of this encounter Care Teams Library Paraprofessional Relationship Specialty Start Date End Date Harvinder Melvin MD 230 [place] [address] PCP - General Family Medicine 11/17/15 Aubrey Evans MD [address] [place] [address] 26453 General Surgery 05/29/24 06/12/24 Laz Smith MD [address] [place] [address] 91441 Cardiology 12/10/18 Letha Luna MD 230 [place] [address] Referring Physician Alcohol and Drug Specialist 07/05/16 documented as of this encounter
--- OUTSIDE RECORDS SUMMARY | 2025-04-23 10:30 | XMS_ITS | Encounter Summary ---
Author Organization [employer] [facility] Address [address] [place] [address] 7 [place] [address] Care Team Providers Care Instructor Ballroom Dancing Name Role Phone Name, Harvinder CLAROS Primary Care Provider Christina Ceballos PharmD Unavailable Aubrey Evans MD Unavailable Laz Smith MD Unavailable [phone] Letha Luna MD Unavailable Encounter Details Date Type Department Care Team (Late st Contact Info) Description 07/05/2022 Abstract [facility] [address] [place] [address] [phone] Provider, MD Jen Social History Tobacco Use [...] Description 05/13/2025 10:15 AM EDT Clinical Support [facility] [address] [place] [address] [phone] Arianne Dukes, KATHLEEN [address] [place] [address] 69399 05/21/2025 9:00 AM EDT Office Visit [facility] [address] [place] [address] [phone] Name, MD Harvinder [address] [place] [address] 85409 documented as of this encounter Visit Diagnoses Not on filedocumented in this encounter Care Teams Instructor Ballroom Dancing Relationship Specialty Start Date End Date Name, MD Harvinder [address] [place] [address] 28731 PCP - General Family Medicine 11/17/15 Christina Ceballos PharmD [address] [place] [address] 61499 Pharmacist Internal Medicine 12/28/22 02/21/23 Aubrey Evans MD [address] [place] [address] 41841 General Surgery 05/29/24 06/12/24 Laz Smith MD [address] [place] [address] 10009 Cardiology 12/10/18 Letha Luna MD [address] [place] [address] 55038 Referring Physician Alcohol and Drug Specialist 07/05/16 documented as of this encounter
--- OUTSIDE RECORDS SUMMARY | 2025-04-23 10:30 | XMS_ITS | Encounter Summary ---
Author Organization [employer] Address [address] [facility] 7t [place] [address] Care Team Providers Care Pipe Layer Name Role Phone Name, Harvinder CLAROS Primary Care Provider [phone] Aubrey Evans MD Unavailable [phone] Laz Smith MD Unavailable [phone] Letha Luna MD Unavailable Reason for Visit * Reason Comments Med Refill Encounter Details Date Type Department Care Team (Late st Contact Info) Description 01/29/[address] [facility] 230 [place], [place] [phone] Name, MD Harvinder 230 [place], [place] [phone] Social History Tobacco Use Types Packs/Day Years [...] 05/13/2025 10:15 AM EDT Clinical Support [facility] [address] [place] [address] 46940 Arianne Dukes, KATHLEEN [address] [place] [address] 07708 05/21/2025 9:00 AM EDT Office Visit [facility] [address] [place] [address] 87059 NameHarvinder MD [address] [place] [address] 02323 documented as of this encounter Goals Goal [...] documented as of this encounter Care Teams Pipe Layer Relationship Specialty Start Date End Date NameHarvinder MD [address] [place] [address] 03351 PCP - General Family Medicine 11/17/15 Aubrey Evans MD [address] [place] [address] General Surgery 05/29/24 06/12/24 Laz Smith MD [address] [place] [address] [place] [address] 45184 Cardiology 12/10/18 Letha Luna MD [address] [place] [address] 74012 Referring Physician Alcohol and Drug Specialist 07/05/16 documented as of this encounter
--- OUTSIDE RECORDS SUMMARY | 2025-04-23 10:30 | XMS_ITS | Clinical Summary ---
Author Organization [facility] [employer] Address [address] [facility] [place] [address] Phone Care Team Providers Care Verification Specialist Name Role Phone Name, Harvinder CLAROS Primary Care Provider [phone] Allergies No known active allergies Medications amLODIPine-valsar [...] 10/06/2024 9:34 AM EST Plan of Treatment Health Maintenance Due Date [...] Results * Annual BMP Blood Test (02/05/2024) Pathologist [facility] Annual BMP Blood Test abstracted us Historical Provider HEALTH MAINTENANCE Final Result from Last 3 Months or Most Recently Relevant to Health Maintenance Insurance MEDICARE MEDICAID - [place] Advance Directives Documents on File Type Date Recorded Patient Spotter Driver Expl anation Health Care Decision (hx) 08/15/2020 AD CANTRELL DIRECTIVE Health Care Decision (hx) 08/15/2020 AD CANTRELL DIRECTIVE Health Care Decision (hx) 08/15/2020 AD CANTRELL DIRECTIVE Health Care Decision (hx) 08/15/2020 AD CANTRELL DIRECTIVE Care Teams Verification Specialist Relationship Specialty Start Date End Date Name, MD Harvinder [address] [place], [place] PCP - General 10/27/18
--- OUTSIDE RECORDS SUMMARY | 2025-04-23 10:30 | XMS_ITS | Encounter Summary ---
Author Organization [employer] Address [address] [place] [address] Care Team Providers Care Vaccines Solutions Specialist Name Role Phone Name, Harvinder CLAROS Primary Care Provider [phone] Laz Smith MD Unavailable [phone] Letha Luna MD Unavailable Encounter Details Date Type Department Care Team (Late st Contact Info) Description 04/23/2025 Orders Only [facility] External Provider, [facility] Social History Tobacco Use Types Packs/Day Years [...] Description 05/13/2025 10:15 AM EDT Clinical Support [facility] [address] [place] [address] Arianne Dukes, RN [address] [place] [address] 05/21/2025 9:00 AM EDT Office Visit [facility] [address] [place] [address] Name, MD Harvinder [address] [place] [address] documented as of this encounter Goals Goal Patient Goal Type Associated Problems Recent Progress Patient-Stated? Author Record your blood pressure once per day Blood Pressure No Puia, Christina, PharmD Blood Pressure < 140/90 Blood Pressure 110/64(2024 9:51 AM EDT) No Mode Ceballosyssa, PharmD Increase coping skills to promote long-term recovery and improve ability to perform daily activities General On track( 025 12:14 PM EDT) No Arianne Dukes, RN documented as of this encounter Procedures Procedure Name Priority Date/Time Associated Diagnosis Comments US RENAL COMPLETE Routine 04/23/2025 9:2 2 AM EDT documented in this encounter Results * US Renal Complete (04/23/2025 9:22 AM EDT) Anatomical Region Laterality Modality Kidney Ultrasound 04/23/2025 9:22 AM EDT Narrative 04/23/2025 9:51 AM EDT [place] [address] Ultrasound Report Signed Patient: Samuel Escudero MR#: [id number] 8 : 1945 Acct:[id number] Age/Sex: 79 / M ADM Date: 04/23/25 Loc: HO.US Attending Dr: Dick Garcia MD Ordering Physician: Dick Garcia MD Date of Service: 04/23/25 Procedure(s): US renal BI Accession Number(s): [id number] cc: Dick Garcia MD; Lteha Luna MD Reason for Exam: N17.9 - Acute kidney failure, unspecified EXAMINATION: US RETROPERITONEAL LIMITED (RENAL ONLY) CLINICAL INFORMATION: AKF. N17.9. COMPARISON: None available. TECHNIQUE: Real-time ultrasound of the kidneys using grayscale technique. FINDINGS: RIGHT KIDNEY: 9 x 6 x 6 cm (SAG x AP x TRV). Normal echotexture. Normal renal cortical thickness. Mild pelvicalyceal ectasia. No solid or cystic lesion. LEFT KIDNEY: 9 x 4 x 3 cm (SAG x AP x TRV). Normal echotexture. Normal renal cortical thickness. No hydronephrosis. No solid or cystic lesion. There is a 4 mm hyperechoic lesion at the corticomedullary junction of the lower pole. US/US renal BI IMPRESSION: 4 mm nonobstructing calculus, left kidney. Mild pelvicalyceal ectasia, right kidney.. Electronically signed by: John Nugent MD 04/23/2025 09:48 AM EDT Dictated By: John Leach MD Signed By: <Electronically signed by John Bender MD in OV> 04/23/25947 DD/ 1 TD/TT: 04/23/25930 Sports Medicine Physician: Procedure Note Donotuseinterpreter, Image - 04/23/[address] [address] Ultrasound Report Signed Patient: Samuel EscuderoMR#: [id number] 8 : 8Acct:[id number] Age/Sex: 79 / MADM Date: 04/23/25 Loc: HO.US Attending Dr: Dick Garcia MD Ordering Physician: Dick Garcia MD Date of Service: 04/23/25 Procedure(s): US renal BI Accession Number(s): [id number] cc: Dick Garcia MD; Letha Luna MD Reason for Exam: N17.9 - Acute kidney failure, unspecified EXAMINATION: US RETROPERITONEAL LIMITED (RENAL ONLY) CLINICAL INFORMATION: AKF. N17.9. COMPARISON: None available. TECHNIQUE: Real-time ultrasound of the kidneys using grayscale technique. FINDINGS: RIGHT KIDNEY: 9 x 6 x 6 cm (SAG x AP x TRV). Normal echotexture. Normal renal cortical thickness. Mild pelvicalyceal ectasia. No solid or cystic lesion. LEFT KIDNEY: 9 x 4 x 3 cm (SAG x AP x TRV). Normal echotexture. Normal renal cortical thickness. No hydronephrosis. No solid or cystic lesion. There is a 4 mm hyperechoic lesion at the corticomedullary junction of the lower pole. US/US renal BI IMPRESSION: 4 mm nonobstructing calculus, left kidney. Mild pelvicalyceal ectasia, right kidney.. Electronically signed by: John Nugent MD 04/23/2025 09:48 AM EDT Dictated By: John Leach MD Signed By: <Electronically signed by John Bender MDin OV> 04/23/25947 DD/ 1 TD/TT: 04/23/25930 Sports Medicine Physician: [facility] External Provider IMG US PROCEDURES Final Result documented in this encounter Visit Diagnoses Not on filedocumented in this encounter Additional Health Concerns Assessment Noted Time PHQ-9 Depression Total Score: 1 07/02/20 24 9:46 AM EST documented as of this encounter Care Teams Vaccines Solutions Specialist Relationship Specialty Start Date End Date Name, MD Harvinder [address] [place] [address] PCP - General Family Medicine 11/17/15 Laz Smith MD [address] [place] [address] Cardiology 12/10/18 Letha Luna MD [address] [place] [address] Referring Physician Alcohol and Drug Specialist 07/05/16 documented as of this encounter
--- OUTSIDE RECORDS SUMMARY | 2025-04-23 10:30 | XMS_ITS | Clinical Summary ---
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 08/21/2023 Essential tremor [...] Encounters Date Type Department Care Team Description 04/23/2025 Orders Only [facility] External Provider, [facility] 04/15/2025 10:45 AM EDT Clinical Support [address] [address] Arianne Dukes RN Uncomplicated opioid dependence (CMS/HCC) (Primary Dx) 04/15/2025 Travel 04/08/2025 Refill [facility] [address] [place] [address] Arianne Dukes RN Uncomplicated opioid dependence (CMS/HCC) 03/25/2025 9:15 AM EDT Telemedicine [address] [address] Letha Luna MD Uncomplicated opioid dependence (CMS/HCC) (Primary Dx) 03/25/2025 Travel 03/12/[address] [address] Karie Mondragon RN Uncomplicated opioid dependence (CMS/HCC) 02/24/[address] [address] Karie Mondragon RN 02/19/2025 Results Follow-Up [address] [address] Harvinder Melvin MD Basic Metabolic Panel, CBC auto differential, Albumin, Random Urine W/Creatinine 02/18/2025 11:30 AM EDT Office Visit [address] [address] Letha Luna MD Uncomplicated opioid dependence (CMS/HCC) (Primary Dx) 02/18/2025 Travel 02/17/2025 9:30 AM EDT Office Visit [address] [address] Harvinder Melvin MD Memory problem (Primary Dx); Weight loss; History of falling; Stage 3b chronic kidney disease (CMS/HCC); Smoker 02/17/2025 Travel 02/16/[address] [address] Radha Trejo [place] CHARTPREP 02/16/2025 Telephone [facility] [address] [place] [address] Arianne Dukes, KATHLEEN OBAT Communication 02/09/2025 Telephone [facility] [address] [place] [address] Harvinder Melvin MD Chart Prep 02/04/[address] [address] Karie Mondragon RN Uncomplicated opioid dependence ([facility]) 02/03/2025 Patient Outreach [facility] [address] [place] [address] Harvinder Melvin MD Pre-visit Planning ([facility] screening unable to complete. ) from Last [...] Daughter 2 Jamitza No Known Problems Father Austrian No Known Problems Maternal Grandfather No Known Problems Maternal Grandmother Domingo ssed away at 102-was blind Arthritis Mother Alemathewdria No Known Problems Paternal Grandfather No Known Problems Paternal Grandmother No Known Problems Sister 1 Radha No Known Problems Sister 2 Amy Cancer Sister 3 Lashell No Known Problems Sister 5 Cancer Son Austrian Relation Name Status Comments Brother 1 Macho Alive Brother 2 Kvng Alive Brother 3 David Alive Daughter 1 Amy Alive Daughter 2 Jamitza Alive Father Austrian Maternal Grandfather Maternal Grandmother Mother Lisa Paternal Grandfather Paternal Grandmother Sister 1 Radha Alive Sister 2 Amy Alive Sister 3 Lashell Alive Sister 4 Kaben Alive Sister 5 Alive Son Austrian Social History Tobacco Use Types Packs/Day Years [...] Description 05/13/2025 10:15 AM EDT Clinical Support [address] [address] Arianne Dukes, RN [address] [place] [address] 05/21/2025 9:00 AM EDT Office Visit [address] [address] Name, MD Harvinder [address] [place] [address] Health Maintenance Due Date Last Done Comments [...] 025 12:14 PM EDT) No Arianne Dukes, 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 Procedure Name Priority Date/Time Associated Diagnosis Comments US RENAL COMPLETE Routine 04/23/2025 9:2 2 AM EDT COMPREHENSIVE METABOLIC PANEL Routine 04/17/2025 4:25 PM EDT Vitamin D deficiency CBC WITH AUTO DIFFERENTIAL Routine 04/17/2025 4:25 PM EDT Vitamin D deficiency ALBUMIN, RANDOM URINE W/CREATININE Routine 02/17/2025 10:30 [...] 10:29 AM EST Coronary artery disease involving bill moore[place]ough coronary artery of bill moore[place] heart without angina pectoris from Last 3 Months or Most Recently Relevant to Health Maintenance Results * US Renal Complete (04/23/2025 9:22 AM EDT) Anatomical Region Laterality Modality Kidney Ultrasound 04/23/2025 9:22 AM EDT Narrative 04/23/2025 9:51 AM EDT [place] [address] Ultrasound Report Signed Patient: Samuel Escudero MR#: [id number] 8 : 1945 Acct:[id number] Age/Sex: 79 / M ADM Date: 04/23/25 Loc: HO.US Attending Dr: Dick Garcia MD Ordering Physician: Dick Garcia MD Date of Service: 04/23/25 Procedure(s): US renal BI Accession Number(s): [id number] cc: Dick Garcia MD; Letha Luna MD [...] John Nugent MD 04/23/2025 09:48 AM EDT RP Dictated By: John Leach MD Signed By: <Electronically signed by John Bender MD in OV> 04/23/25947 DD/ 1 TD/TT: 04/23/25930 Coroner'S Juror: Procedure Note Donotuseinterpreter, Image - 04/23/[address] [address] Ultrasound Report Signed Patient: Samuel EscuderoMR#: [id number] 8 : 8Acct:[id number] Age/Sex: 79 / MADM Date: 04/23/25 Loc: .US Attending Dr: Dick Garcia MD Ordering Physician: Dick Garcia MD Date of Service: 04/23/25 Procedure(s): US renal BI Accession Number(s): [id number] cc: Dick Garcia MD; Letha Luna MD [...] <Electronically signed by John Bender MDin OV> 04/23/2548 DD/ 1 TD/TT: 04/23/25930 Coroner'S Juror: us [facility] External Provider IMG US PROCEDURES Final Result * (ABNORMAL) CBC auto differential (04/17/2025 4:25 PM EDT) Only the most recent of2 resultswithin the time period is included. White Blood Count 4.9 4.8 - 10.8 X10*3/uL [facility] Red Blood Count 3.57(L) 4.60 - 5.80 X10*6/uL [facility] Hemoglobin 10.7(L) 14.0 - 18.0 g/dl [facility] Hematocrit 33.2(L) 42.0 - 52.0 % [facility] Mean Corpuscular Volume 93.0 80.0 - 98.0 fL [facility] Mean Corpuscular Hemoglobin 30.0 27.0 - 33.0 pg [facility] Mean Corpuscular HGB Conc 32.2 31.0 - 36.0 g/dl [facility] Red Cell Distribution Width 12.8 11.0 - 16.0 % [facility] Platelet Count 162 160 - 400 X10*3/uL [facility] Mean Platelet Volume 11.6 9.4 - 12.4 fL [facility] Neutrophils Percent Auto 50.6 45 - 73 % [facility] Imm Gran Pct Auto 0.2 0.0 - 0.4 % [facility] Lymphocytes Percent Auto 39.1 20 - 40 % [facility] Monocytes Percent Auto 7.9 2 - 11 % [facility] Eosinophils Percent Auto 1.2 0 - 4 % [facility] Basophils Percent Auto 1.0 0 - 2 % [facility] NRBC Pct Auto 0.0 0.0 - 0.2 /100WBC [facility] Neutrophils Absolute Auto 2.5 2.0 - 8.3 x10*3/uL [facility] Imm Gran Abs Auto 0.01 0.00 - 0.03 X10*3/uL [facility] Lymphocytes Absolute Auto 1.9 1.2 - 4.9 X10*3/uL [facility] Monocytes Absolute Auto 0.4 0.1 - 1.2 X10*3/uL [facility] Eosinophils Absolute Auto 0.1 0.0 - 0.4 X10*3/uL [facility] Basophils Absolute Auto 0.1 0.0 - 0.2 X10*3/uL [facility] NRBC Abs Auto 0.000 0.0 - 0.012 X10*3/uL [facility] 04/17/2025 4:25 PM EDT 04/17/2025 4:25 PM EDT us Generic External Data Provider LAB BLOOD ORDERAB LES Final Result [facility] [address] [place] [address] [phone] * (ABNORMAL) Comprehensive Metabolic Panel (04/17/2025 4:25 PM EDT) Sodium 138 135 - 145 mmol/L [facility] Potassium 4.2 3.3 - 5.1 mmol/L [facility] Chloride 102 96 - 108 mmol/L [facility] Carbon Dioxide 27 22 - 29 mmol/L [facility] Anion Gap 13 12 - 20 [facility] Urea Nitrogen (BUN) 22(H) 9 - 16 mg/dL [facility] Creatinine, Serum 1.60(H) 0.5 - 1.4 mg/dL [facility] Estimated Glomerular Filt Rate 42 [facility] Comment:Chronic Kidney Disea se: Estimated GFR < 60 mL/min/1.73w8Otbkeg Kidney Disease: Estimated GFR < 15 mL/min/1.73m2 Glucose 110 60 - 115 mg/dL [facility] Calcium 8.9 8.4 - 10.2 mg/dL [facility] Bilirubin, Total 0.5 0.0 - 1.0 mg/dL [facility] Aspartate Amino Transferase 23 5 - 37 U/L [facility] Alanine Aminotransferase 13 0 - 40 U/L [facility] Total Protein 7.4 6.5 - 8.0 g/dL [facility] Albumin Level 4.2 3.5 - 5.0 g/dL [facility] Alkaline Phosphatase 64 39 - 117 U/L [facility] 04/17/2025 4:25 PM EDT 04/17/2025 4:25 PM EDT us Generic External Data Provider LAB BLOOD ORDERAB LES Final Result [facility] [address] [place] [phone] * Albumin, Random Urine W/Creatinine (02/17/2025 10:30 AM EDT) Creatinine, Urine 196.68 mg/dL [facility] Microalbumin Urine 13.0 mg/L [facility] Microalbum Creatinine Ratio Ur 6.6 <30 ug/mg cr [facility] Comment:Albumin/Creatinine R atio Reference Ranges: Normal: < 30 ug/mg creatinine Microalbuminuria: 30 - 300 ug/mg creatinineClinical Albuminuria: > 300 ug/mg creatinine Urine (Urine, Random) 02/17/2025 10:30 AM EDT 02/17/2025 12:14 PM EDT us Harvinder Melvin MD LAB URINE ORDERABLES Final Resul t Performing Organization Address [facility] de Phone Number [facility] [address] [place] [phone] * (ABNORMAL) Basic Metabolic Panel (02/17/2025 10:30 AM EDT) Sodium 137 135 - 145 mmol/L [facility] Potassium 4.2 3.3 - 5.1 mmol/L [facility] Chloride 101 96 - 108 mmol/L [facility] Carbon Dioxide 28 22 - 29 mmol/L [facility] Anion Gap 12 12 - 20 [facility] Urea Nitrogen (BUN) 21(H) 9 - 16 mg/dL [facility] Creatinine, Serum 2.11(H) 0.5 - 1.4 mg/dL [facility] Estimated Glomerular Filt Rate 31 [facility] Comment:Chronic Kidney Disea se: Estimated GFR < 60 mL/min/1.27m3Wvgfin Kidney Disease: Estimated GFR < 15 mL/min/1.73m2 Glucose 95 60 - 115 mg/dL [facility] Calcium 9.1 8.4 - 10.2 mg/dL [facility] Blood Venous blood specimen / Unknown 02/17/2025 10:30 AM EDT 02/17/2025 12:16 PM EDT us Harvinder Melvin MD LAB BLOOD ORDERABLES Final Resul t Performing Organization Address [facility] Co de Phone Number [facility] [address] [place] [phone] * Hepatitis C Antibody with Reflex to HCV, RNA, Quantitative, Real-Time PCR (11/03/2024 2:01 PM EDT) Hepatitis C Antibody Nonreactive Nonreactive [facility] Comment:Antibodies to HCV no t detected; does not exclude early acuteHCV infection. Blood Venous blood specimen / Unknown 11/03/2024 2:01 PM EDT 11/03/2024 4:02 PM EDT us Harvinder Name MD LAB BLOOD ORDERABLES Final Resul t [facility] [address] [place] [phone] * (ABNORMAL) Lipid Panel, Standard (09/12/2023 10:29 AM EST) Triglycerides 87 <150 mg/dL [facility] Comment:Desirable Triglyceri de: less than 150 mg/dLBorderline High Triglyceride 150-199 mg/dLHigh Triglyceride: 200-499 mg/dLVery High Triglyceride: greater than or equal to 5OO mg/dL Cholesterol 154 <200 mg/dL [facility] Comment:Desirable Cholestero l: less than 200 mg/dLBorderline High Cholesterol: 200-239 mg/dLHigh Cholesterol: greater than 239 mg/dL LDL Cholesterol Calculated 104(H) <100 mg/dL [facility] Comment:Desirable LDL: less than 100 mg/dLNear Optimal/Above Optimal LDL: 110- 129 mg/dLBorderline High LDL: 130-159 mg/dLHigh LDL: 160-189 mg/dLVery High LDL: greater than or equal to 190 mg/dL HDL Cholesterol 33(L) >40 mg/dL [facility] Comment:Desirable HDL: great er than 40 mg/dL Note: This HDL assay may give artificially low results in patients with liver disease. Blood Venous blood specimen / Unknown 09/12/2023 10:29 AM EST 09/12/2023 11:51 AM EST Harvinder Melvin MD LAB BLOOD ORDERABLES Final Resul t [facility] [address] [place] [address] [phone] from Last 3 Months or Most Recently Relevant to Health Maintenance Insurance [facility] [employer] MEDICARE Care Teams Repair Manager Relationship Specialty Start Date End Date Name, MD Harvinder [address] [place] [address] PCP - General Family Medicine 11/17/15 Laz Smith MD [address] [place] [address] Cardiology 12/10/18 Letha Luna MD [address] [place] [address] Referring Physician Alcohol and Drug Specialist 07/05/16
--- OUTSIDE RECORDS SUMMARY | 2025-04-23 10:30 | XMS_ITS | Encounter Summary ---
Author Organization [employer] Address [address] [facility] 7t [place] [address] Care Team Providers Care Drier Unloader Name Role Phone Name, Harvinder CLAROS Primary Care Provider [phone] Aubrey Evans MD Unavailable [phone] Laz Smith MD Unavailable [phone] Letha Luna MD Unavailable Reason for Visit * Reason Comments Med Refill Encounter Details Date Type Department Care Team (Late st Contact Info) Description 01/16/2024 Refill [facility] [address] [place], [place] [phone] Name, MD Harvinder [address] [place], [place] [phone] Social History Tobacco Use Types Packs/Day Years [...] Description 05/13/2025 10:15 AM EDT Clinical Support [facility] [address] [place] [phone] Arianne Dukes, KATHLEEN [address] [place] [address] 05/21/2025 9:00 AM EDT Office Visit [facility] [address] [place] [address] NameHarvinder MD [address] [place] [phone] documented as of this encounter Goals Goal [...] documented as of this encounter Care Teams Drier Unloader Relationship Specialty Start Date End Date NameHarvinder MD [address] [place] [address] PCP - General Family Medicine 11/17/15 Aubrey Evans MD [address] [place] [address] General Surgery 05/29/24 06/12/24 Laz Smith MD [address] [place] [address] [place] [address] Cardiology 12/10/18 Letha Luna MD [address] [place] [address] Referring Physician Alcohol and Drug Specialist 07/05/16 documented as of this encounter
--- OUTSIDE RECORDS SUMMARY | 2025-04-23 10:30 | XMS_ITS | Encounter Summary ---
Author Organization [employer] Address [address] [facility] 7t [place] [address] Care Team Providers Care Molecular Biology Scientist Name Role Phone Name, Harvinder CLAROS Primary Care Provider [phone] Aubrey Evans MD Unavailable [phone] Laz Smith MD Unavailable [phone] Letha Luna MD Unavailable Reason for Visit * Reason Comments Med Refill Encounter Details Date Type Department Care Team (Late st Contact Info) Description 06/09/2024 Refill [facility] [address] [employer], [place] [phone] Name, MD Harvinder [address] [place], [place] [phone] Social History Tobacco Use Types Packs/Day Years [...] 10:15 AM EDT Clinical Support [facility] [address] [place] [phone] Arianne Dukes, KATHLEEN [address] [place] [address] 05/21/2025 9:00 AM EDT Office Visit [facility] [address] [place] [phone] NameHarvinder MD [address] [place] [address] documented as of this encounter Goals Goal [...] documented as of this encounter Care Teams Molecular Biology Scientist Relationship Specialty Start Date End Date NameHarvinder MD [address] [place] [address] PCP - General Family Medicine 11/17/15 Aubrey Evans MD [address] [place] [address] General Surgery 05/29/24 06/12/24 Laz Smith MD [address] [place] [address] [place] [phone] Cardiology 12/10/18 Letha Luna MD [address] [place] [phone] Referring Physician Alcohol and Drug Specialist 07/05/16 documented as of this encounter
[2025-04-23 13:00] LABS: Appearance Urine Clear; Glucose Urine UA 500 mg/dL (Negative); PH 6.0 (5.0-9.0); Specific Gravity - Urine 1.010 (1.005-1.025)
[2025-04-23 13:02] LABS: Total Protein Urine Random < 7 mg/dL (<12)
== END 2025-04-23 09:09 | disposition home or self-care (01) ==
LOC: HO.US 09:08
PROVIDERS: PCP Family Medicine; Visit Provider Internal Medicine Hypertension Specialist
DX: N17.9 Acute kidney failure, unspecified (principal)
CPT/HCPCS: 76775; 81003; 82570; 84156

== ENCOUNTER → 2025-04-23 09:11 | Outpatient (BNV) | payer MEDICARE, MEDICAID, SELFPAY | PROVIDERS: PCP Family Medicine; Visit Provider Radiology Diagnostic Radiology | DX: N20.0 Calculus of kidney (principal) | CPT/HCPCS: 76775 ==